=== PATIENT | male | born 1960 | race Caucasian/White ===

== ENCOUNTER → 2020-11-20 09:12 | Outpatient (BNVA) | payer OTHER, SELFPAY | PROVIDERS: PCP Internal Medicine; Visit Provider Internal Medicine Cardiovascular Disease | DX: I35.0 Nonrheumatic aortic (valve) stenosis (principal); I10 Essential (primary) hypertension; E78.5 Hyperlipidemia, unspecified; G45.9 Transient cerebral ischemic attack, unspecified | CPT/HCPCS: 93005 ==

== ENCOUNTER 2020-12-09 08:18 | Outpatient (REF) | payer OTHER, SELFPAY ==
--- NOTE | ~2020-12-09 | US_ITS ---
EXAMINATION: US EXTRACRANIAL CAROTID DUPLEX, BILATERAL CLINICAL INFORMATION: This is a 60-year-old male with history of TIA, hypertension, hyperlipidemia carotid artery disease. COMPARISON: None TECHNIQUE: Real-time ultrasound and Doppler techniques (integrating B-mode 2-D vascular images, Doppler spectral analysis and color-flow Doppler imaging) were utilized to interrogate the extracranial carotid arteries, the vertebral arteries and proximal subclavian arteries bilaterally. The degree of stenosis is determined by criteria similar to NASCET. FINDINGS: Right Side: 1. There is minimal atherosclerotic plaque seen in the bifurcation/proximal ICA region. 2. The common carotid artery PSV proximally is 115 cm/s and distally 115 cm/s. 3. The proximal internal carotid artery velocities are 145 cm/s systolic and 32 cm/s diastolic. 4. The proximal external carotid artery PSV is 173 cm/s. 5. The vertebral artery shows antegrade flow. 6. The subclavian artery waveforms are normal. Left Side: 1. There is minimal atherosclerotic plaque seen in the bifurcation/proximal ICA region. 2. The common carotid artery PSV proximally is 145 cm/s and distally 128 cm/s. 3. The proximal internal carotid artery velocities are 86 cm/s systolic and 37 cm/s diastolic. 4. The proximal external carotid artery PSV is 155 cm/s. 5. The vertebral artery shows antegrade flow. 6. The subclavian artery waveforms are normal. US/US carotid duplex BI IMPRESSION: 1. RIGHT: Moderate, hemodynamically significant stenosis of the proximal right internal carotid artery corresponding to a 50-79% stenosis by velocity criteria. 2. LEFT: Minimal, non-hemodynamically significant stenosis of the proximal left internal carotid artery corresponding to a 0-49% stenosis by velocity criteria. 3. An arrhythmia was noted during the duplex portion of the examination.
== END 2020-12-09 08:19 | disposition home or self-care (01) ==
LOC: HO.HMGCX 08:18
PROVIDERS: PCP Internal Medicine; Visit Provider Internal Medicine Cardiovascular Disease
DX: G45.9 Transient cerebral ischemic attack, unspecified (principal)
CPT/HCPCS: 93880

== ENCOUNTER → 2020-12-22 15:27 | Outpatient (BNVA) | payer OTHER, SELFPAY | PROVIDERS: PCP Internal Medicine; Visit Provider Surgery Vascular Surgery ==

== ENCOUNTER → 2021-02-26 10:44 | Outpatient (BNVA) | payer OTHER, SELFPAY | PROVIDERS: PCP Internal Medicine; Visit Provider Urology ==

== ENCOUNTER 2021-03-05 09:55 | Outpatient (REF) | payer OTHER, SELFPAY ==
[2021-03-05 10:35] LABS: MANUAL DIFF FLAG NO
[2021-03-05 10:38] LABS: Basophils Percent Auto 0.8 % (0-2); Eosinophils Absolute Auto 0.2 X10*3/uL (0.0-0.4); Eosinophils Percent Auto 4.3 % (0-4); Hematocrit 50.6 % (42-52); Hemoglobin 16.6 g/dl (14.0-18.0); Lymphocytes Absolute Auto 1.7 X10*3/uL (1.2-4.9); Lymphocytes Percent Auto 32.9 % (20-40); Mean Corpuscular HGB Conc 32.8 g/dl (31.0-36.0); Mean Corpuscular Volume 85.3 fL (80-98); Mean Platelet Volume 9.8 fL (9.4-12.4); Monocytes Absolute Auto 0.6 X10*3/uL (0.1-1.2); Monocytes Percent Auto 11.3 % (2-11); Neutrophils Absolute Auto 2.6 X10*3/uL (2.0-8.3); Neutrophils Percent Auto 50.7 % (45-73); Platelet Count 212 X10*3/uL (160-400); Red Blood Count 5.93 X10*6/uL (4.60-5.80); Red Cell Distribution Width 13.5 % (11.0-16.0); White Blood Count 5.1 X10*3/uL (4.8-10.8)
[2021-03-05 11:17] LABS: Alanine Aminotransferase 26 U/L (0-40); Albumin Level 4.3 g/dL (3.5-5.0); Alkaline Phosphatase 101 U/L (39-117); Anion Gap 13 (12-20); Aspartate Amino Transferase 19 U/L (5-37); Bilirubin Total 1.3 mg/dL (0.0-1.0); Blood Urea Nitrogen 18 mg/dL (9-16); Calcium 9.8 mg/dL (8.4-10.2); Carbon Dioxide 24 mmol/L (22-29); Chloride 108 mmol/L (96-108); Cholesterol 162 mg/dL; Estimated Glomerular Filt Rate > 60; Glucose Fasting 105 mg/dL (60-99); HDL Cholesterol 45 mg/dL; LDL Cholesterol Calculated 83 mg/dl; Potassium 4.7 mmol/L (3.3-5.1); Sodium 140 mmol/L (135-145); Total Protein 6.9 g/dL (6.5-8.0); Triglycerides 171 mg/dL
== END 2021-03-05 09:56 | disposition home or self-care (01) ==
LOC: HO.LAB 09:55
PROVIDERS: PCP Internal Medicine; Visit Provider Internal Medicine
DX: Z00.00 Encounter for general adult medical examination without abnormal findings (principal); E11.9 Type 2 diabetes mellitus without complications
CPT/HCPCS: 36415; 80053; 80061; 85025

== ENCOUNTER 2021-07-26 15:20 | Outpatient (REF) | payer OTHER, SELFPAY ==
--- NOTE | ~2021-07-26 | US_ITS ---
EXAMINATION: US EXTRACRANIAL CAROTID DUPLEX, BILATERAL CLINICAL INFORMATION: Occlusion and stenosis of bilateral carotid arteries. COMPARISON: Ultrasound carotid duplex bilateral 12/09/2020. TECHNIQUE: Real-time ultrasound and Doppler techniques (integrating B-mode 2-D vascular images, Doppler spectral analysis and color-flow Doppler imaging) were utilized to interrogate the extracranial carotid arteries, the vertebral arteries and proximal subclavian arteries bilaterally. The degree of stenosis is determined by criteria similar to NASCET. FINDINGS: Right Side: 1. There is minimal atherosclerotic plaque seen in the bifurcation/proximal ICA region. 2. The common carotid artery PSV proximally is 136 cm/s and distally 100 cm/s. Previously proximal and distal systolic velocity measured 115 cm/second. 3. The proximal internal carotid artery velocities are 76.2 cm/s systolic and 74.5 cm/s diastolic. Previously the systolic/diastolic velocity measured 145/32 cm/second 4. The proximal external carotid artery PSV is 125 cm/s. 5. The vertebral artery shows antegrade flow. 6. The subclavian artery waveforms are normal. Left Side: 1. There is minimal atherosclerotic plaque seen in the bifurcation/proximal ICA region. 2. The common carotid artery PSV proximally is 147 cm/s and distally 86.8 cm/s. 3. The proximal internal carotid artery velocities are 67.4 cm/s systolic and 34.6 cm/s diastolic. 4. The proximal external carotid artery PSV is 119 cm/s. 5. The vertebral artery shows antegrade flow. 6. The subclavian artery waveforms are normal. US/US carotid duplex BI IMPRESSION: 1. RIGHT: No hemodynamically significant stenosis. There is 0-49% range ICA stenosis. 2. LEFT: No hemodynamically significant stenosis. There is 0-49% range ICA stenosis. 3. There is improvement in right ICA moderate stenosis from 50-79% to 0-49% on the present exam. There is no change in the left ICA stenosis which is 0-49% range. 4. Normal antegrade flow seen in both vertebral arteries.
== END 2021-07-26 15:21 | disposition home or self-care (01) ==
LOC: HO.US 15:20
PROVIDERS: Visit Provider Surgery Vascular Surgery
DX: I65.23 Occlusion and stenosis of bilateral carotid arteries (principal)
CPT/HCPCS: 93880

== ENCOUNTER → 2021-08-05 15:38 | Outpatient (BNVA) | payer OTHER, SELFPAY | PROVIDERS: PCP Internal Medicine; Visit Provider Surgery Vascular Surgery ==

== ENCOUNTER → 2021-12-03 08:24 | Outpatient (BNVA) | payer OTHER, SELFPAY | PROVIDERS: PCP Internal Medicine; Referring Provider Internal Medicine; Visit Provider Internal Medicine Cardiovascular Disease | DX: R94.31 Abnormal electrocardiogram [ECG] [EKG] (principal) | CPT/HCPCS: 93005 ==

== ENCOUNTER → 2021-12-15 14:17 | Outpatient (REF) | payer OTHER, SELFPAY ==
--- NOTE | 2021-12-15 14:19 | CA_ITS ---
Transthoracic Echocardiogram Patient (Last, First, Middle): Mamadou Bran R Gender: Male Date of : 1960 Age: 61 Procedure Date: 12/15/2021 Procedure Type: Transthoracic Echocardiogram Location: OP Height: 175.26 cm Weight: 96.16 kg BSA: 2.12 m2 Heart Rate: bpm BP: 129 / 77 mmHg Rags Laborer: KERRIE Referring MD: Yan Aldana MD Symptoms: I35.0 - Nonrheumatic aortic (valve) stenosis Study Quality: Fair ECG Rhythm: Sinus Conclusions: - The left ventricular systolic function is normal. The calculated ejection fraction is 62% by biplane method. - There is moderate aortic valve stenosis. Findings Left Ventricle Normal left ventricular cavity size. There is mildly increased left ventricular wall thickness. The left ventricular systolic function is normal. The calculated ejection fraction is 62% by biplane method. There is no evidence of regional wall motion abnormalities. Diastolic function is normal for age. Right Ventricle Normal right ventricular cavity size and systolic function. Atria Both atria are normal in size. Aortic Valve There is moderate calcification of the aortic valve. There is moderate aortic valve stenosis. The peak aortic velocity is 3.09 m/s with a calculated peak gradient of 38 mmHg. The mean gradient is 23 mmHg. The aortic valve area is 1.17 cm2. There is no aortic valve regurgitation. Dimensionless index 0.36. Mitral Valve The mitral valve appears normal. There is no mitral valve regurgitation. There is no mitral valve stenosis. Pulmonic Valve The pulmonic valve was not well visualized. Tricuspid Valve There is trace tricuspid valve regurgitation. The pulmonary artery systolic pressure is normal. Great Vessels The aortic annulus, sinuses of valsalva, asc aorta, and aortic arch are normal in size. Venous The inferior vena cava was not well visualized. The inferior vena cava is normal in size and collapses less than 50% with inspiration. Pericardium/Pleural There is no evidence of pericardial effusion. Prior Study Comparison No prior study available for comparison. Measurements 2D Linear Measurements IVSd: 1.38 0.6-0.9/0.6-1.0 cm LVIDd: 3.66 3.9-5.3/4.2-5.9 cm LVIDd Index: 1.73 2.4-3.2/2.2-3.1 cm/m2 LVIDs: 2.53 2.0-3.6 cm LVPWd: 1.14 0.7-1.1 cm LA Diam: 3.00 2.7-3.8/3.0-4.0 cm LAIDs Index: 1.42 1.5-2.3 cm/m2 LV Mass: 194.48 67-162/88-224 g LV Mass Index: 91.74 43-95/49-115 g/m2 LVOT Diam: 2.00 3.0+(-)1.3 cm 2D Systolic Function EF 4C: 58.40 >55% EF 2C: 65.40 >55% EF BiP: 62.00 >55% Mitral Valve MV Pk E: 0.88 MV PK A: 0.95 MV Decel Time: 208.00 E/A: 0.90 E'Lateral: 9.68 E'Medial: 6.42 E/E' Med: 13.60 E/E' Lat: 9.00 PHT: 61.00 MVA PHT: 3.61 Decel Andrews: 4.21 Aortic Valve AoV Pk Surjit: 3.09 AoV Mn Surjit: 2.27 AoV VTI: 0.69 AoV Pk Grad: 38.00 Aov Mn Grad: 23.00 CLEOPATRA Cont.VTI: 1.17 LVOT LVOT Pk Surjit: 1.12 LVOT Mn Surjit: 0.79 LVOT VTI: 0.26 LVOT Pk Grad: 5.00 LVOT Mn Grad: 3.00 LVOT Diam: 2.00 LVOT Area: 3.14 Diastolic Function MV Pk E: 0.88 MV Pk A: 0.95 E/A: 0.90 E'Medial: 6.42 E/E' Med: 13.60 E' Laterial: 9.68 E/E' Lat: 9.00 Right Ventricle TAPSE (mm): 21.40 TVS' Surjit: 9.46 Tricuspid Valve TR Pk Surjit: 2.51 TR Pk Grad: 25.00 RA Press: 3.00 RVSP: 28.00 Great Vessels Aorta Sinus of Valsalva: 3.65 2.0-3.[address] Ridge: 2.32 1.7-3.4 cm Ao Asc: 3.40 2.1-3.4 cm Ao Arch: 3.10 Updated in Other Vendor System with Status of Final Aba Case MD electronically signed on 12/16/2021 12:07:41 PM with status of Final
== END ==
LOC: HO.CARD 14:17
PROVIDERS: PCP Internal Medicine; Visit Provider Internal Medicine Cardiovascular Disease
DX: I35.0 Nonrheumatic aortic (valve) stenosis (principal)
CPT/HCPCS: 93306

== ENCOUNTER → 2022-01-06 07:52 | Outpatient (REF) | payer OTHER, SELFPAY ==
--- NOTE | ~2022-01-06 | NM_ITS ---
Exercise Myocardial perfusion study Indication: Chest pain to evaluate for myocardial ischemia Technique: The patient was brought in for an exercise perfusion study on 01/06/2022. Patient performed exercise as per Braden protocol and was injected 35 mCi of sestamibi was given intravenously one target HR was achieved. Images were obtained using the SPECT gamma camera interlaced with the gating device. Images were obtained in supine position. Resting perfusion study was performed on 01/11/2022. Patient was administered 35 mCi of sestamibi intravenously at rest. Images were then obtained in supine position. Images obtained with and without CT attenuation. Total DLP 104 mGy-cm. Images were processed with the software and compared side to side in short axis, horizontal long axis and vertical long axis views. Findings: The stress perfusion study showed non attenuated images show absent uptake in the inferoapical and minimally reduced uptake in the inferior and moderately reduced uptake in the basal inferior wall of the LV myocardium. Is also mildly reduced uptake in the inferolateral and inferoseptal wall of the LV myocardium. Anterior septum, anterior anterolateral wall are normally perfused. Attenuation corrected images show absent uptake in the inferoapical wall of the LV myocardium as well as severely reduced uptake in the apex of the LV myocardium. The gated study shows normal LV systolic function with calculated LVEF of 60%. LV cavity is mildly dilated in size. The gated study shows normal systolic wall thickening and contraction of all segments. There is no transient ischemic dilation. Resting study shows non attenuated images show severely reduced uptake in the inferoapical and mid as well as moderately reduced uptake in the basal inferior and mildly reduced septal and inferolateral wall of the LV myocardium with possibly improved uptake in the inferoapical wall of the LV myocardium.. Gating at rest reveals normal systolic wall motion with ejection fraction at 55%. The findings are consistent with [partially reversible defect in the inferoapical and apical wall, either suggestive of mixed ischemia with infarction or severe ischemia in RCA. NM/NM cardiolite stress test Impression: 1. Severe ischemia and inferoapical wall 2. Gated LVEF is 65% 3. Transient ischemic dilatation not present Stress EKG is equivocal for ischemia
--- NOTE | 2022-01-06 07:59 | CA_ITS ---
Acquisition Time: 2022-01-06 08:12:15 Total Exercise Time: 00:07:15 Test Indications: Abnormal ECG Medications: AMLODIPINE ASA ATORVASTATIN CARVEDILOL Protocol: UVALDO Max HR: 150 BPM 93% of Pred: 160 BPM Max BP: 168/086 mmHG Max Work Load: 8.9 METS Exercise stress test with exercise 7 min 15 sec of Uvaldo protocol, without anginal symptoms, with isolated PACs and PVCs, with increased frequency of PVCs in stage 3 and early recovery, with normotensive response to exercise, with EKG abnormalities at baseline ( inferior, anterior Q waves, mild T inversion leads III, V6, slight ST elevation lead III) with no significant changes noted during exercise, recovery. Nuclear images pending. Test reviewed with Dr Case Referred By: Yan Aldana Overread By: SILVIA TANG
== END ==
LOC: HO.CARD 07:52
PROVIDERS: Visit Provider Internal Medicine Cardiovascular Disease
DX: R07.9 Chest pain, unspecified (principal); I25.10 Atherosclerotic heart disease of native coronary artery without angina pectoris; R94.31 Abnormal electrocardiogram [ECG] [EKG]
CPT/HCPCS: 78452; 93017; A9500

== ENCOUNTER 2022-02-17 07:51 | Outpatient (REF) | payer OTHER, SELFPAY ==
[2022-02-17 08:07] LABS: MANUAL DIFF FLAG NO
[2022-02-17 08:54] LABS: Basophils Absolute Auto 0.1 X10*3/uL (0.0-0.2); Basophils Percent Auto 1.3 % (0-2); Eosinophils Absolute Auto 0.2 X10*3/uL (0.0-0.4); Eosinophils Percent Auto 4.8 % (0-4); Hemoglobin 16.7 g/dl (14.0-18.0); Imm Gran Abs Auto 0.01 X10*3/uL (0.00-0.03); Imm Gran Pct Auto 0.2 % (0.0-0.4); Lymphocytes Absolute Auto 1.4 X10*3/uL (1.2-4.9); Lymphocytes Percent Auto 28.1 % (20-40); Mean Corpuscular HGB Conc 33.4 g/dl (31.0-36.0); Mean Corpuscular Hemoglobin 28.1 pg (27.0-33.0); Mean Corpuscular Volume 84.2 fL (80.0-98.0); Mean Platelet Volume 10.2 fL (9.4-12.4); Monocytes Absolute Auto 0.6 X10*3/uL (0.1-1.2); Monocytes Percent Auto 11.5 % (2-11); Neutrophils Absolute Auto 2.6 x10*3/uL (2.0-8.3); Neutrophils Percent Auto 54.1 % (45-73); Platelet Count 203 X10*3/uL (160-400); Red Blood Count 5.94 X10*6/uL (4.60-5.80); Red Cell Distribution Width 13.6 % (11.0-16.0); White Blood Count 4.8 X10*3/uL (4.8-10.8)
[2022-02-17 08:56] LABS: INTERNATIONAL NORM RATIO 0.9 (0.9-1.1); Prothrombin Time 10.5 SEC (10.0-13.1)
[2022-02-17 11:36] LABS: Alanine Aminotransferase 26 U/L (0-40); Albumin Level 4.3 g/dL (3.5-5.0); Alkaline Phosphatase 100 U/L (39-117); Anion Gap 14 (12-20); Aspartate Amino Transferase 19 U/L (5-37); Bilirubin Total 1.1 mg/dL (0.0-1.0); Blood Urea Nitrogen 18 mg/dL (9-16); Calcium 9.4 mg/dL (8.4-10.2); Carbon Dioxide 21 mmol/L (22-29); Chloride 106 mmol/L (96-108); Cholesterol 179 mg/dL; Estimated Glomerular Filt Rate > 60; Glucose Fasting 110 mg/dL (60-99); HDL Cholesterol 46 mg/dL; LDL Cholesterol Calculated 101 mg/dl; Potassium 4.2 mmol/L (3.3-5.1); Sodium 137 mmol/L (135-145); Total Protein 6.8 g/dL (6.5-8.0); Triglycerides 160 mg/dL
== END 2022-02-17 07:52 | disposition home or self-care (01) ==
LOC: HO.LAB 07:51
PROVIDERS: Absent Provider Internal Medicine; PCP Internal Medicine; Visit Provider Internal Medicine Cardiovascular Disease
DX: Z13.0 Encounter for screening for diseases of the blood and blood-forming organs and certain disorders involving the immune mechanism (principal); I10 Essential (primary) hypertension; I25.10 Atherosclerotic heart disease of native coronary artery without angina pectoris; E78.5 Hyperlipidemia, unspecified
CPT/HCPCS: 36415; 80048; 80053; 80061; 85025; 85610

== ENCOUNTER 2022-06-23 13:01 | Outpatient (RCR) | payer OTHER, SELFPAY ==
[2022-06-23 13:00] VITALS: BP 118/62; BP 138/76
--- NOTE | 2022-06-23 15:11 | MHC.CR.ITI ---
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 1 -Other Diagnosis cad, htn, hlp, aortic stenosis -Comments pt alert, oriented x 3. gait even and steady. denies having experienced chest pain, dyspnea since surgery. [Functional Assessment] -6 Min Walk (distance in ft) 1,300 -Stress Test (Mode) walk -METS Achieved 2.89 -Resting HR 74 -Resting BP 118/62 -Resting SpO2 96 -Exercise HR 98 -Exercise BP 138/76 -Exercise SpO2 98 -RPE 9 -Dyspnea No -ECG Summary SR [Pre Rehab] -Pre Rehab Home Exercise Yes -Mode walk -Exercise Minutes/Day 30-45 mins -Exercise Days/Week 7 -Intensity moderate -Comments has been walking every day since 1 week postop. states has improved duration of walk and increased his own stamina greatly -Risk Stratification: Intermediate Functional Risk Participants capacity < 5-6 METs -Fall Risk No -Assistive Devices None [Exercise Plan] [Intervention] -Exercise Prescription NuStep, Recumbent Bike, Recumbent Elliptical, Rower,Treadmill ,UBE,Upright Bike,Weights -Duration Intensity 36 Sessions -Frequency 2-3x/week -Angina with Exercise No [Exercise Education] -Exercise Education Exercise orientation, Exercise safety ,Home exercise, RPE,Self pulse checking,Signs and symptoms, Warmup/cooldown -Date Completed 06/23/22 -Initials JA -Education Summary at intake and ongoing is a nurse who monitor vs and weight daily [Exercise Goals] -Exercise Most Days of the Week Yes -Exercise 30-45 mins/day Yes -Target HR Range +20 - +30 beats above resting -Target RPE range 11-13 -Increase METS next 30 days 0.5-1.0 METS Every two weeks -METs goal by Discharge 4 METS [Nutrition] [Hyperlipidemia] -Hyperlipidemia Yes -Are lab results available Yes -Lipid Draw Date 02/17/22 -Total Cholesterol 179 -LDL 101 -HDL 46 -Tryglycerides 160 [Diabetes] -Diabetes No -Are lab results available Yes -Fasting Glucose 110 -Date 02/17/22 -Monitors Glucose No [Weight Management] -Height 5 ft 9 in -Weight 98.6 kg -Recommended Diet tries to eat low fat foods and watches sodium intake -Comments given reading food lables pamphlet, reducing salt intake and Dash Diet handouts is nurse and monitors diet [Drug/Alchohol Use] -Drug/Alcohol Use No -Type beer -Amount 2 beers q 2 mos -Comment light social drinker [Nutritional Screen (Rate Your Plate)] -Score 62 -Interpretation of Score makes some excellent choices -Comments very nutritionally aware and makes good choices [Nutrition Plan] [Intervention] -Referral(s) Not Applicable [Nutrition Education] -Nutrition Education Hydration, Nutrition, Reading food labels,Signs and symptoms of Hypo/Hyper- glycemia -Date Completed 06/23/22 -Initials ja -Education Summary discussed hydration and nutrition. denies having experienced s/s hypo/ hyperglycemia. 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 states not currently depressed but will monitor and discuss if it occurs -Patient Self-Reports Depression No -Family Support Lives with spouse/others -Comments college aged daughter still lives with family [Psycho/Social Plan] [Intervention] -Referral(s) No consult needed [Psycho/Social Education] -Psycho/Social Education Advanced directives, Coping techniques, Depression and CAD,Positive support system, Relaxation Techniques, Reviewed PHQ9 Score w/pt, Sexuality and CAD,Signs and symptoms of CAD ,Stress management -Date Completed 06/23/22 -Initials ja -Education Summary discussed PHQ9 and depression as well as relaxation and stress management. [Psycho/Social Goals] -Goals Not Applicable [Other Core Comp] [Risk Factors] -Risk Factors Dyslipidemia, Family History of CAD, Hypertension, Obesity -Comments: both parents had CAD w/ GABG / still living 18+ years post CABG [Hypertension] -Hypertention Yes -Resting BP: 118/62 [Tobacco Use] -Patient Tobacco Use Status Never used Tobacco -Patient Interested in Nicotine No Replacement -Exposure to secondhand smoke No [Heart Failure] -Heart Failure No [Other Core Comp Plan] [Intervention] -Referral(s) Self Monitoring BP,Not Applicable [Other Core Comp Education] -Other Core Comp Education HF Disease progression, Medication compliance,Risk factor modifications, RPD Scale/SOB management, Understanding hypertension -Date Completed 06/23/22 -Initials ja -Education Summary has good understanding of medication, RPD/RPE scale and modifying risk factors. [Other Core Comp Goals] -Goals Manage risk factors, Medication compliance, Resting BP < 130/80 [Medication Plan] [Intervention] -Medications metoprolol 25 mg bid furosemide 40 mg daily ASA 81 mg daily Atorvaststin 80 mg daily clopidogrel 75 mg daily -Compliance Patient reports compliance w/ prescribed meds [Medication Education] -Education Importance of medication compliance, Medication purpose, Medication schedule, Medication side effects -Date Completed 06/23/22 -Initials ja -Education Summary has good understanding of medication, purposes, side effects and monitoring [Medication Goals] -Goals Adherence to medication compliance -Comments states maintains medication regimen [Treatment Times] -Rehab Services with ECG Monitor -Time 1300 -End Time 1510 -Visit Duration 130
[2022-07-12 09:23] VITALS: BP 118/78; BMI 32.5
--- NOTE | 2022-07-12 09:36 | MHC.CR.ITR ---
[address] [phone] F: [phone] Please see additional notes from [facility] Cardiac Rehab Reassessment/ITP Cardiac Rehab Reassessment/ITP Start: 06/09/22 09:07 Freq: Status: Active Protocol: Activity Type Activity Date Activity User E-sign Co-sign Detail Recorded Client Recorded Date Recorded By Document 07/12/22 09:23 CANDICE [id number] 07/12/22 09:36 МАРИЯ 07/12/22 09:23 Cardiac Rehab Reassessment/ITP [Exercise] -Formula Maker Required No -Preferred Language Khmer -Progress Note Type 30-Day Note -Total Sessions Attended 7 -Comments pt alert, oriented x 3. gait even and steady. denies having experienced chest pain, dyspnea since surgery. has increased intensity and duration of workout with supervision and guidance. [Functional Assessment] -ECG Summary SR -Home-Based Rehab Pt approved for home-based exercise -Comments very active with ADLS, yard work etc. -Fall Risk No [Exercise Plan] [Intervention] -Exercise Prescription NuStep, Recumbent Bike, Recumbent Elliptical, Rower,Treadmill ,UBE,Upright Bike,Weights -Duration Intensity 36 Sessions -Exercise Minutes/Day 45 -Exercise Days/Week 7 -Angina with Exercise No -Peak METs 5 [Home Exercise] -Mode walk -Frequency daily -Intensity moderate -Comments states has been walking 30-45 minutes daily since 1 week post op [Exercise Education] -Exercise Education Exercise orientation, Exercise safety ,Home exercise, RPE,Self pulse checking,Signs and symptoms, Warmup/cooldown -Date Completed 06/23/22 -Initials JA -Education Summary at intake and ongoing is a nurse who monitor vs and weight daily [Exercise Goals] -Exercise Most Days of the Week Yes -Exercise 30-45 mins/day Yes -Target HR Range +20 - +30 beats above resting -Target RPE range 11-13 -Increase METS next 30 days 0.5-1.0 METS Every two weeks -METs goal by Discharge 4 METS [Nutrition] [Hyperlipidemia] -Are lab results available Yes -Hyperlipidemia Yes [Diabetes] -Diabetes No -Fasting Glucose 110 -Date 02/17/22 [Weight Management] -Weight 100 kg -BMI 32.5 -Comments given reading food lables pamphlet, reducing salt intake and Dash Diet handouts is nurse and monitors diet [Drug/Alchohol Use] -Drug/Alcohol Use No -Comment light social drinker [Nutrition Plan] [Intervention] -Attended Not Applicable [Nutrition Education] -Nutrition Education Hydration, Nutrition, Reading food labels,Signs and symptoms of Hypo/Hyper- glycemia -Date Completed 06/23/22 -Initials ja -Education Summary discussed hydration and nutrition. denies having experienced s/s hypo/ hyperglycemia. [Nutrition Goals] -Goals BMI < 25, Fasting BG 80- 120 mg/dL,HDL > 40,LDL < 70, Total CHOL < 200 [Psycho/Social] -PHQ9 Score 0 -Interpretation of Score low risk for depression -Plan of Action/Follow-up no action needed -Patient Self-Reports Depression No -Comments discussed depression and CAD. states not currently depressed but will monitor and discuss if it occurs [Psycho/Social Plan] [Intervention] -Attended No consult needed [Psycho/Social Education] -Psycho/Social Education Advanced directives, Coping techniques, Depression and CAD,Positive support system, Relaxation Techniques, Reviewed PHQ9 Score w/pt, Sexuality and CAD,Signs and symptoms of CAD ,Stress management -Date Completed 06/23/22 -Initials ja -Education Summary discussed PHQ9 and depression as well as relaxation and stress management. [Psycho/Social Goals] -Goals Not Applicable [Other Core Comp] [Hypertension] -Hypertention Yes -Resting BP: 118/78 -Medication Changes No [Tobacco Use] -Change in Use No [Heart Failure] -Heart Failure No [Other Core Comp Plan] [Intervention] -Attended Self Monitoring BP,Not Applicable [Other Core Comp Education] -Other Core Comp Education HF Disease progression, Medication compliance,Risk factor modifications, RPD Scale/SOB management, Understanding hypertension -Date Completed 06/23/22 -Initials ja -Education Summary has good understanding of medication, RPD/RPE scale and modifying risk factors. [Other Core Comp Goals] -Goals Manage risk factors, Medication compliance, Resting BP < 130/80 [Medication Plan] [Intervention] -Medications metoprolol 25 mg bid furosemide 40 mg daily ASA 81 mg daily Atorvaststin 80 mg daily clopidogrel 75 mg daily -Compliance Patient reports compliance w/ prescribed meds [Medication Education] -Education Importance of medication compliance, Medication purpose, Medication schedule, Medication side effects -Date Completed 06/23/22 -Initials ja -Education Summary has good understanding of medication, purposes, side effects and monitoring [Medication Goals] -Goals Adherence to medication compliance -Comments states maintains medication regimen
[2022-08-08 12:18] VITALS: BP 118/80; BMI 33.2
--- NOTE | 2022-08-08 12:19 | MHC.CR.ITR ---
[address] [phone] F: [phone] Please see additional notes from [facility] Cardiac Rehab Reassessment/ITP Cardiac Rehab Reassessment/ITP Start: 06/09/22 09:07 Freq: Status: Active Protocol: Activity Type Activity Date Activity User E-sign Co-sign Detail Recorded Client Recorded Date Recorded By Document 08/08/22 12:18 МАРИЯ Desktop 08/08/22 12:19 МАРИЯ 08/08/22 12:18 Cardiac Rehab Reassessment/ITP [Exercise] -Tooth Clerk Required No -Preferred Language Greek -Progress Note Type 60-Day Note -Total Sessions Attended 14 -Comments pt alert, oriented x 3. gait even and steady. denies having experienced chest pain, dyspnea since surgery. has increased intensity and duration of workout with supervision and guidance. [Functional Assessment] -ECG Summary SR -Home-Based Rehab Pt approved for home-based exercise -Comments very active with ADLS, yard work etc. -Fall Risk No [Exercise Plan] [Intervention] -Exercise Prescription NuStep, Recumbent Bike, Recumbent Elliptical, Rower,Treadmill ,UBE,Upright Bike,Weights -Duration Intensity 36 Sessions -Exercise Minutes/Day 45 -Exercise Days/Week 7 -Angina with Exercise No -Peak METs 5 [Home Exercise] -Mode walk -Frequency daily -Intensity moderate -Comments states has been walking 30-45 minutes daily since 1 week post op [Exercise Education] -Exercise Education Exercise orientation, Exercise safety ,Home exercise, RPE,Self pulse checking,Signs and symptoms, Warmup/cooldown -Date Completed 06/23/22 -Initials JA -Education Summary at intake and ongoing is a nurse who monitor vs and weight daily [Exercise Goals] -Exercise Most Days of the Week Yes -Exercise 30-45 mins/day Yes -Target HR Range +20 - +30 beats above resting -Target RPE range 11-13 -Increase METS next 30 days 0.5-1.0 METS Every two weeks -METs goal by Discharge 4 METS [Nutrition] [Hyperlipidemia] -Are lab results available Yes -Hyperlipidemia Yes [Diabetes] -Diabetes No -Fasting Glucose 110 -Date 02/17/22 [Weight Management] -Weight 101.9 kg -BMI 33.17 -Comments given reading food lables pamphlet, reducing salt intake and Dash Diet handouts is nurse and monitors diet [Drug/Alchohol Use] -Drug/Alcohol Use No -Comment light social drinker [Nutrition Plan] [Intervention] -Attended Not Applicable [Nutrition Education] -Nutrition Education Hydration, Nutrition, Reading food labels,Signs and symptoms of Hypo/Hyper- glycemia -Date Completed 06/23/22 -Initials ja -Education Summary discussed hydration and nutrition. denies having experienced s/s hypo/ hyperglycemia. [Nutrition Goals] -Goals BMI < 25, Fasting BG 80- 120 mg/dL,HDL > 40,LDL < 70, Total CHOL < 200 [Psycho/Social] -PHQ9 Score 0 -Interpretation of Score low risk for depression -Plan of Action/Follow-up no action needed -Patient Self-Reports Depression No -Comments discussed depression and CAD. states not currently depressed but will monitor and discuss if it occurs [Psycho/Social Plan] [Intervention] -Attended No consult needed [Psycho/Social Education] -Psycho/Social Education Advanced directives, Coping techniques, Depression and CAD,Positive support system, Relaxation Techniques, Reviewed PHQ9 Score w/pt, Sexuality and CAD,Signs and symptoms of CAD ,Stress management -Date Completed 06/23/22 -Initials ja -Education Summary discussed PHQ9 and depression as well as relaxation and stress management. [Psycho/Social Goals] -Goals Not Applicable [Other Core Comp] [Hypertension] -Hypertention Yes -Resting BP: 118/80 -Medication Changes No [Tobacco Use] -Change in Use No [Heart Failure] -Heart Failure No [Other Core Comp Plan] [Intervention] -Attended Self Monitoring BP,Not Applicable [Other Core Comp Education] -Other Core Comp Education HF Disease progression, Medication compliance,Risk factor modifications, RPD Scale/SOB management, Understanding hypertension -Date Completed 06/23/22 -Initials ja -Education Summary has good understanding of medication, RPD/RPE scale and modifying risk factors. [Other Core Comp Goals] -Goals Manage risk factors, Medication compliance, Resting BP < 130/80 [Medication Plan] [Intervention] -Medications metoprolol 25 mg bid furosemide 40 mg daily ASA 81 mg daily Atorvaststin 80 mg daily clopidogrel 75 mg daily -Compliance Patient reports compliance w/ prescribed meds [Medication Education] -Education Importance of medication compliance, Medication purpose, Medication schedule, Medication side effects -Date Completed 06/23/22 -Initials ja -Education Summary has good understanding of medication, purposes, side effects and monitoring [Medication Goals] -Goals Adherence to medication compliance -Comments states maintains medication regimen
[2022-09-20 07:49] VITALS: BP 122/64; BMI 32.9
--- NOTE | 2022-09-20 07:54 | MHC.CR.ITR ---
[address] [phone] F: [phone] Please see additional notes from [facility] Cardiac Rehab Reassessment/ITP Cardiac Rehab Reassessment/ITP Start: 06/09/22 09:07 Freq: Status: Active Protocol: Activity Type Activity Date Activity User E-sign Co-sign Detail Recorded Client Recorded Date Recorded By Document 09/20/22 07:49 KARLENESusanaCANDICE [id number] 09/20/22 07:54 МРАИЯ 09/20/22 07:49 Cardiac Rehab Reassessment/ITP [Exercise] -Accounts Adjustable Clerk Required No -Preferred Language Mongolian -Progress Note Type 90-Day Note -Total Sessions Attended 23 -Comments pt alert, oriented x 3. gait even and steady. denies having experienced chest pain, dyspnea since surgery. has increased intensity and duration of workout with supervision and guidance. [Functional Assessment] -ECG Summary SR -Home-Based Rehab Pt approved for home-based exercise -Comments very active with ADLS, yard work etc. -Fall Risk No [Exercise Plan] [Intervention] -Exercise Prescription NuStep, Recumbent Bike, Recumbent Elliptical, Rower,Treadmill ,UBE,Upright Bike,Weights -Duration Intensity 36 Sessions -Exercise Minutes/Day 60 -Exercise Days/Week 7 -Angina with Exercise No -Peak METs 5 [Home Exercise] -Mode walk -Frequency daily -Intensity moderate -Comments states has been walking 30-45 minutes daily since 1 week post op [Exercise Education] -Exercise Education Exercise orientation, Exercise safety ,Home exercise, RPE,Self pulse checking,Signs and symptoms, Warmup/cooldown -Date Completed 06/23/22 -Initials JA -Education Summary at intake and ongoing is a nurse who monitors vs and weight daily [Exercise Goals] -Exercise Most Days of the Week Yes -Exercise 30-45 mins/day Yes -Target HR Range +20 - +30 beats above resting -Target RPE range 11-13 -Increase METS next 30 days 0.5-1.0 METS Every two weeks -METs goal by Discharge 4 METS [Nutrition] [Hyperlipidemia] -Are lab results available Yes -Hyperlipidemia Yes -Comments 02/17/22 Chol- 179 Tri-160 HDL-46 LDL- 101 [Diabetes] -Diabetes No -Fasting Glucose 110 -Date 02/17/22 [Weight Management] -Weight 101 kg -BMI 32.88 -Comments given reading food lables pamphlet, reducing salt intake and Dash Diet handouts is nurse and monitors diet [Drug/Alchohol Use] -Drug/Alcohol Use No -Comment light social drinker [Nutrition Plan] [Intervention] -Attended Not Applicable [Nutrition Education] -Nutrition Education Hydration, Nutrition, Reading food labels,Signs and symptoms of Hypo/Hyper- glycemia -Date Completed 06/23/22 -Initials ja -Education Summary discussed hydration and nutrition. denies having experienced s/s hypo/ hyperglycemia. [Nutrition Goals] -Goals BMI < 25, Fasting BG 80- 120 mg/dL,HDL > 40,LDL < 70, Total CHOL < 200 [Psycho/Social] -PHQ9 Score 0 -Interpretation of Score low risk for depression -Plan of Action/Follow-up no action needed -Patient Self-Reports Depression No -Comments discussed depression and CAD. states not currently depressed but will monitor and discuss if it occurs [Psycho/Social Plan] [Intervention] -Attended No consult needed [Psycho/Social Education] -Psycho/Social Education Advanced directives, Coping techniques, Depression and CAD,Positive support system, Relaxation Techniques, Reviewed PHQ9 Score w/pt, Sexuality and CAD,Signs and symptoms of CAD ,Stress management -Date Completed 06/23/22 -Initials ja -Education Summary discussed PHQ9 and depression as well as relaxation and stress management. [Psycho/Social Goals] -Goals Not Applicable [Other Core Comp] [Hypertension] -Hypertention Yes -Resting BP: 122/64 -Medication Changes No [Tobacco Use] -Change in Use No [Heart Failure] -Heart Failure No [Other Core Comp Plan] [Intervention] -Attended Self Monitoring BP,Not Applicable [Other Core Comp Education] -Other Core Comp Education HF Disease progression, Medication compliance,Risk factor modifications, RPD Scale/SOB management, Understanding hypertension -Date Completed 06/23/22 -Initials ja -Education Summary has good understanding of medication, RPD/RPE scale and modifying risk factors. [Other Core Comp Goals] -Goals Manage risk factors, Medication compliance, Resting BP < 130/80 [Medication Plan] [Intervention] -Medications metoprolol 25 mg bid furosemide 40 mg daily ASA 81 mg daily Atorvaststin 80 mg daily clopidogrel 75 mg daily -Compliance Patient reports compliance w/ prescribed meds [Medication Education] -Education Importance of medication compliance, Medication purpose, Medication schedule, Medication side effects -Date Completed 06/23/22 -Initials ja -Education Summary has good understanding of medication, purposes, side effects and monitoring [Medication Goals] -Goals Adherence to medication compliance -Comments states maintains medication regimen
[2022-10-27 09:05] VITALS: BP 122/62; BP 122/68; BMI 32.9
--- NOTE | 2022-10-27 09:13 | MHC.CR.ITD ---
[address] [phone] F: [phone] Please see additional notes from [facility] Cardiac Rehab Discharge/ITP Cardiac Rehab Discharge/ITP Start: 06/09/22 09:07 Freq: Status: Active Protocol: Activity Type Activity Date Activity User E-sign Co-sign Detail Recorded Client Recorded Date Recorded By Document 10/27/22 09:05 JATIN Desktop 10/27/22 09:13 JATIN 10/27/22 09:05 Cardiac Rehab Discharge/ITP [Exercise] -Night Clerk Required No -Preferred Language Kiswahili -Total Sessions Attended 36 -Comments pt alert, oriented x 3. gait even and steady. denies having experienced chest pain, dyspnea since surgery. has increased intensity and duration of workout with supervision and guidance. [Functional Assessment] -6 Min Walk (distance in ft) 1,275 -Stress Test (Mode) walk -METS Achieved 2.85 -Resting HR 85 -Resting BP 122/68 -Resting SpO2 97 -Exercise HR 99 -Exercise BP 122/62 -Exercise SpO2 97 -RPE 6 -Dyspnea NO -ECG Summary SR -Fall Risk No [Exercise Plan] [Intervention] -Exercise Prescription NuStep, Recumbent Bike, Recumbent Elliptical, Rower,Treadmill ,UBE,Upright Bike,Weights -Duration Intensity 36 Sessions -Exercise Minutes/Day 60 -Exercise Days/Week 7 -Angina with Exercise No -Peak METs 5.1 [Home Exercise] -Mode walk -Frequency daily -Intensity moderate -Comments CURRENTLY WALKING 60 MIN /DAY. states has been walking 30-45 minutes daily since 1 week post op [Exercise Education] -Exercise Education Exercise orientation, Exercise safety ,Home exercise, RPE,Self pulse checking,Signs and symptoms, Warmup/cooldown -Date Completed 06/23/22 -Initials JA -Education Summary at intake and ongoing is a nurse who monitors vs and weight daily [Exercise Goals] -Exercise Most Days of the Week Yes -Exercise 30-45 mins/day Yes -Target HR Range +20 - +30 beats above resting -Target RPE range 11-13 -Increase METS next 30 days 0.5-1.0 METS Every two weeks -METs goal by Discharge 5 METS [Nutrition] [Hyperlipidemia] -Are lab results available Yes -Hyperlipidemia Yes -Lipid Draw Date 10/07/22 -Total Cholesterol 151 -LDL 87 -HDL 43 -Tryglycerides 109 -Comments 02/17/22 Chol- 179 Tri-160 HDL-46 LDL- 101 [Diabetes] -Diabetes No -Fasting Glucose 107 -Date 10/07/22 [Weight Management] -Weight 101 kg -BMI 32.88 -Comments given reading food lables pamphlet, reducing salt intake and Dash Diet handouts is nurse and monitors diet [Drug/Alchohol Use] -Drug/Alcohol Use No -Comment light social drinker [Nutrition Plan] [Intervention] -Attended Nutrition Brochures,Not Applicable [Nutrition Education] -Nutrition Education Hydration, Nutrition, Reading food labels,Signs and symptoms of Hypo/Hyper- glycemia -Date Completed 06/23/22 -Initials ja -Education Summary discussed hydration and nutrition. denies having experienced s/s hypo/ hyperglycemia. [Nutrition Goals] -Goals BMI < 25, Fasting BG 80- 120 mg/dL,HDL > 40,LDL < 70, Total CHOL < 200 [Psycho/Social] -PHQ9 Score 0 -Interpretation of Score low risk for depression -Plan of Action/Follow-up no action needed -Patient Self-Reports Depression No -Comments discussed depression and CAD. states not currently depressed but will monitor and discuss if it occurs [Psycho/Social Plan] [Intervention] -Attended No consult needed [Psycho/Social Education] -Psycho/Social Education Advanced directives, Coping techniques, Depression and CAD,Positive support system, Relaxation Techniques, Reviewed PHQ9 Score w/pt, Sexuality and CAD,Signs and symptoms of CAD ,Stress management -Date Completed 06/23/22 -Initials ja -Education Summary discussed PHQ9 and depression as well as relaxation and stress management. [Psycho/Social Goals] -Goals Not Applicable [Other Core Comp] [Hypertension] -Hypertention Yes -Resting BP: 122/68 -Medication Changes No [Tobacco Use] -Change in Use No [Other Core Comp Plan] [Intervention] -Attended Self Monitoring BP,Not Applicable [Other Core Comp Education] -Other Core Comp Education HF Disease progression, Medication compliance,Risk factor modifications, RPD Scale/SOB management, Understanding hypertension -Date Completed 06/23/22 -Initials ja -Education Summary has good understanding of medication, RPD/RPE scale and modifying risk factors. [Other Core Comp Goals] -Goals Manage risk factors, Medication compliance, Resting BP < 130/80 [Medication Plan] [Intervention] -Medications metoprolol 25 mg bid furosemide 40 mg daily ASA 81 mg daily Atorvaststin 80 mg daily clopidogrel 75 mg daily -Compliance Patient reports compliance w/ prescribed meds [Medication Education] -Education Importance of medication compliance, Medication purpose, Medication schedule, Medication side effects -Date Completed 06/23/22 -Initials ja -Education Summary has good understanding of medication, purposes, side effects and monitoring [Medication Goals] -Goals Adherence to medication compliance -Comments states maintains medication regimen
== END 2022-10-28 10:31 | disposition home or self-care (01) ==
LOC: HO.CR 13:01
PROVIDERS: PCP Internal Medicine; Visit Provider Thoracic Surgery (Cardiothoracic Vascular Surgery)
DX: Z95.1 Presence of aortocoronary bypass graft (principal)
CPT/HCPCS: 93798

== ENCOUNTER → 2022-07-13 09:22 | Outpatient (REF) | payer OTHER, SELFPAY ==
[2022-06-23 13:00] VITALS: BP 118/62; BP 138/76
--- NOTE | 2022-07-13 09:25 | CA_ITS ---
Transthoracic Echocardiogram Patient (Last, First, Middle): Mamadou Bran R Gender: Male Date of : 1960 Age: 62 Procedure Date: 07/13/2022 Procedure Type: Transthoracic Echocardiogram Location: OP Height: 175.26 cm Weight: 99.79 kg BSA: 2.15 m2 Heart Rate: 72 bpm BP: 118 / 70 mmHg Drilling Machine Operator: SB Referring MD: Yan Aldana MD Symptoms: Z95.2 - Presence of prosthetic heart valve Study Quality: Adequate ECG Rhythm: Sinus Conclusions: - The left ventricular systolic function is normal. The visually estimated ejection fraction is between 60-65%. - A bioprosthetic aortic valve is present. The prosthetic aortic valve appears to be functioning normally. Findings Left Ventricle Normal left ventricular cavity size. There is mildly increased left ventricular wall thickness. The left ventricular systolic function is normal. The visually estimated ejection fraction is between 60-65%. There is no evidence of regional wall motion abnormalities. There is paradoxical septal motion consistent with post-operative status. Diastolic function is normal for age. There is moderate septal asymmetric hypertrophy. LV peak GLS -16%. Right Ventricle Mildly increased right ventricular cavity size. There is moderate to severely decreased right ventricular systolic function. Atria Both atria are normal in size. Aortic Valve A bioprosthetic aortic valve is present. The prosthetic aortic valve appears to be functioning normally. The mean gradient is 13 mmHg. There is no aortic valve regurgitation. Mitral Valve There is mild mitral annular calcification. There is no mitral valve regurgitation. There is no mitral valve stenosis. Pulmonic Valve The pulmonic valve is likely normal. Tricuspid Valve There is trace tricuspid valve regurgitation. There is no evidence of pulmonary hypertension. Great Vessels The asc aorta is normal in size. Venous The inferior vena cava is normal in size and collapses greater than 50% with inspiration. Pericardium/Pleural There is no evidence of pericardial effusion. Prior Study Comparison Changes noted compared to prior study dated: 12/15/2021. s/p AVR. Measurements 2D Linear Measurements IVSd: 1.30 0.6-0.9/0.6-1.0 cm LVIDd: 4.58 3.9-5.3/4.2-5.9 cm LVIDd Index: 2.13 2.4-3.2/2.2-3.1 cm/m2 LVIDs: 2.73 2.0-3.6 cm LVPWd: 1.06 0.7-1.1 cm LA Diam: 4.10 2.7-3.8/3.0-4.0 cm LAIDs Index: 1.91 1.5-2.3 cm/m2 LV Mass: 247.71 67-162/88-224 g LV Mass Index: 115.21 43-95/49-115 g/m2 LVOT Diam: 2.20 3.0+(-)1.3 cm 2D Systolic Function EF 4C: 58.40 >55% EF 2C: 65.30 >55% EF BiP: 62.30 >55% Mitral Valve MV Pk E: 1.13 MV PK A: 0.83 MV Decel Time: 200.00 E/A: 1.40 E'Lateral: 6.85 E'Medial: 5.33 E/E' Med: 21.20 E/E' Lat: 16.50 PHT: 59.00 MVA PHT: 3.73 Decel Elbert: 5.63 Aortic Valve AoV Pk Surjit: 2.41 AoV Mn Surjit: 1.68 AoV VTI: 0.46 AoV Pk Grad: 23.00 Aov Mn Grad: 13.00 CLEOPATRA Cont.VTI: 2.03 LVOT LVOT Pk Srujit: 1.22 LVOT Mn Surjit: 0.86 LVOT VTI: 0.24 LVOT Pk Grad: 6.00 LVOT Mn Grad: 3.00 LVOT Diam: 2.20 LVOT Area: 3.80 Diastolic Function MV Pk E: 1.13 MV Pk A: 0.83 E/A: 1.40 E'Medial: 5.33 E/E' Med: 21.20 E' Laterial: 6.85 E/E' Lat: 16.50 Right Ventricle TAPSE (mm): 7.30 TVS' Surjit: 8.20 Tricuspid Valve TR Pk Surjit: 2.35 TR Pk Grad: 22.00 RA Press: 3.00 RVSP: 25.00 Great Vessels Aorta Ao Asc: 3.20 2.1-3.4 cm Pulmonary Veins Pulm Vein S/D 1.20 Pulmonary Valve PV Pk Surjit: 1.43 Peak PV Grad: 8.00 Updated in Other Vendor System with Status of Final Aba Case MD electronically signed on 07/16/2022 1:59:50 PM with status of Final
== END ==
LOC: HO.CARD 09:22
PROVIDERS: PCP Internal Medicine; Visit Provider Internal Medicine Cardiovascular Disease
DX: Z95.2 Presence of prosthetic heart valve (principal)
CPT/HCPCS: 93306; 93356

== ENCOUNTER 2022-09-08 09:51 | Outpatient (REF) | payer OTHER, SELFPAY ==
[2022-06-23 13:00] VITALS: BP 118/62; BP 138/76
--- NOTE | ~2022-09-08 | US_ITS ---
EXAMINATION: US EXTRACRANIAL CAROTID DUPLEX, BILATERAL CLINICAL INFORMATION: Carotid stenosis. COMPARISON: 07/26/2021. TECHNIQUE: Real-time ultrasound and Doppler techniques (integrating B-mode 2-D vascular images, Doppler spectral analysis and color-flow Doppler imaging) were utilized to interrogate the extracranial carotid arteries, the vertebral arteries and proximal subclavian arteries bilaterally. The degree of stenosis is determined by criteria similar to NASCET. FINDINGS: Right Side: 1. There is minimal atherosclerotic plaque seen in the bifurcation/proximal ICA region. 2. The common carotid artery PSV proximally is 130 cm/s and distally 8. cm/s. 3. The proximal internal carotid artery velocities are 71 cm/s systolic and 22 cm/s diastolic. 4. The proximal external carotid artery PSV is 157 cm/s. 5. The vertebral artery shows antegrade flow. 6. The subclavian artery waveforms are normal. Left Side: 1. There is minimal atherosclerotic plaque seen in the bifurcation/proximal ICA region. 2. The common carotid artery PSV proximally is 88 cm/s and distally 55 cm/s. 3. The proximal internal carotid artery velocities are 73 cm/s systolic and 26 cm/s diastolic. 4. The proximal external carotid artery PSV is 149 cm/s. 5. The vertebral artery shows antegrade flow. 6. The subclavian artery waveforms are normal. US/US carotid duplex BI IMPRESSION: 1. RIGHT: Minimal, non-hemodynamically significant stenosis of the proximal right internal carotid artery corresponding to a 0-49% stenosis by velocity criteria. 2. LEFT: Minimal, non-hemodynamically significant stenosis of the proximal left internal carotid artery corresponding to a 0-49% stenosis by velocity criteria. 3. There is no change in the category severity of disease when compared to the previous study dated 07/26/2021.
== END 2022-09-08 09:52 | disposition home or self-care (01) ==
LOC: HO.US 09:51
PROVIDERS: PCP Internal Medicine; Visit Provider Surgery Vascular Surgery
DX: I65.23 Occlusion and stenosis of bilateral carotid arteries (principal)
CPT/HCPCS: 93880

== ENCOUNTER → 2022-09-20 15:09 | Outpatient (BNVA) | payer OTHER, SELFPAY ==
[2022-06-23 13:00] VITALS: BP 118/62; BP 138/76
[2022-09-20 07:49] VITALS: BP 122/64; BMI 32.9
== END ==
PROVIDERS: PCP Internal Medicine; Visit Provider Surgery Vascular Surgery
DX: Z13.89 Encounter for screening for other disorder (principal)

== ENCOUNTER → 2022-09-30 08:35 | Outpatient (BNVA) | payer OTHER, SELFPAY ==
[2022-06-23 13:00] VITALS: BP 118/62; BP 138/76
[2022-09-20 07:49] VITALS: BP 122/64; BMI 32.9
== END ==
PROVIDERS: PCP Internal Medicine; Visit Provider Internal Medicine Cardiovascular Disease
DX: Z13.89 Encounter for screening for other disorder (principal)
CPT/HCPCS: 93005

== ENCOUNTER 2022-10-07 08:32 | Outpatient (REF) | payer OTHER, SELFPAY ==
[2022-06-23 13:00] VITALS: BP 118/62; BP 138/76
[2022-10-07 08:59] LABS: MANUAL DIFF FLAG NO
[2022-10-07 09:03] LABS: Basophils Absolute Auto 0.1 X10*3/uL (0.0-0.2); Basophils Percent Auto 1.3 % (0-2); Eosinophils Absolute Auto 0.2 X10*3/uL (0.0-0.4); Eosinophils Percent Auto 3.6 % (0-4); Hemoglobin 17.9 g/dl (14.0-18.0); Imm Gran Abs Auto 0.01 X10*3/uL (0.00-0.03); Imm Gran Pct Auto 0.2 % (0.0-0.4); Lymphocytes Absolute Auto 1.5 X10*3/uL (1.2-4.9); Lymphocytes Percent Auto 31.8 % (20-40); Mean Corpuscular HGB Conc 32.5 g/dl (31.0-36.0); Mean Corpuscular Hemoglobin 26.1 pg (27.0-33.0); Mean Corpuscular Volume 80.2 fL (80.0-98.0); Mean Platelet Volume 9.5 fL (9.4-12.4); Monocytes Absolute Auto 0.6 X10*3/uL (0.1-1.2); Monocytes Percent Auto 12.6 % (2-11); Neutrophils Absolute Auto 2.4 x10*3/uL (2.0-8.3); Neutrophils Percent Auto 50.5 % (45-73); Platelet Count 222 X10*3/uL (160-400); Red Blood Count 6.86 X10*6/uL (4.60-5.80); Red Cell Distribution Width 18.2 % (11.0-16.0); White Blood Count 4.8 X10*3/uL (4.8-10.8)
[2022-10-07 09:54] LABS: Alanine Aminotransferase 31 U/L (0-40); Albumin Level 4.3 g/dL (3.5-5.0); Alkaline Phosphatase 106 U/L (39-117); Anion Gap 14 (12-20); Aspartate Amino Transferase 25 U/L (5-37); Bilirubin Total 1.4 mg/dL (0.0-1.0); Blood Urea Nitrogen 17 mg/dL (9-16); Calcium 9.8 mg/dL (8.4-10.2); Carbon Dioxide 26 mmol/L (22-29); Chloride 105 mmol/L (96-108); Cholesterol 151 mg/dL; Estimated Glomerular Filt Rate > 60; Glucose Fasting 107 mg/dL (60-99); HDL Cholesterol 43 mg/dL; LDL Cholesterol Calculated 87 mg/dl; Potassium 5.2 mmol/L (3.3-5.1); Sodium 140 mmol/L (135-145); Total Protein 6.7 g/dL (6.5-8.0); Triglycerides 109 mg/dL
[2022-10-07 10:12] LABS: Thyroid Stimulating Hormone 0.59 uIU/mL (0.32-4.0)
== END 2022-10-07 08:33 | disposition home or self-care (01) ==
LOC: HO.LAB 08:32
PROVIDERS: PCP Internal Medicine; Visit Provider Internal Medicine
DX: N28.9 Disorder of kidney and ureter, unspecified (principal); E03.9 Hypothyroidism, unspecified; I25.10 Atherosclerotic heart disease of native coronary artery without angina pectoris; D64.9 Anemia, unspecified
CPT/HCPCS: 36415; 80053; 80061; 84443; 85025

== ENCOUNTER → 2022-10-11 07:12 | Outpatient (REF) | payer OTHER, SELFPAY ==
[2022-06-23 13:00] VITALS: BP 118/62; BP 138/76
[2022-09-20 07:49] VITALS: BP 122/64; BMI 32.9
--- NOTE | 2022-10-11 07:17 | HM_ITS ---
* Total monitoring time approximately 3 days. * Underlying rhythm is sinus. Average ventricular rate 74/Min. Range 60 to 106/Min. * Very rare PACs with minimal burden. * Very rare PVCs with minimal burden. One short run of 4 beats. * No significant pauses or AV blocks. * Patient markers correlated with normal sinus rhythm. Dizziness and pounding in patient diary also correlate with sinus rhythm. MTDD
== END ==
LOC: HO.CARD 07:12
PROVIDERS: Visit Provider Internal Medicine Cardiovascular Disease
DX: R42 Dizziness and giddiness (principal); Z95.1 Presence of aortocoronary bypass graft
CPT/HCPCS: 93242

== ENCOUNTER 2023-02-14 06:11 | Outpatient (REF) | payer OTHER, SELFPAY ==
[2023-02-14 07:13] LABS: Hematocrit 52.1 % (42.0-52.0); Hemoglobin 17.4 g/dl (14.0-18.0); Mean Corpuscular HGB Conc 33.4 g/dl (31.0-36.0); Mean Corpuscular Hemoglobin 28.5 pg (27.0-33.0); Mean Corpuscular Volume 85.3 fL (80.0-98.0); Mean Platelet Volume 10.4 fL (9.4-12.4); Platelet Count 190 X10*3/uL (160-400); Red Blood Count 6.11 X10*6/uL (4.60-5.80); Red Cell Distribution Width 13.9 % (11.0-16.0); White Blood Count 4.9 X10*3/uL (4.8-10.8)
[2023-02-14 07:45] LABS: Cholesterol 165 mg/dL; HDL Cholesterol 42 mg/dL; LDL Cholesterol Calculated 79 mg/dl; Triglycerides 224 mg/dL
== END 2023-02-14 06:12 | disposition home or self-care (01) ==
LOC: HO.LAB 06:11
PROVIDERS: PCP Internal Medicine; Visit Provider Internal Medicine Cardiovascular Disease
DX: I25.10 Atherosclerotic heart disease of native coronary artery without angina pectoris (principal)
CPT/HCPCS: 36415; 80061; 85027

== ENCOUNTER 2023-04-10 08:47 | Outpatient (AMB) | payer OTHER, SELFPAY ==
[2022-06-23 13:00] VITALS: BP 118/62; BP 138/76
[2023-04-10 08:49] VITALS: BP 122/72; PULSE 78; BMI 34.0
--- NOTE | 2023-04-10 08:49 | A.OFFVIS_ITS ---
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 He has been overall doing very well. Denies any cardiac symptoms. Denies any exertional chest pain or shortness of breath. Most recent lipid panel shows LDL of 79 mg/dL with triglycerides of 224. He has been trying to maintain diet. He denies any prolonged palpitations. No lightheadedness, syncope. [facility] Medical History Aortic stenosis CAD (coronary artery disease) History of kidney stones HTN (hypertension) Hyperlipidemia Surgical History History of appendectomy History of hernia surgery S/P AVR S/P CABG x 3 Family History Father CVD (cardiovascular disease) Mother CVD (cardiovascular disease) Social History Housing: House Alcohol intake: current Alcohol intake frequency: holidays/special occasions only Patient Tobacco Use Status: Never used Tobacco e-Cigarette/Vaping Use: Never Used Second Hand Smoke Exposure: No service: No Current occupational status: employed Cognitive needs: No Hearing needs: No Vision needs: Yes (reading glasses) Review of Systems Const Denies weakness ENT Denies dizziness Card Denies chest pain, Denies chest pain with activity, Denies syncope, Denies rapid heart rate, Denies pedal edema, Denies edema, Denies leg edema, Denies lightheadedness, Denies palpitations, Denies dyspnea, Denies dyspnea on exertion and Denies orthopnea Resp Denies cough, Denies dyspnea and Denies dyspnea on exertion GI Denies hematochezia and Denies change in stool character Musc Denies abnormal gait, Denies muscle cramps, Denies muscle weakness, Denies numbness, Denies radiating pain into limb and Denies tingling Neuro Denies abnormal gait, Denies dizziness, Denies syncope, Denies numbness, Denies tingling and Denies weakness Endo Denies palpitations Physical Exam Vital Signs: Last Vital Signs Pulse 78 04/10/23 08:49 BP 122/72 04/10/23 08:49 BMI result Body Mass Index 34.0 Const General: cooperative, comfortable, no acute distress, alert, awake and anxious Nutritional Appearance: overweight Orientation/consciousness: patient oriented x3 Limitations: no limitations HEENT Head: Yes normocephalic and Yes atraumatic Neck Neck: Yes trachea midline, Yes supple and Yes no JVD Chest Chest palpation & inspection: normal inspection of the chest and other (Well- healed sternotomy scar) Resp Effort & Inspection: normal respiratory effort Auscultation: clear to auscultation bilaterally Cardio Jugular venous distension: no JVD Palpation: normal PMI Rate: regular rate Rhythm: regular rhythm Heart sounds: S1 normal heart sound present, S2 normal heart sound present and Murmur heart sound present systolic early and soft GI Inspection: Yes normal to inspection Skin General skin exam: no rashes or lesions noted Neuro General: patient oriented x3 and no focal motor deficits Extrem General: Yes no clubbing, cyanosis or edema Psych Appearance: grossly normal Assessment & Plan Assessment & Plan (1) CAD (coronary artery disease): Code(s): I25.10 - Atherosclerotic heart disease of [place] coronary artery without angina pectoris Plan: CAD status post 3 vessel coronary bypass grafting with mild carotid disease. Diffuse atherosclerotic process. Needs more aggressive medical therapy. Needs further modification of lipids. Will switch him to bempedoic acid in place of ezetimibe. Target goal LDL closer to 60 mg/dL. Advised to also participate in diet modification. Regular physical activity is recommended. Weight loss recommended. Blood pressure is currently well optimized advised to monitor blood pressure at home maintain a log. Goal blood pressure less than 130/84. Advised to exercise on a regular basis. (2) S/P AVR: Comment: 23 mm bioprosthetic aortic valve concomitant with coronary artery bypass grafting for moderate aortic stenosis Code(s): Z95.2 - Presence of prosthetic heart valve Plan: Status bioprosthetic aortic valve with mild murmur. Does not suggestive any progressive disease of the bioprosthetic valve. Continue aspirin therapy. SBE prophylaxis as per ACC/aha guidelines. Continue aggressive risk factor modifications above. Will follow up in the clinic in 6 months time after an echocardiogram. Thank you for allowing me to partake in his care Medications: New bempedoic acid 180 mg PO DAILY 30 tabs 5RF Discontinued ezetimibe Discontinued Reason: Doctor's Order 10 mg PO DAILY 30 tabs 5RF Coding Level of Care Code Est Pt Level 4 (12832) Diagnoses CAD (coronary artery disease) I25.10 S/P AVR Z95.2
== END 2023-04-10 09:06 | disposition home or self-care (01) ==
PROVIDERS: PCP Internal Medicine; Referring Provider Internal Medicine; Visit Provider Internal Medicine Cardiovascular Disease
DX: I25.10 Atherosclerotic heart disease of native coronary artery without angina pectoris (principal); Z95.2 Presence of prosthetic heart valve
CPT/HCPCS: 99214

== ENCOUNTER → 2023-04-10 08:47 | Outpatient (BNVA) | payer OTHER, SELFPAY | PROVIDERS: PCP Internal Medicine; Referring Provider Internal Medicine; Visit Provider Internal Medicine Cardiovascular Disease ==

== ENCOUNTER 2023-10-13 06:13 | Outpatient (REF) | payer OTHER, SELFPAY ==
[2023-04-10 09:05] VITALS: BP 122/62; BP 122/68; BMI 32.9
[2023-10-13 07:43] LABS: Cholesterol 118 mg/dL (<200); HDL Cholesterol 38 mg/dL (>40); LDL Cholesterol Calculated 6 mg/dL (<100); Triglycerides 371 mg/dL (<150)
[2023-10-16 13:49] LABS: CRP High Sensitivity 0.9 mg/L
== END 2023-10-13 06:14 | disposition home or self-care (01) ==
LOC: HO.LAB 06:13
PROVIDERS: PCP Internal Medicine; Visit Provider Internal Medicine Cardiovascular Disease
DX: I25.10 Atherosclerotic heart disease of native coronary artery without angina pectoris (principal); I10 Essential (primary) hypertension; E78.5 Hyperlipidemia, unspecified
CPT/HCPCS: 36415; 80061; 86141

== ENCOUNTER 2023-10-19 08:37 | Outpatient (AMB) | payer OTHER, SELFPAY ==
[2023-04-10 09:05] VITALS: BP 122/62; BP 122/68; BMI 32.9
--- NOTE | 2023-10-19 08:48 | MHC.OFFVIS ---
Intake Vital Signs 10/19/23 08:49 Height 5 ft 9 in Weight 224 lb 13.944 oz BMI 33.2 BP 112/72 Blood Pressure Location Lt brachial Position Sitting Pulse 66 Intake Visit Reasons: 6 mth f/up echo Intake Note: pt is here for 6 month follow up ECHO Allergies No Known Allergies Allergy (Verified 04/10/23 08:51) Medication List - Last Reconciled 10/19/23 by Yan Aldana MD aspirin 81 mg PO DAILY atorvastatin 40 mg PO BEDTIME bempedoic acid 180 mg PO DAILY metoprolol tartrate 25 mg PO BID 90 days HPI HPI Comments History of Present Illness Details Mamadou comes for follow-up. Continues to have symptoms of dizziness, says that he feels like he swaying. He also gets dizziness in the shower. He said he does not drink enough water in the day. He has not had any syncopal episodes. No incoordination imbalance or any focal neurologic deficits. He denies any prolonged palpitation irregular heartbeat. Remains active. He had carotid duplex last year which showed mild disease. His last LDL was 6 mg/dL after adding bempedoic acid. We had therefore reduced his atorvastatin to 40 mg daily. No heart failure symptoms. [facility] Medical History CAD (coronary artery disease) History of kidney stones Hyperlipidemia Aortic stenosis HTN (hypertension) Surgical History S/P CABG x 3 S/P AVR History of appendectomy History of hernia surgery Family History Father CVD (cardiovascular disease) Mother CVD (cardiovascular disease) Social History Housing: House Alcohol intake: current Alcohol intake frequency: holidays/special occasions only Patient Tobacco Use Status: Never used Tobacco e-Cigarette/Vaping Use: Never Used Second Hand Smoke Exposure: No service: No Current occupational status: employed Cognitive needs: No Hearing needs: No Vision needs: Yes (reading glasses) Review of Systems Const Denies weakness ENT Denies dizziness Card Details: dizziness Denies chest pain, Denies chest pain with activity, Denies syncope, Denies rapid heart rate, Denies pedal edema, Denies edema, Denies leg edema, Denies lightheadedness, Denies palpitations, Denies dyspnea, Denies dyspnea on exertion and Denies orthopnea Resp Denies cough, Denies dyspnea and Denies dyspnea on exertion GI Denies hematochezia and Denies change in stool character Musc Denies abnormal gait, Denies muscle cramps, Denies muscle weakness, Denies numbness, Denies radiating pain into limb and Denies tingling Neuro Denies abnormal gait, Denies dizziness, Denies syncope, Denies numbness, Denies tingling and Denies weakness Endo Denies palpitations Physical Exam Vital Signs: Last Vital Signs Pulse 66 10/19/23 08:49 BP 112/72 10/19/23 08:49 BMI result Body Mass Index 33.2 Const General: cooperative, comfortable, no acute distress, alert, awake and anxious Nutritional Appearance: overweight Orientation/consciousness: patient oriented x3 Limitations: no limitations HEENT Head: Yes normocephalic and Yes atraumatic Neck Neck: Yes trachea midline, Yes supple and Yes no JVD Chest Chest palpation & inspection: normal inspection of the chest and other (Well-healed sternotomy scar) Resp Effort & Inspection: normal respiratory effort Auscultation: clear to auscultation bilaterally Cardio Jugular venous distension: no JVD Palpation: normal PMI Rate: regular rate Rhythm: regular rhythm Heart sounds: S1 normal heart sound present, S2 normal heart sound present and Murmur heart sound present systolic early and soft GI Inspection: Yes normal to inspection Skin General skin exam: no rashes or lesions noted Neuro General: patient oriented x3 and no focal motor deficits Extrem General: Yes no clubbing, cyanosis or edema Psych Appearance: grossly normal Office Procedures EKG Details: EKGs showing normal sinus rhythm with rightward axis with QS pattern in lead V1 V2 with diffuse ST T wave changes suggestive of repolarization abnormality suggestion of LVH [id number], Complete Assessment & Plan Assessment & Plan (1) CAD (coronary artery disease): Code(s): I25.10 - Atherosclerotic heart disease of [place] coronary artery without angina pectoris Plan: CAD status post coronary artery bypass grafting with no symptoms. His symptoms of dizziness unexplained. His Holter monitor and carotid duplex last year within normal limits. Could be orthostatic lightheadedness. At this point time there is no major clinical role for metoprolol therapy. Have advised him to taper and discontinue metoprolol therapy. Advised to monitor blood pressure at home. Also advised to increase his water intake. Orthostatic precautions were discussed. If he continues to have symptoms, consultation with Neurology should be considered. Continue lifelong aspirin therapy. Continue current statin therapy. Follow-up lipid panel in 3 months time. Advised to modify diet especially food with high glycemic index to see if triglycerides would improve. If triglycerides does not improve and will probably add fenofibrate therapy to his regimen. (2) S/P AVR: Comment: 23 mm bioprosthetic aortic valve concomitant with coronary artery bypass grafting for moderate aortic stenosis Code(s): Z95.2 - Presence of prosthetic heart valve Plan: Prior aortic valve replacement at time of coronary bypass grafting. Doing well clinically. Continue aggressive vascular risk factor modifications above. Continue aspirin therapy. SBE prophylaxis as per ACC/aha guidelines. Follow-up echocardiogram near future. He is encouraged to continue to participate in heart healthy lifestyle. Will follow up in the clinic in 1 year's time, sooner p.r.n.. Thank you for allowing me to partake in his care Orders: Orders Lipid Panel 3 Months I25.10 - Atherosclerotic heart disease of [place] coronary artery without angina pectoris CA echo transthoracic complete Today Z95.2 - Presence of prosthetic heart valve Medications: Discontinued metoprolol tartrate Discontinued Reason: Doctor's Order 25 mg PO BID 90 days 180 tabs 3RF Coding Level of Care Code Est Pt Level 4 (98891) Diagnoses CAD (coronary artery disease) I25.10 S/P AVR Z95.2 CPT Codes EKG - CPT: 11666-[id number], Complete ([id number])
[2023-10-19 08:49] VITALS: BP 112/72; PULSE 66; BMI 33.2
== END 2023-10-19 09:16 | disposition home or self-care (01) ==
PROVIDERS: PCP Internal Medicine; Visit Provider Internal Medicine Cardiovascular Disease
DX: I25.10 Atherosclerotic heart disease of native coronary artery without angina pectoris (principal); Z95.2 Presence of prosthetic heart valve
CPT/HCPCS: 93010; 99214

== ENCOUNTER → 2023-10-19 08:37 | Outpatient (BNVA) | payer OTHER, SELFPAY ==
[2023-04-10 09:05] VITALS: BP 122/62; BP 122/68; BMI 32.9
== END ==
PROVIDERS: PCP Internal Medicine; Visit Provider Internal Medicine Cardiovascular Disease
DX: I25.10 Atherosclerotic heart disease of native coronary artery without angina pectoris (principal); Z95.2 Presence of prosthetic heart valve; Z79.82 Long term (current) use of aspirin; Z79.899 Other long term (current) drug therapy
CPT/HCPCS: 93005

== ENCOUNTER 2024-12-26 15:32 | Outpatient (AMB) | payer OTHER, SELFPAY ==
[2023-04-10 09:05] VITALS: BP 122/62; BP 122/68; BMI 32.9
--- NOTE | 2024-12-26 15:35 | A.OFFVIS_ITS ---
Vital Signs 12/26/24 15:36 Height 5 ft 9 in Weight 218 lb 4.122 oz BMI 32.2 BP 152/84 H Blood Pressure Location Lt brachial Position Sitting Pulse 93 Intake Visit Reasons: r/s 10/28/24/12/19 1 yr followup w/ekg Intake Note: 1 year follow-up with ekg feeling good Professor Of Voice Required: No Allergies No Known Allergies Allergy (Verified 04/10/23 08:51) Medication List - Last Reconciled 12/26/24 by Yan Aldana MD aspirin 81 mg PO DAILY atorvastatin 40 mg PO BEDTIME bempedoic acid (Nexletol) 180 mg PO DAILY HPI Comments Details: Mamadou comes for follow-up. Overall he has been doing well. Denies any exertional symptoms. Denies any exertional chest pain or shortness of breath. He says blood pressures been running 140-145 at home. Denies any prolonged palpitation irregular heartbeat. Denies any orthopnea, PND, leg edema. Takes all his medications. Has not been to a dentist for some time. [facility] Medical History CAD (coronary artery disease) History of kidney stones Hyperlipidemia Aortic stenosis HTN (hypertension) Surgical History S/P CABG x 3 S/P AVR History of appendectomy History of hernia surgery Family History Father CVD (cardiovascular disease) Mother CVD (cardiovascular disease) Social History Housing: House Alcohol intake: current Alcohol intake frequency: holidays/special occasions only Patient Tobacco Use Status: Never used Tobacco e-Cigarette/Vaping Use: Never Used Second Hand Smoke Exposure: No service: No Current occupational status: employed Cognitive needs: No Hearing needs: No Vision needs: Yes (reading glasses) Review of Systems Const Denies chills, Denies fatigue, Denies fever(s), Denies frequent falls, Denies weakness, Denies weight gain and Denies weight loss ENT Denies dizziness Card Denies chest pain, Denies leg edema, Denies lightheadedness, Denies palpitations, Denies dyspnea, Denies dyspnea on exertion, Denies orthopnea and Denies other (loss of consciousness) Resp Denies cough, Denies dyspnea and Denies dyspnea on exertion GI Denies hematochezia and Denies change in stool character Musc Denies abnormal gait, Denies muscle weakness, Denies numbness, Denies radiating pain into limb and Denies tingling Neuro Denies abnormal gait, Denies dizziness, Denies frequent falls, Denies numbness, Denies tingling and Denies weakness Endo Denies fatigue and Denies palpitations Physical Exam Vital Signs: BMI result Body Mass Index 32.2 Const General: cooperative, comfortable, no acute distress, alert, awake and anxious Nutritional Appearance: overweight Orientation/consciousness: patient oriented x3 Limitations: no limitations HEENT Head: Yes normocephalic and Yes atraumatic Neck Neck: Yes trachea midline, Yes supple and Yes no JVD Chest Chest palpation & inspection: normal inspection of the chest and other (Well- healed sternotomy scar) Resp Effort & Inspection: normal respiratory effort Auscultation: clear to auscultation bilaterally Cardio Jugular venous distension: no JVD Palpation: normal PMI Rate: regular rate Rhythm: regular rhythm Heart sounds: S1 normal heart sound present, S2 normal heart sound present and Murmur heart sound present systolic early and soft GI Inspection: Yes normal to inspection Skin General skin exam: no rashes or lesions noted Neuro General: patient oriented x3 and no focal motor deficits Extrem General: Yes no clubbing, cyanosis or edema Psych Appearance: grossly normal Office Procedures EKG Details: EKG shows normal sinus rhythm with rightward axis with suggestion of LVH with repolarization abnormality with small Q-waves in lead 3 [id number], Complete Assessment & Plan Assessment & Plan (1) CAD (coronary artery disease): Code(s): I25.10 - Atherosclerotic heart disease of [place] coronary artery without angina pectoris Category: Medical Plan: CAD status post coronary artery bypass grafting with no recurrent symptoms of angina at current point time. Continue aggressive risk factor modification. Low-dose aspirin therapy for life. Continue dual therapy with atorvastatin and bempedoic acid. Advised lipid panel in near future. Target goal LDL less than 60 mg/dL. Needs better blood pressure control. Recommend low-dose amlodipine therapy 2.5 mg daily. Stress mitigation strategies was discussed. Low-salt diet was discussed. Advised to monitor blood pressure at home and maintain a log and give me a call in about a month's time to see if he requires further uptitration medications. Management was discussed he understands agrees. (2) S/P AVR: Comment: 23 mm bioprosthetic aortic valve concomitant with coronary artery bypass grafting for moderate aortic stenosis Code(s): Z95.2 - Presence of prosthetic heart valve Category: Surgical Plan: Status post aortic valve replacement with no recent echocardiogram. Recommend echocardiogram near future to assess for valve function. Continue low-dose aspirin therapy. Continue aggressive risk factor modifications above. SBE prophylaxis as per ACC/aha guidelines. Follow up in the clinic in 1 year's time, sooner p.r.n.. Thank you for allowing me to partake in his care Orders: Orders CA echo transthoracic complete Today Z95.2 - Presence of prosthetic heart valve Lipid Panel Today I25.10 - Atherosclerotic heart disease of [place] coronary artery without angina pectoris Medications: New amlodipine 2.5 mg PO DAILY 30 tabs 3RF Z95.2 - Presence of prosthetic heart valve Coding Level of Care Code Est Pt Level 4 (01250) Complex EM visit Add On G2211 Diagnoses CAD (coronary artery disease) I25.10 S/P AVR Z95.2 CPT Codes EKG - CPT: 37102-[id number], Complete ([id number])
[2024-12-26 15:36] VITALS: BP 152/84; PULSE 93; BMI 32.2
--- OUTSIDE RECORDS SUMMARY | 2024-12-26 16:04 | XMS_ITS | Referral Summary ---
Author Organization [facility] Address [address] [place] [address] Care Team Providers Care Refrigeration Person Name Role Phone Patient, Has No Pcp Or Ref Primary Care Provider Unavailable Allergies No known active allergies Medications carvediloL (COREG) 3.125 mg tablet Take 1 tablet (3.125 mg total) by mouth 2 (two) times a day. 60 tablet 1 11/07/2020 Active atorvastatin (LIPITOR) 20 mg tablet Take 1 tablet (20 mg total) by mouth nightly. 30 tablet 1 11/07/2020 Active aspirin 81 mg EC tablet Take 1 tablet (81 mg total) by mouth daily. Patient can take OTC alternatives . 30 tablet 1 11/08/2020 Active amLODIPine (NORVASC) 2.5 mg tablet Take 1 tablet (2.5 mg total) by mouth daily. 30 tablet 1 11/08/2020 Active Active Problems Problem Noted Date Diagnosed Date Mild aortic stenosis 11/06/2020 Assessment & Plan (11/06/2020 2:39 PM EDT): Patient has a systolic murmur on exam. He reports no known previous history of murmur. -Follow up ECHO. Assessment & Plan (11/06/2020 6:14 AM EDT): Patient has a systolic murmur on exam. He reports no known previous history of murmur. -TTE ordered Mixed hyperlipidemia 11/06/2020 Assessment & Plan (11/06/2020 2:40 PM EDT): -Lipid panel showed mixed hyperlipidemia. I discussed with the patient about potential benefit/risks of statin treatment. He is agreeable to proceed. LFTs normal. Will start patient on atorvastatin 20mg at bedtime. Lipids Latest Ref Rng & Units 11/06/2020 CHOLESTEROL <200 mg/dL 310(H) TRIGLYCERIDES <150 mg/dL 129 HDL 40 - 59 mg/dL 60(H) LDL <100 mg/dL 224(H) Disorder of maxillary sinus 11/06/2020 Assessment & Plan (11/06/2020 2:43 PM EDT): -MRI of brain showed inflammatory changes of the right maxillary sinus. Patient does have chronic hearing loss on the left ear. He denies any acute symptoms. No fever or nasal discharge. Denies tender by palpation. Will hold off antibiotics treatment. -Outpatient referral to ENT doctor by his primary care physician. He declined a referral to [facility] ENT clinic. Hypertensive urgency 11/05/2020 Assessment & Plan (11/06/2020 2:46 PM EDT): Patient with a history of untreated hypertension presented with disequilibrium/flushing episodes and episodes of vision changes. Blood pressure was elevated at 220/112. EKG revealed evidence of LVH; no ST elevations or depressions. Troponin negative. Denies chest pain. Patient received small doses of IV labetalol and oral labetalol. Received lisinopril 10mg. His blood pressure much improved. -I discussed with the patient and extensively about anti-HTN medications and potential benefit/side effects. Will start patient on amlodipine 2.5mg daily and coreg 3.125mg twice daily. -The patient is setting up to see a primary care physician. He should discuss with his primary care physician about workup for potential secondary HTN. -Urine vanillylmandelic acid ordered by the ED physician as there was initial concern for pheochromocytoma; results pending. -Monitor BP. -Follow up ECHO. Assessment & Plan (11/06/2020 6:17 AM EDT): Patient with a history of untreated hypertension presented with disequilibrium/flushing episodes and one episode of vision changes. Blood pressure was elevated at 220/112. Concern for possible PRESS syndrome vs TIA/stroke. EKG revealed evidence of LVH; no ST elevations or depressions. Troponin negative. Patient received 2.5 mg of IV labetalol x2 and oral labetalol 50 mg once while in the emergency department to good effect. -Start lisinopril 10 mg p.o. daily -Urine vanillylmandelic acid ordered by the ED physician as there was initial concern for pheochromocytoma; results pending -Monitor BP Transient ischemic attack 11/05/2020 Assessment & Plan (11/06/2020 2:39 PM EDT): Patient with an episode of vision changes and disequilibrium 2 days prior to presentation, followed by 3 episodes of disequilibrium with nausea and flushing on the day of presentation. Patient symptoms were concerning for TIA. -CT of head without contrast showed No acute intracranial abnormality . -MRI showed No focal brain parenchymal abnormality. Inflammatory changes of the right maxillary sinus . MRA of head showed No large vessel occlusion, hemodynamically significant stenosis, aneurysm or AV malformation of the major intracranial arteries . -The patient denies history of bleeding disorder or GI bleed. He is started on aspirin 81mg daily and atorvastatin 20mg at bedtime. -Follow up hemoglobin A1c. -Follow up with neurology as outpatient. Patient is establishing care with a primary care physician locally and prefers to keep his care at his local area. He should discuss with his PCP to ask for a referral to neurology as outpatient. Assessment & Plan (11/06/2020 6:10 AM EDT): Patient with an episode of vision changes and disequilibrium 2 days prior to presentation, followed by 3 episodes of disequilibrium with nausea and flushing on the day of presentation. Patient symptoms concerning for TIA. Differential also includes PRESS syndrome, as patient's blood pressure was very elevated. Patient is currently asymptomatic. -CT head ordered stat -MRI of the brain and MRA -Telemetry monitoring -TTE -Lipid panel, A1c Hypertension 11/05/2020 Social History Tobacco Use Types Packs/Day Years Used Date Smoking Tobacco: Never Smokeless Tobacco: Never Alcohol Use Standard Drinks/Week Comments Not Currently 0 (1 standard drink = 0.6 oz pur e alcohol) Sex and Gender Information Value Date Recorded Sex Assigned at Not on file Legal Sex Male 12:35 PM EDT Gender Identity Not on file Sexual Orientation Not on file Last Filed Vital Signs Vital Sign Reading Time Taken Comments Blood Pressure 128/94 11/07/2020 10:21 AM EDT Pulse 88 11/07/2020 10:21 AM EDT Temperature 37 ??C (98.6 ??F) 11/07/2020 10: 21 AM EDT Respiratory Rate 18 11/07/2020 10:2 1 AM EDT Oxygen Saturation 97% 11/07/2020 10: 21 AM EDT Inhaled Oxygen Concentration - - Weight 96.5 kg (212 lb 12.8 oz) 021 10:09 AM EDT Height 180.3 cm (5' 11 ) 11/06/2020 11: 53 AM EDT Body Mass Index 29.68 11/06/2020 11:53 AM EDT Plan of Treatment Not on file Procedures * Due to [place] Double the Donation law, this organization might not be sharing negative HIV tests. Procedure Name Priority Date/Time Associated Diagnosis Comments BASIC METABOLIC PANEL Timed 11/07/2020 6:47 AM EDT HEPATITIS C ANTIBODY W/REFLEX TO HCV RNA, QUANTITATIVE PCR STAT 11/05/2020 1:59 PM EDT from Last 3 Months or Most Recently Relevant to Health Maintenance Results * Due to [place] Double the Donation law, this organization might not be sharing negative HIV tests. * (ABNORMAL) Basic metabolic panel (11/07/2020 6:47 AM EDT) NA 136 135 - 145 mmol/L 11/07/2020 7:35 AM EDT [facility] K 3.9 3.5 - 5.3 mmol/L 11/07/2020 7:35 AM EDT [facility] Cl 103 97 - 110 mmol/L 11/07/2020 7:35 AM EDT [facility] CO2 25 24 - 32 mmol/L 11/07/2020 7:35 AM EDT [facility] BUN 21 7 - 23 mg/dL 11/07/2020 7:35 AM EDT [facility] Creatinine 0.99 0.60 - 1.30 mg/dL 11/07/2020 7:35 AM EDT [facility] Glucose 119(H) 70 - 99 mg/dL 11/07/2020 7:35 AM EDT [facility] Calcium 9.4 8.7 - 10.7 mg/dL 11/07/2020 7:35 AM EDT [facility] Anion Gap 8 5 - 15 11/07/2020 7:35 AM EDT [facility] eGFR Non- 83(L) >=90 mL/min/BS A 11/07/2020 7:35 AM EDT [facility] eGFR >90 >=90 mL/min/BS A 11/07/2020 7:35 AM EDT [facility] Comment: Units = mL/min/1.73 m2 Glomerular Filtration Rate (GFR) is estimated based on the CKD-EPI Creatinine Equation (2009). Stage ?Description ? GFR 1 ? Normal ? >=90 mL/min/BSA 2 ? Mildly decreased GFR ? 60-89 mL/min/BSA 3 ? Moderately decreased GFR ? 30-59 mL/min/BSA 4 ? Severely decreased GFR ? 15-29 mL/min/BSA 5 ? Kidney Failure ? <15 mL/min/BSA Blood Structure of peripheral vein / Unknown Venipuncture / Unknown 11/07/2020 6:47 AM EDT 11/07/2020 7:04 AM EDT us Laura Patel MD PhD LAB BLOOD ORDERABLES Final Resu lt [facility] [address] [place] [address], [place] * Hepatitis C Antibody w/Reflex to HCV RNA, Quantitative PCR (11/05/2020 1:59 PM EDT) Hepatitis C Antibody NON-REACT JAYME NON-REACT JAYME 11/06/2020 2:21 AM EDT [facility] [employer] Signal To Cut-Off 0.01 <1.00 11/06/2020 2:21 AM EDT [facility] Comment: HCV antibody was non-reactive. There is no laboratory evidence of HCV infection. In most cases, no further action is required. However, if recent HCV exposure is suspected, a test for HCV RNA (test code 42543) is suggested. For additional information please refer to http://education.Alminder/faq/EDO15j4 (This link is being provided for informational/ educational purposes only.) Blood Structure of peripheral vein / Unknown Venipuncture / Unknown 11/05/2020 1:59 PM EDT 11/05/2020 2:12 PM EDT Narrative [facility] - 11/06/2020 2:21 AM EDT [facility] Received Date: Gerry Recio MD LAB BLOOD ORDERABLES Final R esult Performing Organization Address City/[facility]/ZIP Co de Phone Number NAMITA SANZ [address] [facility] [address], [place] [address], [place] [phone] [facility] [employer] [address] [facility] [address], [place] [address], [place] [phone] from Last 3 Months or Most Recently Relevant to Health Maintenance Insurance [employer] Advance Directives Documents on File Type Date Recorded Patient Food And Nutrition Teacher Expl anation Health Care Proxy 11/06/2020 3:00 PM 11-05 * Full Code (Latest Code Status on File) Date Activated Date Inactivated Comments 11/05/2020 11:38 PM 11/07/2020 5:01 PM Healthcare Agents on File Name Relationship Healthcare Agent Relationshi p Communication Vivi Bran Spouse Health Care Agent Mony Balbuena Daughter [facility] Care Teams Refrigeration Person Relationship Specialty Start Date End Date Patient, Has No Pcp Or Ref DO NOT EDIT THIS RECORD VIA PROVIDER ON THE FLY PCP - General Dental Service Chief 11/05/20
--- OUTSIDE RECORDS SUMMARY | 2024-12-26 16:04 | XMS_ITS | Clinical Summary ---
Author Organization [facility] Address [address] [place] [address] Care Team Providers Care Pet Caretaker Name Role Phone Patient, Has No Pcp [...] care physician. He declined a referral to [facility] ENT clinic. Hypertensive urgency 11/05/2020 Assessment & [...] monitoring -TTE -Lipid panel, A1c Hypertension 11/05/2020 Family History Medical History Relation Name Comments Stroke Paternal Grandmother Relation Name Status Comments Paternal Grandmother Social History Tobacco Use Types Packs/Day Years [...] 11/06/2020 11:53 AM EDT Plan of Treatment Health Maintenance Due Date Last Done Comments Cologuard 1961 Colon Cancer Screening 1961 Colonoscopy 1961 FOBT / Fit Test 1961 HIV Screening 1961 Sigmoidoscopy 1961 DTaP,Tdap,and Td Vaccines (1 - Tdap) 1983 Pneumococcal Vaccine: 50+ Years (1 of 1 - PCV) 2011 Zoster Vaccines (1 of 2) 2011 RSV Vaccine (60+ years old a nd patients) (1 - Risk 60-74 years 1-dose series) 2021 Basic Metabolic Panel 11/07/2021 11/07/2020 , 11/06/2020, 11/05/2020 COVID-19 Vaccine (1 - 2023-2 5 season) 2024 Alcohol/Substance Use Screening 08/21/2024 Depression Screening and Follow-Up 08/21/2024 Social Drivers of Health Annual Screening 08/21/2024 Influenza Vaccine (Season Ended) 2025 Hepatitis C Screening Completed 11/05/2020 Hepatitis B Vaccines Aged Out No long er eligible based on patient's age to complete this topic Procedures * Due to [place] state law, this organization might not be sharing negative HIV tests. Procedure Name Priority Date/Time Associated Diagnosis Comments BASIC METABOLIC PANEL Timed 11/07/2020 6:47 AM EDT HEPATITIS C ANTIBODY W/REFLEX TO HCV RNA, QUANTITATIVE PCR STAT 11/05/2020 1:59 PM EDT from Last 3 Months or Most Recently Relevant to Health Maintenance Results * Due to [place] state law, this organization might not be sharing negative HIV tests. * (ABNORMAL) Basic metabolic panel (11/07/2020 6:47 AM EDT) NA 136 135 - 145 mmol/L 11/07/2020 7:35 AM EDT [facility] K 3.9 3.5 - 5.3 mmol/L 11/07/2020 7:35 AM EDT [facility] Cl 103 97 - 110 mmol/L 11/07/2020 7:35 AM EDT [facility] CO2 25 24 - 32 mmol/L 11/07/2020 7:35 AM EDT [facility] BUN 21 7 - 23 mg/dL 11/07/2020 7:35 AM EDT [facility] Creatinine 0.99 0.60 - 1.30 mg/dL 11/07/2020 7:35 AM EDT [facility] Glucose 119(H) 70 - 99 mg/dL 11/07/2020 7:35 AM EDT [facility] Calcium 9.4 8.7 - 10.7 mg/dL 11/07/2020 7:35 AM EDT [facility] Anion Gap 8 5 - 15 11/07/2020 7:35 AM EDT [facility] eGFR Non- 83(L) >=90 mL/min/BS A 11/07/2020 7:35 AM EDT [facility] eGFR >90 >=90 mL/min/BS A 11/07/2020 7:35 AM EDT [facility] Comment: Units = mL/min/1.73 [...] PhD LAB BLOOD ORDERABLES Final Resu lt [facility] [address] [place] [address], * Hepatitis C Antibody w/Reflex to HCV RNA, Quantitative PCR (11/05/2020 1:59 PM EDT) Hepatitis C Antibody NON-REACT JAYME NON-REACT JAYME 11/06/2020 2:21 AM EDT [facility] Signal To Cut-Off 0.01 <1.00 11/06/2020 2:21 AM EDT [facility] Comment: HCV antibody was non-reactive. There is no laboratory evidence of HCV infection. In most cases, no further action is required. However, if recent HCV exposure is suspected, a test for HCV RNA (test code 79173) is suggested. For additional information please refer to http://education.Promethean/faq/UAR40w4 (This link is being provided for informational/ educational purposes only.) Blood Structure of peripheral vein / Unknown Venipuncture / Unknown 11/05/2020 1:59 PM EDT 11/05/2020 2:12 PM EDT Narrative NAMITA SANZ - 11/06/2020 2:21 AM EDT [facility] Received Date: Gerry Recio MD LAB BLOOD ORDERABLES Final R esult [facility] [address] [facility] [address], [place] [address], [place] [phone] [facility] [address] [facility] [address], [place] [address], from Last 3 Months or Most Recently Relevant to Health Maintenance Insurance [facility] [employer] Advance Directives Documents on File Type Date Recorded Patient Paint Spray Tender Expl anation Health Care Proxy 11/06/2020 3:00 PM 11-05 * Full Code (Latest Code Status on File) Date Activated Date Inactivated Comments 11/05/2020 11:38 PM 11/07/2020 5:01 PM Healthcare Agents on File Name Relationship Healthcare Agent Relationshi p Communication Vivi Bran Spouse Health Care Agent Mony Balbuena Daughter [facility] Care Teams Pet Caretaker Relationship Specialty Start Date End Date Patient, Has No Pcp Or Ref DO NOT EDIT THIS RECORD VIA PROVIDER ON THE FLY PCP - General Area Forester 11/05/20
== END 2024-12-26 15:56 | disposition home or self-care (01) ==
LOC: HO.HCS 15:35
PROVIDERS: PCP Internal Medicine; Visit Provider Internal Medicine Cardiovascular Disease
DX: I25.10 Atherosclerotic heart disease of native coronary artery without angina pectoris (principal); Z95.2 Presence of prosthetic heart valve
CPT/HCPCS: 93010; 99214

== ENCOUNTER → 2024-12-26 15:32 | Outpatient (BNVA) | payer OTHER, SELFPAY ==
[2023-04-10 09:05] VITALS: BP 122/62; BP 122/68; BMI 32.9
== END ==
PROVIDERS: PCP Internal Medicine; Visit Provider Internal Medicine Cardiovascular Disease
DX: I25.10 Atherosclerotic heart disease of native coronary artery without angina pectoris (principal); Z95.2 Presence of prosthetic heart valve; Z79.82 Long term (current) use of aspirin; Z79.899 Other long term (current) drug therapy
CPT/HCPCS: 93005

== ENCOUNTER 2025-02-20 08:06 | Outpatient (REF) | payer OTHER, SELFPAY ==
[2023-04-10 09:05] VITALS: BP 122/62; BP 122/68; BMI 32.9
--- OUTSIDE RECORDS SUMMARY | 2025-02-20 08:09 | XMS_ITS | Encounter Summary ---
Author Organization [facility] Address [address] [place] [address] Care Team Providers Care Abe Teacher Name Role Phone Patient, Has No Pcp Or Ref Primary Care Provider Unavailable Encounter Details Date Type Department Care Team (Late st Contact Info) Description 02/15/2025 Telephone [facility] Nuclear Medicine [address] [place] [phone] Gunjan Doe RN Social History Tobacco Use Types Packs/Day Years Used Date Smoking Tobacco: Never Smokeless Tobacco: Never Alcohol Use Standard Drinks/Week Comments Not Currently 0 (1 standard drink = 0.6 oz pur e alcohol) Sex and Gender Information Value Date Recorded Sex Assigned at Male 02/14/2025 3:29 PM EDT Legal Sex Male 12:35 PM EDT Gender Identity Not on file Sexual Orientation Not on file documented as of this encounter Plan of Treatment Not on file documented as of this encounter Visit Diagnoses Not on filedocumented in this encounter Care Teams Abe Teacher Relationship Specialty Start Date End Date Patient, Has No Pcp Or Ref DO NOT EDIT THIS RECORD VIA PROVIDER ON THE FLY PCP - General Director Of Teaching And Learning 11/05/20 documented as of this encounter
[2025-02-20 09:26] LABS: Cholesterol 141 mg/dL (<200); HDL Cholesterol 48 mg/dL (>40); Triglycerides 82 mg/dL (<150)
== END 2025-02-20 08:07 | disposition home or self-care (01) ==
LOC: HO.LAB 08:06
PROVIDERS: Visit Provider Internal Medicine Cardiovascular Disease
DX: I25.10 Atherosclerotic heart disease of native coronary artery without angina pectoris (principal)
CPT/HCPCS: 36415; 80061

== ENCOUNTER 2025-02-20 08:28 | Outpatient (AMB) | payer OTHER, SELFPAY ==
[2023-04-10 09:05] VITALS: BP 122/62; BP 122/68; BMI 32.9
[2025-02-20 08:31] VITALS: BP 152/90; PULSE 85; BMI 32.0
--- NOTE | 2025-02-20 08:31 | MHC.OFFVIS ---
Vital Signs 02/20/25 08:31 Height 5 ft 9 in Weight 216 lb 14.958 oz BMI 32.0 BP 152/90 H Blood Pressure Location Lt brachial Position Sitting Pulse 85 Pulse Source Pulse Oximeter Intake Visit Reasons: [facility] Industrial Machine Assembler Required: No Court Reporter: Court Reporter Present Allergies No Known Allergies Allergy (Verified 02/20/25 08:35) Medication List - Last Reconciled 02/20/25 by Viki Potter NP-Kemar amlodipine 5 mg PO DAILY aspirin 81 mg PO DAILY atorvastatin 40 mg PO BEDTIME HPI HPI [facility]: Details: Mamadou is a 64-year-old male with past medical history of hypertension, hyperlipidemia, obesity, aortic stenosis, coronary artery disease status post coronary artery bypass grafting 04/2022 with TOMPKINS to LAD, SVG to PDA and D2, bioprosthetic AVR who was recently admitted to [facility] for episode of lightheadedness at work. He was treated for hypertension and did undergo a nuclear stress test and echocardiogram which did showed abnormalities and he now presents for follow-up. Today he reports he has not had recurrent lightheadedness since the episode at work. He says he has had this periodically and believes he may have some vertigo. His most recent episode was more symptomatic and his co-worker called EMS for evaluation. He tells me when EMS arrived his blood pressure was 224/180. He was brought to [facility] for evaluation and upon discharge they increased his amlodipine from 2.5 up to 5 mg daily. No presyncope, syncope, falls. No chest discomfort at rest or with activity. No shortness of breath, PND, orthopnea or edema. Taking all meds as directed. is present. [facility] Medical History (Updated 02/20/25 @ 11:41 by Viki Potter, BENITA-C) CAD (coronary artery disease) History of kidney stones Hyperlipidemia Aortic stenosis HTN (hypertension) Surgical History (Updated 02/20/25 @ 11:40 by RICARDO MejiaC) S/P CABG x 3 S/P AVR History of appendectomy History of hernia surgery Family History Father CVD (cardiovascular disease) Mother CVD (cardiovascular disease) Social History Housing: House Alcohol intake: current Alcohol intake frequency: holidays/special occasions only Patient Tobacco Use Status: Never used Tobacco e-Cigarette/Vaping Use: Never Used Second Hand Smoke Exposure: No service: No Current occupational status: employed Cognitive needs: No Hearing needs: No Vision needs: Yes (reading glasses) Review of Systems Const All systems reviewed & are unremarkable except as noted in HPI and below ENT Reports dizziness Card Denies chest pain, Denies chest pain at rest, Denies chest pain with activity, Denies rapid heart rate, Denies pedal edema, Denies edema, Denies leg edema, Denies lightheadedness, Denies palpitations, Denies dyspnea, Denies dyspnea on exertion and Denies orthopnea Resp Denies cough, Denies dyspnea and Denies dyspnea on exertion GI Denies hematochezia and Denies change in stool character Musc Denies abnormal gait, Denies limited range of motion, Denies muscle cramps, Denies muscle weakness, Denies numbness, Denies radiating pain into limb, Denies stiffness and Denies tingling Neuro Denies abnormal gait, Reports dizziness, Denies numbness and Denies tingling Endo Denies palpitations Physical Exam Vital Signs: Last Vital Signs Pulse 85 02/20/25 08:31 BP 152/90 H 02/20/25 08:31 BMI result Body Mass Index 32.0 Const General: cooperative, healthy appearing, comfortable and no acute distress Orientation/consciousness: patient oriented x3 Neck Neck: Yes normal visual inspection and Yes no JVD Carotids: normal carotid upstroke Resp Effort & Inspection: normal respiratory effort Auscultation: clear to auscultation bilaterally, no crackles, no rales, no rhonchi and no wheezes Cardio Jugular venous distension: no JVD Rate: regular rate Rhythm: regular rhythm Heart sounds: S1 normal heart sound present, S2 normal heart sound present, no gallops, no murmurs and no rubs Neuro General: patient oriented x3 Extrem General: Yes normal to inspection, No no pedal edema and No calf tenderness Psych Appearance: grossly normal Mental Status: mental status grossly normal Speech and movement: Normal speech and movement present Assessment & Plan Assessment & Plan (1) Dizziness: Code(s): R42 - Dizziness and giddiness Category: Medical Plan: Episode of dizziness with [facility] evaluation and finding of elevated blood pressure. His amlodipine was increased from 2.5 up to 5 mg daily. He did have cardiac testing and according to the discharge summary it states nuclear stress test showed moderate area at risk for ischemia in the left circumflex area with some degree of scar or infarct. It also states echocardiogram with normal EF and possible apical ischemia. Will reach out to [facility] to get actual reports of these tests. He currently has no anginal symptoms. Will continue to work on optimizing his blood pressure. Home readings are mildly elevated. Will increase amlodipine up to 10 mg daily. Cardiology follow-up 1 month, sooner if needed. (2) HTN (hypertension): Code(s): I10 - Essential (primary) hypertension Category: Medical Plan: Blood pressure goal less than 130/80. Blood pressure readings have been elevated. Blood pressure today 142/90. Increasing amlodipine. Reviewed low-salt diet. (3) S/P AVR: Comment: 23 mm bioprosthetic aortic valve concomitant with coronary artery bypass grafting for moderate aortic stenosis Code(s): Z95.2 - Presence of prosthetic heart valve Category: Surgical Plan: of moderate aortic stenosis status post bioprosthetic AVR 04/2022. No murmur noted on exam. Obtaining most recent echocardiogram from [facility] for review. (4) CAD (coronary artery disease): Code(s): I25.10 - Atherosclerotic heart disease of [place] coronary artery without angina pectoris Category: Medical Plan: History of CAD with coronary artery bypass grafting: Tompkins to LAD, SVG to PDA and D2, 04/2022. Nuclear stress test done at [facility] with report of possible left circumflex territory ischemia. Reaching out to obtain the actual full report for review. He has no anginal symptoms. At this time continue atorvastatin with LDL goal less than 70. Continue aspirin indefinitely. Increasing amlodipine. (5) Hyperlipidemia: Code(s): E78.5 - Hyperlipidemia, unspecified Category: Medical Plan: LDL goal less than 70. Labs done today, LDL 77. Will have him increase atorvastatin up to 80 mg daily. (6) S/P CABG x 3: Comment: TOMPKINS to LAD, SVG to PDA and D2, April 2022 Code(s): Z95.1 - Presence of aortocoronary bypass graft Category: Surgical (7) Hospital discharge follow-up: Code(s): Z09 - Encounter for follow-up examination after completed treatment for conditions other than malignant neoplasm Category: Medical Plan: [facility] Medical notes reviewed Plan I discussed with the patient the importance of controlling his blood pressure and the potential side effects of increasing amlodipine to 10 mg daily, including possible ankle edema. We reviewed the need for further evaluation of the nuclear stress test and echocardiogram findings to determine any ischemic changes. I advised him to maintain a low-salt diet and to monitor his blood pressure regularly. Medications: New amlodipine dose increased 10 mg PO DAILY 30 tabs 5RF Patient Instructions: - Increase amlodipine to 10 mg daily. - Monitor blood pressure regularly. - Maintain a low-salt diet. - Report any concerning symptoms immediately. - Follow up in one month. Patient was informed and verbally consented to the use of an ambient scribe for clinic note documentation during this visit. Visit time spent on chart review, interview, assessment, orders, documentation. Coding Level of Care Code Est Pt Level 4 (17502) Complex EM visit Add On G2211 Diagnoses Dizziness R42 HTN (hypertension) I10 S/P AVR Z95.2 CAD (coronary artery disease) I25.10 Hyperlipidemia E78.5 S/P CABG x 3 Z95.1 Hospital discharge follow-up Z09 Time Spent (min) 36
== END 2025-02-20 09:21 | disposition home or self-care (01) ==
LOC: HO.HCS 08:29
PROVIDERS: PCP Internal Medicine; Visit Provider Nurse Practitioner Family
DX: R42 Dizziness and giddiness (principal); I10 Essential (primary) hypertension; Z95.2 Presence of prosthetic heart valve; I25.10 Atherosclerotic heart disease of native coronary artery without angina pectoris; E78.5 Hyperlipidemia, unspecified; Z95.1 Presence of aortocoronary bypass graft; Z09 Encounter for follow-up examination after completed treatment for conditions other than malignant neoplasm
CPT/HCPCS: 99214

== ENCOUNTER 2025-04-03 08:05 | Outpatient (AMB) | payer OTHER, SELFPAY ==
[2023-04-10 09:05] VITALS: BP 122/62; BP 122/68; BMI 32.9
--- OUTSIDE RECORDS SUMMARY | 2025-04-03 08:11 | XMS_ITS | Encounter Summary ---
Author Organization [facility] Address [address] [place] [address] Care Team Providers Care Last Cleaner Name Role Phone Patient, Has No Pcp Or Ref Primary Care Provider Unavailable Encounter Details Date Type Department Care Team (Late st Contact Info) Description 02/15/2025 Telephone [facility] Nuclear Medicine [address] [place] [phone] Gunjan Doe RN Social History Tobacco Use [...] on filedocumented in this encounter Care Teams Last Cleaner Relationship Specialty Start Date End Date Patient, Has No Pcp Or Ref DO NOT EDIT THIS RECORD VIA PROVIDER ON THE FLY PCP - General Machine Presser 11/05/20 documented as of this encounter
[2025-04-03 08:15] VITALS: BP 130/72; PULSE 84; BMI 32.1
--- NOTE | 2025-04-03 08:15 | MHC.OFFVIS ---
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 Allergies No Known Allergies Allergy (Verified 04/03/25 08:17) Medication List - Last Reconciled 04/03/25 by Viki Potter, BENITA-C amlodipine 10 mg PO DAILY aspirin 81 mg PO DAILY atorvastatin 40 mg PO BEDTIME carvedilol 3.125 mg PO BID ezetimibe 10 mg PO DAILY HPI HPI 1 mth: Details: Mamadou is a 64-year-old male with past medical history of hypertension, hyperlipidemia, obesity, aortic stenosis, coronary artery disease status post coronary artery bypass grafting 04/2022 with TOMPKINS to LAD, SVG to PDA and D2, bioprosthetic AVR who was recently admitted to [facility] for episode of lightheadedness at work. He was treated for hypertension and did undergo a nuclear stress test and echocardiogram which did showed abnormalities. On Follow-up visit his blood pressure was mildly elevated amlodipine dose was increased. He now presents for follow-up. Today he reports that he has been feeling well since his last visit in early February. His primary complaint is of back and neck discomfort from sitting long periods of time at work. He has been monitoring his blood pressures and brings a log showing systolic ranging typically 117-130s. No recurrent lightheadedness, no presyncope, syncope, falls. No chest discomfort at rest or with activity. No shortness of breath, PND, orthopnea. Has Trace ankle edema. Taking all meds as directed. [facility] Medical History CAD (coronary artery disease) History of kidney stones Hyperlipidemia Aortic stenosis HTN (hypertension) Surgical History S/P CABG x 3 S/P AVR History of appendectomy History of hernia surgery Family History Father CVD (cardiovascular disease) Mother CVD (cardiovascular disease) Social History Housing: House Alcohol intake: current Alcohol intake frequency: holidays/special occasions only Patient Tobacco Use Status: Never used Tobacco e-Cigarette/Vaping Use: Never Used Second Hand Smoke Exposure: No service: No Current occupational status: employed Cognitive needs: No Hearing needs: No Vision needs: Yes (reading glasses) Review of Systems Const All systems reviewed & are unremarkable except as noted in HPI and below ENT Denies dizziness Card Denies chest pain, Denies chest pain at rest, Denies chest pain with activity, Denies rapid heart rate, Denies pedal edema, Denies edema, Denies leg edema, Denies lightheadedness, Denies palpitations, Denies dyspnea, Denies dyspnea on exertion and Denies orthopnea Resp Denies cough, Denies dyspnea and Denies dyspnea on exertion GI Denies hematochezia and Denies change in stool character Musc Denies abnormal gait, Denies limited range of motion, Denies muscle cramps, Denies muscle weakness, Denies numbness, Denies radiating pain into limb, Denies stiffness and Denies tingling Neuro Denies abnormal gait, Denies dizziness, Denies numbness and Denies tingling Endo Denies palpitations Physical Exam Vital Signs: BMI result Body Mass Index 32.1 Const General: cooperative, healthy appearing, comfortable and no acute distress Orientation/consciousness: patient oriented x3 Neck Neck: Yes normal visual inspection Resp Effort & Inspection: normal respiratory effort Auscultation: clear to auscultation bilaterally, no crackles, no rales, no rhonchi and no wheezes Cardio Jugular venous distension: no JVD Rate: regular rate Rhythm: regular rhythm Heart sounds: S1 normal heart sound present, S2 normal heart sound present, no gallops, Murmur heart sound present (faint systolic) and no rubs Neuro General: patient oriented x3 Extrem General: Yes normal to inspection, No no pedal edema and No calf tenderness Psych Appearance: grossly normal Mental Status: mental status grossly normal Speech and movement: Normal speech and movement present Assessment & Plan Assessment & Plan (1) Dizziness: Code(s): R42 - Dizziness and giddiness Category: Medical Plan: Episode of dizziness with [facility] evaluation and finding of elevated blood pressure. His amlodipine was increased and he is now on 10 mg daily as well as carvedilol 3.125 mg b.i.d.. Blood pressure is currently well controlled. Lightheadedness has resolved. He still has cardiac event monitor pending, that was ordered by Dr. Aldana. No med changes made at this time. Cardiology follow-up 4 months, sooner if needed for blood pressure re-evaluation, symptom check and reviewing cardiac event monitor results (2) HTN (hypertension): Code(s): I10 - Essential (primary) hypertension Category: Medical Plan: Blood pressure goal less than 130/80. Well controlled at present. Continue amlodipine and carvedilol. Reviewed low-salt diet. (3) S/P AVR: Comment: 23 mm bioprosthetic aortic valve concomitant with coronary artery bypass grafting for moderate aortic stenosis Code(s): Z95.2 - Presence of prosthetic heart valve Category: Surgical Plan: Echocardiogram from [facility] 02/14/2025 showed EF 55%, moderate aortic valve calcification, no stenosis. (4) CAD (coronary artery disease): Code(s): I25.10 - Atherosclerotic heart disease of [place] coronary artery without angina pectoris Category: Medical Plan: History of CAD with coronary artery bypass grafting: Tompkins to LAD, SVG to PDA and D2, 04/2022. Nuclear stress test done at [facility] 02/14/2025 showing moderate area at risk for ischemia in the left circumflex territory associated with some degree of infarct/scarring, EF 58% with apical lateral akinesis. Currently no anginal symptoms. Will continue with good blood pressure control and risk factor modification. Continue amlodipine and carvedilol. Continue atorvastatin with LDL goal less than 70. Continue aspirin indefinitely. Signs and symptoms of angina reviewed with him. (5) Hyperlipidemia: Code(s): E78.5 - Hyperlipidemia, unspecified Category: Medical Plan: LDL goal less than 70. Labs done today, LDL 77. Will have him increase atorvastatin up to 80 mg daily. Will have him repeat labs prior to next visit. (6) S/P CABG x 3: Comment: TOMPKINS to LAD, SVG to PDA and D2, April 2022 Code(s): Z95.1 - Presence of aortocoronary bypass graft Category: Surgical Plan I discussed with the patient the management of hypertension with carvedilol and amlodipine, emphasizing the importance of regular blood pressure monitoring. We reviewed the back pain management plan, including posture correction and stretching exercises, and the use of Tylenol with a maximum daily dose of 4 g. The patient was informed about the mild leg swelling due to amlodipine and advised that no change in medication is necessary unless symptoms worsen. We also discussed the upcoming 30-day outdoor illuminating engineer, which will provide real-time alerts for arrhythmias, and the importance of follow-up with Dr. Aldana. Patient Instructions: - Continue taking carvedilol and amlodipine as prescribed. - Monitor blood pressure regularly and record readings. - Maintain good posture and use lumbar support to alleviate back pain. - Perform stretching exercises regularly. - Use Tylenol for pain relief, not exceeding 4 g per day. - Report any new symptoms such as chest pain or increased swelling. - Follow up with Dr. Aldana as scheduled. Patient was informed and verbally consented to the use of an ambient scribe for clinic note documentation during this visit. Visit time spent on chart review, interview, assessment, orders, documentation. Coding Level of Care Code Est Pt Level 4 (65168) Complex EM visit Add On G2211 Diagnoses Dizziness R42 HTN (hypertension) I10 S/P AVR Z95.2 CAD (coronary artery disease) I25.10 Hyperlipidemia E78.5 S/P CABG x 3 Z95.1 Time Spent (min) 32
== END 2025-04-03 08:43 | disposition home or self-care (01) ==
LOC: HO.HCS 08:08
PROVIDERS: Visit Provider Nurse Practitioner Family
DX: R42 Dizziness and giddiness (principal); I10 Essential (primary) hypertension; Z95.2 Presence of prosthetic heart valve; I25.10 Atherosclerotic heart disease of native coronary artery without angina pectoris; E78.5 Hyperlipidemia, unspecified; Z95.1 Presence of aortocoronary bypass graft
CPT/HCPCS: 99214

== ENCOUNTER → 2025-04-11 07:59 | Outpatient (REF) | payer OTHER, SELFPAY ==
[2023-04-10 09:05] VITALS: BP 122/62; BP 122/68; BMI 32.9
--- NOTE | 2025-04-11 08:01 | CA_ITS ---
Transthoracic Echocardiogram Patient (Last, First, Middle): Mamadou Bran R Gender: M Date of : 1960 Age: 64 Procedure Date: 04/11/2025 Procedure Type: Transthoracic Echocardiogram Location: OP Height: 175. cm Weight: 97.98 kg BSA: 2.13 m2 Heart Rate: bpm BP: 164 / 90 mmHg Stage Electrician: KANIKA Referring MD: Yan Aldana MD Online User Experience Strategist: Yan Aldana MD Symptoms: Z95.2 - Presence of prosthetic heart valve Study Quality: Adequate ECG Rhythm: Sinus Conclusions: - 1. Normal LV ejection fraction 55-60% with mild LVH with impaired relaxation filling pattern 2. Mildly dilated left atrium 3. Increased gradient across bioprosthetic aortic valve to 21 mm Hg suggestive of early stenosis 4. Normal RV systolic pressure Findings Left Ventricle Normal left ventricular size and systolic function. There is mildly increased left ventricular wall thickness. The visually estimated ejection fraction is between 55-60%. Spectral Doppler is indicative of an impaired relaxation filling pattern. E/E prime ratio is between 8 and 15 consistent with indeterminate filling pressures. Right Ventricle Normal right ventricular cavity size and systolic function. Atria The left atrium is mildly dilated. Interatrial shunt cannot be excluded. The right atrium is normal in size. Aortic Valve A bioprosthetic aortic valve is present. The prosthetic aortic valve appears to be functioning abnormally. Echo findings are consistent with stenosis of the aortic valve prosthesis. The mean gradient is 21 mmHg. There is no aortic valve regurgitation. Mitral Valve There is mild anterior and posterior mitral leaflet thickening. There is trace mitral valve regurgitation. There is no mitral valve stenosis. Pulmonic Valve The pulmonic valve was not well visualized. Tricuspid Valve Likely normal tricuspid valve structure and function. There is mild tricuspid valve regurgitation. The right ventricular systolic pressure is normal. The right ventricular systolic pressure is 21 mmHg. Normal right atrial pressure. There is no evidence of pulmonary hypertension. Great Vessels All visible segments of the aorta are normal in size. The pulmonary artery was not well visualized. There is no dilatation of the ascending aorta measuring 3.40 cm. Venous The inferior vena cava is normal in size. Pericardium/Pleural The pericardium was not well visualized. Prior Study Comparison Changes noted compared to prior study dated: 07/13/2022. increased gradient across the bioprosthetic aortic valve suggestive of stenosis Measurements 2D Linear Measurements IVSd: 1.22 0.6-0.9/0.6-1.0 cm LVIDd: 4.13 3.9-5.3/4.2-5.9 cm LVIDd Index: 1.94 2.4-3.2/2.2-3.1 cm/m2 LVIDs: 2.54 2.0-3.6 cm LVPWd: 1.33 0.7-1.1 cm LA Diam: 4.60 2.7-3.8/3.0-4.0 cm LAIDs Index: 2.16 1.5-2.3 cm/m2 LV Mass: 236.74 67-162/88-224 g LV Mass Index: 111.14 43-95/49-115 g/m2 LVOT Diam: 1.90 3.0+(-)1.3 cm 2D Systolic Function EF 4C: 52.30 >55% EF 2C: 56.60 >55% EF BiP: 56.20 >55% Mitral Valve MV Pk E: 1.07 MV PK A: 1.16 MV Decel Time: 263.00 E/A: 0.90 E'Lateral: 10.70 E'Medial: 5.77 E/E' Med: 18.50 E/E' Lat: 10.00 PHT: 77.00 MVA PHT: 2.86 Decel Otoe: 4.08 Aortic Valve AoV Pk Surjit: 3.04 AoV Mn Surjit: 2.13 AoV VTI: 0.54 AoV Pk Grad: 37.00 Aov Mn Grad: 21.00 CLEOPATRA Cont.VTI: 1.44 LVOT LVOT Pk Surjit: 1.41 LVOT Mn Surjit: 0.98 LVOT VTI: 0.28 LVOT Pk Grad: 8.00 LVOT Mn Grad: 4.00 LVOT Diam: 1.90 LVOT Area: 2.84 Diastolic Function MV Pk E: 1.07 MV Pk A: 1.16 E/A: 0.90 E'Medial: 5.77 E/E' Med: 18.50 E' Laterial: 10.70 E/E' Lat: 10.00 Right Ventricle TAPSE (mm): 10.60 TVS' Surjit: 9.03 Tricuspid Valve TR Pk Surjit: 2.15 TR Pk Grad: 18.00 RA Press: 3.00 RVSP: 21.00 Great Vessels Aorta Sinus of Valsalva: 3.20 2.0-3.5 cm Ao Asc: 3.40 2.1-3.4 cm Pulmonary Veins Pulm Vein S/D 1.40 Pulmonary Valve PV Pk Surjit: 1.66 Peak PV Grad: 11.00 Updated in Other Vendor System with Status of Final Yan Aldana MD electronically signed on 04/12/2025 11:34:39 AM with status of Final
--- OUTSIDE RECORDS SUMMARY | 2025-04-11 08:02 | XMS_ITS | Encounter Summary ---
Author Organization [facility] Address [address] [place] [address] Care Team Providers Care Medical Underwriter Name Role Phone Patient, Has No Pcp Or Ref Primary Care Provider Unavailable Encounter Details Date Type Department Care Team (Late st Contact Info) Description 02/15/2025 Telephone [facility] Nuclear Medicine [address] [place] [phone] Gunjan Doe RN Social History Tobacco Use [...] on filedocumented in this encounter Care Teams Medical Underwriter Relationship Specialty Start Date End Date Patient, Has No Pcp Or Ref DO NOT EDIT THIS RECORD VIA PROVIDER ON THE FLY PCP - General Computer Engineering Technologist 11/05/20 documented as of this encounter
== END ==
LOC: HO.CARD 07:59
PROVIDERS: Visit Provider Internal Medicine Cardiovascular Disease
DX: R42 Dizziness and giddiness (principal); R00.0 Tachycardia, unspecified; Z95.2 Presence of prosthetic heart valve; I10 Essential (primary) hypertension
CPT/HCPCS: 93270; 93306

== ENCOUNTER → 2025-04-11 08:01 | Outpatient (BNV) | payer OTHER, SELFPAY ==
[2023-04-10 09:05] VITALS: BP 122/62; BP 122/68; BMI 32.9
== END ==
PROVIDERS: Visit Provider Internal Medicine Cardiovascular Disease
DX: Z95.2 Presence of prosthetic heart valve (principal)
CPT/HCPCS: 93306

== ENCOUNTER 2025-04-23 07:57 | Outpatient (AMB) | payer OTHER, SELFPAY ==
[2023-04-10 09:05] VITALS: BP 122/62; BP 122/68; BMI 32.9
--- OUTSIDE RECORDS SUMMARY | 2025-04-23 08:03 | XMS_ITS | Clinical Summary ---
Author Organization [facility] Address [address] [place] [address] Care Team Providers Care [employer] Adviser Name Role Phone Ref, Has No Pcp Or Primary Care Provider Unavail able Allergies No known active allergies Medications atorvastatin (LIPITOR) 20 mg tablet Take 1 tablet (20 mg total) by mouth nightly. 30 tablet 1 1 Active Additional Information Patient taking differently: 40 mgoral Nightly, Reported on 02/14/2025 aspirin 81 mg EC tablet Take 1 tablet (81 mg total) by mouth daily. Patient can take OTC alternatives. 30 tablet 1 1 Active Nexletol 180 mg tablet Take 180 mg by mouth daily. 5 Active amLODIPine (NORVASC) 5 mg tablet Take 1 tablet (5 mg total) by mouth once a day. 90 tablet 5 Active Active Problems Problem Noted Date Diagnosed [...] care physician. He declined a referral to [facility] ENT clinic. Hypertensive urgency 11/05/2020 Assessment & [...] monitoring -TTE -Lipid panel, A1c Hypertension 11/05/2020 Encounters Date Type Department Care Team Description 02/26/2025 11:14 PM EDT - 02/27/2025 2:30 AM EDT Emergency [facility] Emergency Department [address] [place] [id number] Lionel Christianson MD Palpitations (Primary Dx) Discharge Disposition: Home or Self Care () 02/15/2025 Telephone [facility] Nuclear Medicine [address] [place] [address] uGnjan Doe RN 02/14/2025 3:01 PM EDT - 02/16/2025 3:10 PM EDT Hospital Encounter [facility] Emergency Department [address] [place] [address] Lionel Soto MD Nalbandian, Ari D., MD Dizziness (Primary Dx); Primary hypertension; 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 Discharge Disposition: Home or Self Care (01) from Last 3 Months Family History Medical History Relation Name Comments [...] Sign Reading Time Taken Comments Blood Pressure 131/87 02/27/2025 2:00 AM EDT Pulse 83 02/27/2025 2:00 AM EDT Temperature 36.7 C (98 F) 02/27/2025 2:00 AM EDT Respiratory Rate 14 02/27/2025 2:00 AM EDT Oxygen Saturation 94% 02/27/2025 2:00 AM EDT Inhaled Oxygen Concentration - - Weight 98 kg (216 lb) 02/26/2025 9:46 AM EDT Height 175.3 cm (5' 9 ) 02/26/2025 9:46 AM EDT Body Mass Index 31.9 02/26/2025 9:46 AM EDT Plan of Treatment Health Maintenance Due Date Last Done Comments Cologuard 1961 Colon Cancer Screening 1961 Colonoscopy 1961 FOBT / Fit Test 1961 HIV Screening 1961 Sigmoidoscopy 1961 DTaP,Tdap,and Td Vaccines (1 - Tdap) 1983 Pneumococcal Vaccine: 50+ Years (1 of 1 - PCV) 2011 Zoster Vaccines (1 of 2) 2011 Alcohol/Substance Use Screening 08/21/2024 Depression Screening and Follow-Up 08/21/2024 Social Drivers of Health Annual Screening 08/21/2024 COVID-19 Vaccine ( season) 2025 12/01/2023, 04/06/2022, 07/27/2021, Additional history exists Influenza Vaccine (#1) 2025 Basic Metabolic Panel 02/26/2026 02/26/2025 , 02/14/2025, 11/07/2020, Additional history exists Diabetes Screening 02/27/2028 02/26/2025, 0 02/14/2025, 11/07/2020, Additional history exists Hepatitis C Screening Completed 11/05/2020 RSV Vaccine (60+ years old and patients) Completed 12/01/2023 Hepatitis B Vaccines Aged Out No long er eligible based on patient's age to complete this topic Procedures * Due to [place] state law, this organization might not be sharing negative HIV tests. Procedure Name Priority Date/Time Associated Diagnosis Comments TROPONIN T HIGH SENSITIVITY STAT 02/26/2025 1:44 PM EDT TROPONIN T HIGH SENSITIVITY STAT 02/26/2025 11:15 AM EDT TROPONIN T HIGH SENSITIVITY STAT 02/26/2025 10:05 AM EDT BASIC METABOLIC PANEL STAT 02/26/2025 10:05 AM EDT CBC AUTO DIFFERENTIAL STAT 02/26/2025 10:05 AM EDT ECG 12-LEAD STAT 02/26/2025 10:03 AM EDT TRANSTHORACIC ECHO (TTE) LIMITED W/ DOPPLER AND COLOR STAT 02/16/2025 11:37 AM EDT NM PHARMACOLOGIC MYOCARDIAL PERFUSION (STRESS AND REST) STAT 02/15/2025 9:44 AM EDT LIPID PANEL W/REFLEX TO DIRECT LDL STAT Add-on 02/14/2025 4:27 PM EDT TROPONIN T HIGH SENSITIVITY STAT 02/14/2025 4:27 PM EDT GARDUNO TOP Routine 02/14/2025 3:32 PM EDT LIGHT BLUE TOP Routine 02/14/2025 3:32 PM EDT EXTRA TUBES Routine 02/14/2025 3:32 PM EDT TROPONIN T HIGH SENSITIVITY STAT 02/14/2025 3:24 PM EDT MAGNESIUM STAT 02/14/2025 3:24 PM EDT BASIC METABOLIC PANEL STAT 02/14/2025 3:24 PM EDT CBC AUTO DIFFERENTIAL STAT 02/14/2025 3:24 PM EDT HEART & VASCULAR - SCANNED 02/14/2025 HEPATITIS C ANTIBODY W/REFLEX TO HCV RNA, QUANTITATIVE PCR STAT 11/05/2020 1:59 PM EDT from Last 3 Months or Most Recently Relevant to Health Maintenance Results * Due to [place] state law, this organization might not be sharing negative HIV tests. * Repeat Troponin #2 (02/26/2025 1:44 PM EDT) Only the most recent of5 resultswithin the time period is included. Troponin T High Sensitivity 8 <=21 ng/L 02/26/2025 2:45 PM EDT [facility] Comment: 2+ hemolysis; the result may be Falsely Decreased. Pe-Zkbwsqce-Z level of 52 ng/L or higher at 0-hour at presentation is recommended by the ESC 0/1-hour algorithm for identifying patients at high risk for ruling in acute myocardial infarction (AMI) in the appropriate clinical context. Repeat troponin testing 1-3 hours after the initial sample may be helpful in assessing for ongoing myocardial injury. Troponin elevations can be seen in several other non-infarct conditions, and the change (delta) should be evaluated in line with the 4th [place] Definition of AMI. Troponin baseline and serial elevation for a significant delta should be interpreted with clinical presentation, history, signs and symptoms, ECG, and biomarker concentrations. For inpatient setting: Value <12ng/L is considered negative for all genders. 0-1hr: A delta change of <3 will be considered negative/flat if chest pain onset >3 hours 0-3hr: A delta change of <7 will be considered negative/flat Blood Structure of peripheral vein / Unknown Venipuncture / Unknown 02/26/2025 1:44 PM EDT 02/26/2025 2:12 PM EDT us Lionel Christianson MD LAB BLOOD ORDERABLES Final Result Must See [facility] [address] [place] [id number], * (ABNORMAL) CBC Auto Differential (02/26/2025 10:05 AM EDT) Only the most recent of2 resultswithin the time period is included. WBC 4.4 3.8 - 10.8 10*3/uL 02/26/2025 10:27 AM EDT [facility] RBC 6.00(H) 4.20 - 5.80 10*6/uL 02/26/2025 10:27 AM EDT [facility] Hemoglobin 16.7 13.2 - 17.1 g/dL 02/26/2025 10:27 AM EDT [facility] Hematocrit 50.5(H) 38.5 - 50.0 % 02/26/2025 10:27 AM EDT [facility] MCV 84.2 80.0 - 100.0 fL 02/26/2025 10:27 AM EDT [facility] MCH 27.8 27.0 - 33.0 pg 02/26/2025 10:27 AM EDT [facility] MCHC 33.1 32.0 - 36.0 g/dL 02/26/2025 10:27 AM EDT [facility] RDW 13.5 11.0 - 15.0 % 02/26/2025 10:27 AM EDT [facility] Platelets 196 140 - 400 10*3/uL 02/26/2025 10:27 AM EDT [facility] MPV 10.0 7.5 - 12.5 fL 02/26/2025 10:27 AM EDT [facility] Neutrophil % 62.2 % 02/26/2025 10:27 AM EDT [facility] Immature Grans % 0.0 0.0 - 0.9 % 02/26/2025 10:27 AM EDT [facility] Lymphocyte % 22.2 % 02/26/2025 10:27 AM EDT [facility] Monocyte % 12.2 % 02/26/2025 10:27 AM EDT [facility] Eosinophil % 2.3 % 02/26/2025 10:27 AM EDT [facility] Basophil % 1.1 % 02/26/2025 10:27 AM EDT [facility] Neutrophil # 2.71 1.50 - 7.80 10*3/uL 02/26/2025 10:27 AM EDT [facility] Immature Grans # <0.03 <=0.03 10*3/uL 02/26/2025 10:27 AM EDT [facility] Lymphocyte # 1.00 0.85 - 3.90 10*3/uL 02/26/2025 10:27 AM EDT [facility] Monocyte # 0.50 0.20 - 0.95 10*3/uL 02/26/2025 10:27 AM EDT [facility] Eosinophil # 0.10 0.02 - 0.50 10*3/uL 02/26/2025 10:27 AM EDT [facility] Basophil # 0.10 0.00 - 0.20 10*3/uL 02/26/2025 10:27 AM EDT [facility] [employer] [facility] nRBC % 0.0 /100 WBCs 02/26/2025 10:27 AM EDT [facility]ITAL[facility] [employer] [facility] nRBC # <0.01 <0.01 10*3/uL 02/26/2025 10:27 AM EDT [id number] [facility] Blood Structure of peripheral vein / Unknown Venipuncture / Unknown 02/26/2025 10:05 AM EDT 02/26/2025 10:18 AM EDT us Lionel Christianson MD LAB BLOOD ORDERABLES Final Result [facility] [employer] [facility] [address] [place] [phone], * (ABNORMAL) Basic Metabolic Panel (02/26/2025 10:05 AM EDT) Only the most recent of2 resultswithin the time period is included. NA 139 135 - 145 mmol/L 02/26/2025 10:51 AM EDT [facility] K 4.1 3.5 - 5.3 mmol/L 02/26/2025 10:51 AM EDT [facility] Cl 104 98 - 107 mmol/L 02/26/2025 10:51 AM EDT [facility] CO2 22 22 - 32 mmol/L 02/26/2025 10:51 AM EDT [facility] BUN 19 7 - 23 mg/dL 02/26/2025 10:51 AM EDT [id number] [facility] Creatinine 0.87 0.60 - 1.30 mg/dL 02/26/2025 10:51 AM EDT [facility] Glucose 126(H) 65 - 99 mg/dL 02/26/2025 10:51 AM EDT [facility] Calcium 9.6 8.6 - 10.5 mg/dL 02/26/2025 10:51 AM EDT [facility] Anion Gap 13 5 - 15 02/26/2025 10:51 AM EDT [facility] eGFR >90 >=60 mL/min/1. 73m2 02/26/2025 10:51 AM EDT [facility] Comment:The estimated glomer ular filtration rate (eGFR) is calculated using a new formula developed by the NKF-ASN task force to eliminate race-based correction factors. The new formula uses serum/plasma creatinine, age, and gender to determine eGFR. A value below 60mls/min might indicate kidney disease and will be flagged. For additional information, see Breonna et al, Am J Kidney Dis. 2021;79(2):268- 288, A Unifying Approach for GFR estimation: Recommendations of the NKF-ASN Task Force on Reassessing the Inclusion of Race in Diagnosing Kidney Disease . Blood Structure of peripheral vein / Unknown Venipuncture / Unknown 02/26/2025 10:05 AM EDT 02/26/2025 10:19 AM EDT us Lionel Christianson MD LAB BLOOD ORDERABLES Final Result [facility] [address] [place] [address], * ECG 12 lead (02/26/2025 10:03 AM EDT) Ventricular Rate EKG 100 BPM MUSE EKG Atrial Rate 100 BPM MUSE EKG ND Interval 160 ms MUSE EKG QRS Interval 108 ms MUSE EKG QT Interval 348 ms MUSE EKG QTC Interval 448 ms MUSE EKG P Gordon -17 degrees MUSE EKG R Gordon 79 degrees MUSE EKG T Wave Gordon -48 degrees MUSE EKG 02/26/2025 10:0 3 AM EDT 03/07/2025 12:34 PM EDT Impressions MUSE EKG - 03/07/2025 12:34 PM EDT NORMAL SINUS RHYTHM INFERIOR INFARCT (CITED ON OR BEFORE 05-Nov-2020) ANTEROLATERAL INFARCT (CITED ON OR BEFORE 05-Nov-2020) ABNORMAL ECG WHEN COMPARED WITH ECG OF 14-Feb-2025 15:16, (UNCONFIRMED) NO SIGNIFICANT CHANGE WAS FOUND Confirmed by Shankar Gunn ([id number]) on 03/07/2025 12:34:17 PM Narrative Procedure Note O'Shankar Hilliard MD - 03/07/2025 IMPRESSION: NORMAL SINUS RHYTHM INFERIOR INFARCT (CITED ON OR BEFORE 05-Nov-2020) ANTEROLATERAL INFARCT (CITED ON OR BEFORE 05-Nov-2020) ABNORMAL ECG WHEN COMPARED WITH ECG OF 14-Feb-2025 15:16, (UNCONFIRMED) NO SIGNIFICANT CHANGE WAS FOUND Confirmed by Shankar Gunn ([id number]) on 03/07/2025 12:34:17 PM us Lionel Christianson MD ECG ORDERABLES Final Resul t MUSE EKG * TRANSTHORACIC ECHO (TTE) LIMITED W/ DOPPLER AND COLOR (02/16/2025 11:37 AM EDT) BSA 2.2 m2 LVOT diameter 2.1 cm LVOT area 3.46 cm2 LVOT peak sallie 0.92 m/s LVOT stroke volume 56 cm3 LV stroke vol index 25.3 mL/m2 AV mean gradient 9 mmHg AV peak gradient 15 mmHg Ao peak sallie 2.0 m/s Ao VTI 36.33 cm LVOT peak VTI 15.80 cm AV VALVE AREA INDEX 0.70 cm2/m2 AV valve area 1.50 cm2 AV area pk sallie 1.7 cm2 AV Doppler sallie index pk sallie 0.47 AV Velocity Ratio 0.44 Aortic Valve Diam 2.1 cm LVIDD 4.4 cm IVS 1.3 cm Relative Wall Thickness 0.52 PW 1.1 cm LV mass 196 LV Mass Index 89 g/m2 LV ED Post Wall 1.10 LV ED Dimension 4.40 Anatomical Region Laterality Modality Heart Echocardiography Narrative 02/16/2025 12:16 PM EDT Focused echocardiogram. Despite focal apical lateral hypokinesis, left ventricular systolic function is preserved. Estimated ejection fraction 55-60%. Mild aortic valve stenosis. Comparison was made with the study of 11/06/2020. Ejection fraction is lower on the current study but remains in the normal range. A focal area of hypokinesis is present in the apical lateral wall. Aortic valve velocities/gradients are lower on the current study which may be related to technique. Aortic stenosis remains in the mild range by valve area and gradients. Left Ventricle The left ventricle size is normal. Increased left ventricular wall thickness. Left ventricular mass index is normal. There is increased relative wall thickness and normal left ventricular mass index, consistent with concentric remodeling. Normal left ventricular wall motion. Normal left ventricular systolic function with visually estimated LVEF 55-60%. Right Ventricle Right ventricle size is normal. Normal right ventricular systolic function. Mitral Valve Mildly thickened mitral leaflets. No mitral regurgitation. No mitral stenosis. Tricuspid Valve Tricuspid valve Not well visualized. No tricuspid regurgitation. No tricuspid stenosis. Aortic Valve Moderate aortic valve cusp thickening. Moderate aortic valve calcification. No aortic regurgitation. Mild aortic stenosis. Pericardium No pericardial effusion. Study Details A limited echo was performed using 2D imaging, color flow Doppler and limited spectral Doppler. During the study the apical and parasternal view was captured. Overall the study quality was adequate. STRESS ECHO OVERALL FINDINGS No hemodynamically significant valve disease Wall Scoring Baseline Score Index: 1.06 The following segments are hypokinetic: apical lateral. All other segments are normal. us Drew Kenny NP CV ECHO PROCEDURES Final R esult * NM Pharmacologic Myocardial Perfusion Spect (Stress and Rest) (02/15/2025 9:44 AM EDT) Anatomical Region Laterality Modality Body Nuclear Medicine 02/15/2025 12:5 2 PM EDT Impressions 02/15/2025 1:05 PM EDT 1. Abnormal pharmacologic myocardial perfusion imaging. 2. There is a moderate area of myocardium at risk for ischemia in the distribution of the circumflex associated with some degree of infarct/scarring. 3. Gated imaging shows preserved left ventricular systolic function, calculated LVEF 58% with apical lateral akinesis. COMMUNICATION: Per this written report. If this radiology report contains a blank impression section, it is an incomplete radiology report. Please contact the interpreting radiologist or applicable radiology division as soon as possible to obtain the completed interpretation. Workstation ID: [id number] Narrative 02/15/2025 1:05 PM EDT EXAMINATION: Regadenoson Myocardial Perfusion Imaging. INDICATION: Symptoms/History: Presyncope. TECHNIQUE: Regadenoson 0.4 mg was administered IV followed by 10 mCi Tc-99m sestamibi IV. 30 mCi Tc-99m sestamibi were injected at rest. A cardiac rest SPECT study was collected for tomographic reconstruction and computer processing. A cardiac stress SPECT study was collected for tomographic reconstruction and computer processing later in the day. Gated perfusion images were also collected. Resting ECG: Sinus rhythm, left bundle branch block. Resting Heart Rate: 90 Resting Blood Pressure: 164/102 Reason for Terminating the Test: Completion of protocol. Peak Heart Rate: 122 Lowest Blood Pressure: 194/116 Cardiac Symptoms: None Other Symptoms: Dizziness. ST Changes: None. Arrhythmias: None. Dr. Ashley was immediately available for assistance and direction during the stress test. STRESS TEST FINDINGS: This stress test is negative for chest pain, nondiagnostic for ischemic ECG changes and negative for significant arrhythmia. MYOCARDIAL PERFUSION IMAGING FINDINGS: The immediate post-stress myocardial images show severely reduced tracer uptake in the mid to distal inferior, and apical lateral schmidt. There is also mildly reduced tracer uptake in the basal to mid inferior inferolateral schmidt. Resting images severely reduced tracer uptake at the apical lateral wall. The other areas show improvement in tracer uptake. ECG-gated myocardial images acquired post-stress demonstrate akinesis in the apical lateral wall. The calculated LVEF = 58%. The LV chamber size is normal. The right ventricle shows normal size and systolic function. Resulting Agency Comment [id number] Procedure Note Roc Ashley II, MD - 02/15/2025 EXAMINATION: Regadenoson Myocardial Perfusion Imaging. INDICATION: Symptoms/History: Presyncope. TECHNIQUE: Regadenoson 0.4 mg was administered IV followed by 10 mCi Tc-99m sestamibiIV. 30 mCi Tc-99m sestamibi were injected at rest. A cardiac rest SPECTstudy was collected for tomographic reconstruction and computerprocessing. A cardiac stress SPECT study was collected for tomographicreconstruction and computer processing later in the day. Gated perfusionimages were also collected. Resting ECG: Sinus rhythm, left bundle branch block. Resting Heart Rate: 90 Resting Blood Pressure: 164/102 Reason for Terminating the Test: Completion of protocol. Peak Heart Rate: 122 Lowest Blood Pressure: 194/116 Cardiac Symptoms: None Other Symptoms: Dizziness. ST Changes: None. Arrhythmias: None. Dr. Ashley was immediately available for assistance and direction duringthe stress test. STRESS TEST FINDINGS: This stress test is negative for chest pain, nondiagnostic for ischemicECG changes and negative for significant arrhythmia. MYOCARDIAL PERFUSION IMAGING FINDINGS: The immediate post-stressmyocardial images show severely reduced tracer uptake in the mid to distalinferior, and apical lateral schmidt. There is also mildly reduced traceruptake in the basal to mid inferior inferolateral schmidt. Resting imagesseverely reduced tracer uptake at the apical lateral wall. The other areasshow improvement in tracer uptake. ECG-gated myocardial images acquiredpost-stress demonstrate akinesis in the apical lateral wall. Thecalculated LVEF = 58%. The LV chamber size is normal. The rightventricle shows normal size and systolic function. IMPRESSION: 1. Abnormal pharmacologic myocardial perfusion imaging. 2. There is a moderate area of myocardium at risk for ischemia in thedistribution of the circumflex associated with some degree ofinfarct/scarring. 3. Gated imaging shows preserved left ventricular systolic function,calculated LVEF 58% with apical lateral akinesis. COMMUNICATION: Per this written report. If this radiology report contains a blank impression section, it is anincomplete radiology report. Please contact the interpreting radiologistor applicable radiology division as soon as possible to obtain thecompleted interpretation. Workstation ID: [id number] us Katherine Lazcano ASSOCIATE DIRECTOR FINANCIAL AID IMG NM PROCEDURES Final Re sult * Lipid Panel w/Reflex to Direct LDL (02/14/2025 4:27 PM EDT) Cholesterol 155 <=199 mg/dL 02/14/2025 9:24 PM EDT [facility] Triglycerides 75 <=149 mg/dL 02/14/2025 9:24 PM EDT [facility] Cholesterol, HDL 53 40 - 59 mg/dL 02/14/2025 9:24 PM EDT [facility] Cholesterol, Non-HDL 102 mg/dL 02/14/2025 9:24 PM EDT [facility] LDL Cholesterol 87 <100 mg/dL 02/14/2025 9:24 PM EDT [facility] VLDL 15 mg/dL 02/14/2025 9:24 PM EDT [facility] Cholesterol/HDL Ratio 2.9 <5.0 02/14/2025 9:24 PM EDT [facility] Blood Structure of peripheral vein / Unknown Venipuncture / Unknown 02/14/2025 4:27 PM EDT 02/14/2025 4:32 PM EDT Narrative [facility] - 02/14/2025 9:24 PM EDT Adult Treatment Panel III Guidelines of NCEP 2001 Category: Total Cholesterol (mg/dL) Desirable <200 Borderline High 200-239 High >=240 Category: LDL Cholesterol (mg/dL) Optimal <100 Near Optimal/Above Optimal 100-129 Borderline High 130-159 High 160-189 Very High >=190 Category: HDL Cholesterol (mg/dL) Low <40 High >=60 NCEP's Expert Panel on Blood Cholesterol in Children and Adolescents Category: Total Cholesterol (mg/dL) Desirable <170 Borderline High 170-199 High >=200 Category: LDL Cholesterol (mg/dL) Desirable <110 Borderline High 110-129 High >=130 us Katherine Lazcano ASSOCIATE DIRECTOR FINANCIAL AID LAB BLOOD ORDERABLES Final Result [facility] [address] [place] [address], * Garduno Top (02/14/2025 3:32 PM EDT) Extra Tube Hold for add-ons. 02/14/2025 8:05 PM EDT [facility] Comment:Auto resulted. Blood Structure of peripheral vein / Unknown 02/14/2025 3:32 PM EDT 02/14/2025 3:32 PM EDT us Protocol Unv Adult Treatment LAB BLOOD ORDERA BLES Final Result Performing Organization Address [facility]/ZIP Co de Phone Number [facility] [address] [place] [phone], [place] * Light Blue Top (02/14/2025 3:32 PM EDT) Extra Tube Hold for add-ons. 02/14/2025 8:05 PM EDT [facility] Comment:Auto resulted. Blood Structure of peripheral vein / Unknown 02/14/2025 3:32 PM EDT 02/14/2025 3:32 PM EDT us Protocol Unv Adult Treatment LAB BLOOD ORDERA BLES Final Result Performing Organization Address [facility]/ZIP Co de Phone Number [facility] [address] [place] [phone], [place] * Magnesium (02/14/2025 3:24 PM EDT) MG 1.9 1.6 - 2.4 mg/dL 02/14/2025 4:11 PM EDT [facility] Blood Structure of peripheral vein / Unknown Venipuncture / Unknown 02/14/2025 3:24 PM EDT 02/14/2025 3:31 PM EDT us Isaac Sinha MD LAB BLOOD ORDERABLES Final Result Performing Organization Address [facility]/ZIP Co de Phone Number [facility] [address] [place] [phone], [place] * HEART & VASCULAR - SCANNED (02/14/2025) Anatomical Region Laterality Modality Other us Onbase Scan Wes SCANNED PROCEDURES Final Resu lt * Hepatitis C Antibody w/Reflex to HCV RNA, Quantitative PCR (11/05/2020 1:59 PM EDT) Hepatitis C Antibody NON-REACT JAYME NON-REACT JAYME 11/06/2020 2:21 AM EDT [facility] Signal To Cut-Off 0.01 <1.00 11/06/2020 2:[address] [facility] Comment: HCV antibody was non-reactive. There is no laboratory evidence of HCV infection. In most cases, no further action is required. However, if recent HCV exposure is suspected, a test for HCV RNA (test code 27584) is suggested. For additional information please refer to http://education.[facility]/faq/DTY56p4 (This link is being provided for informational/ educational purposes only.) Blood Structure of peripheral vein / Unknown Venipuncture / Unknown 11/05/2020 1:59 PM EDT 11/05/2020 2:12 PM EDT Narrative [facility] - 11/06/2020 2:21 AM EDT [facility] Received Date:[id number] Gerry Recio MD LAB BLOOD ORDERABLES Final R esult [facility] [address], [address] [place] [address], [place] [phone] [facility] [address], [place] [address], from Last 3 Months or Most Recently Relevant to Health Maintenance Insurance [employer] PPO/EPO/IND [employer] Advance Directives Documents on File Type Date Recorded Patient Housekeeper And Laundry Assistant Expl anation Health Care Proxy 11/06/2020 3:00 PM 11-05 * Full Code (Latest Code Status on File) Date Activated Date Inactivated Comments 02/14/2025 8:55 PM 02/16/2025 5:15 PM * Full Code Date Activated Date Inactivated Comments 02/14/2025 8:55 PM 02/14/2025 8:55 PM * Full Code Date Activated Date Inactivated Comments 11/05/2020 11:38 PM 11/07/2020 5:01 PM Healthcare Agents on File Name Relationship Healthcare Agent Relationshi p Communication Vivi Bran Spouse Health Care Agent Mony Balbuena Daughter Alternate Health Care A [facility] Care Teams Feed And Farm Management Adviser Relationship Specialty Start Date End Date Ref, Has No Pcp Or DO NOT EDIT THIS RECORD VIA PROVIDER ON THE FLY PCP - General Instrument Repairer Steam Plant 11/05/20
--- OUTSIDE RECORDS SUMMARY | 2025-04-23 08:03 | XMS_ITS | Encounter Summary ---
Author Organization [facility] Address [address] [place] [address] Care Team Providers Care Junior Network Engineer Name Role Phone Ref, Has No Pcp Or Primary Care Provider Unavail able Encounter Details Date Type Department Care Team (Late st Contact Info) Description 02/15/2025 Telephone [facility] Nuclear Medicine [address] [place] [id number] Gunjan Doe RN Social History Tobacco Use [...] on filedocumented in this encounter Care Teams Junior Network Engineer Relationship Specialty Start Date End Date Ref, Has No Pcp Or DO NOT EDIT THIS RECORD VIA PROVIDER ON THE FLY PCP - General Hoop Expander 11/05/20 documented as of this encounter
[2025-04-23 08:05] VITALS: BP 144/82; PULSE 83; O2SAT 97; BMI 31.9
--- NOTE | 2025-04-23 08:05 | MHC.PC.OV ---
Vital Signs 04/23/25 08:05 Height 5 ft 9 in Weight 216 lb BMI 31.9 BP 144/82 H Blood Pressure Location Lt brachial Position Sitting Pulse 83 Pulse Source Pulse Oximeter Pulse Oximetry (%) 97 Oxygen Delivery Method Room Air Intake Visit Reasons: back pain transfer from [facility] Allergies No Known Allergies Allergy (Verified 04/23/25 08:11) Medication List - Last Reconciled 04/23/25 by Gayathri Amin PA-C amlodipine 5 mg PO DAILY aspirin 81 mg PO DAILY atorvastatin 40 mg PO BEDTIME carvedilol 6.25 mg PO BID ezetimibe 10 mg PO DAILY Tobacco use date assessed: 04/23/25 Dental Screening Dental Screen Date: 04/23/25 Did you have a dental visit in the last 12 months?: No Did you have a dental problem in the last 6 months where you did not have access to dental care?: No Was dental information given to patient?: Patient has dentist HPI back pain transfer from [facility] HPI Details 64-year-old male with past medical history of hypertension, hyperlipidemia, bilateral carotid stenosis, BPH, coronary artery disease s/p CABG x3 and s/p AVR last seen 01/2023 coming in for transfer of care. In review of the notes, patient was seen by Cardiology 03/2025 cardiac event monitor pending advised to follow up in 4 months or sooner if needed. Presenting with hypertension, dizziness, and back pain. The patient has a history of elevated blood pressure, with a recent reading of 224/150 mmHg during an episode at work, leading to hospitalization for three days. Current medications include carvedilol and amlodipine, with adjustments made due to leg swelling. The patient reports episodes of dizziness, described as room spinning, lasting 5-10 seconds, and occurring daily. These episodes are sometimes triggered by movement or stretching. The patient has experienced sciatic pain on the left side for over a year, with recent involvement of the right side. The pain is exacerbated by prolonged sitting and relieved by lying flat with knees elevated. The patient reports persistent back pain since December, affecting the entire back, with stiffness in the neck. The pain fluctuates in intensity and is associated with a stiff neck, particularly on the left side. [facility] Medical History CAD (coronary artery disease) History of kidney stones Hyperlipidemia Aortic stenosis HTN (hypertension) Surgical History S/P CABG x 3 S/P AVR History of appendectomy History of hernia surgery Family History Father CVD (cardiovascular disease) Mother CVD (cardiovascular disease) Social History Housing: House Alcohol intake: current Alcohol intake frequency: holidays/special occasions only Patient Tobacco Use Status: Never used Tobacco Tobacco use type: Cigarette e-Cigarette/Vaping Use: Never Used Second Hand Smoke Exposure: No service: No Current occupational status: employed Cognitive needs: No Hearing needs: No Vision needs: Yes (reading glasses) Questionnaire PHQ-9 Over the last 2 weeks, how often have you been bothered by any of the following problems? 1. Little interest or pleasure in doing things: not at all 2. Feeling down, depressed, or hopeless: not at all 3. Trouble falling or staying asleep, or sleeping too much: not at all 4. Feeling tired or having little energy: not at all 5. Poor appetite or overeating: not at all 6. Feeling bad about yourself - or that you are a failure or have let yourself or your family down: not at all 7. Trouble concentrating on things, such as reading the newspaper or watching television: not at all 8. Moving or speaking so slowly that other people could have noticed. Or the opposite - being so fidgety or restless that you have been moving around a lot more than usual: not at all 9. Thoughts that you would be better off or of hurting yourself in some way: not at all Total score: 0 Depression Screening Interpretation: Negative Depression Screening Done: Yes 26207 - PHQ-9 Billing: Yes Source: Developed by Drs. Alejandro Diaz, Neeta Montoya, Vince Gaines and colleagues, with an educational ignacia from [employer]. Thrive Questionnaire Date Thrive assessed: 04/23/25 I am a: Patient What is your living situation today?: I have a steady place to live Within the past 12 months, did the food you bought not last and you didn't have the money to get more?: Never true Within the past 12 months, did you worry whether your food would run out before you got money to buy more?: Never true Do you have trouble paying for medicines?: No Do you have trouble getting transportation to medical appointments?: No Do you have trouble paying your heating and electricity bill?: No Do you have trouble taking care of your child, family member or friend?: No Do you have trouble with day-to-day activities such as bathing, preparing meals, shopping, managing finances, etc.?: No Are you currently unemployed and looking for a job?: No Are you interested in more education?: No Please select the resources that you would like help with: None Currently or been in a relationship where the following occur: No concerns reported THRIVE Score: 0 AUDIT C Alcohol Use Questionnaire (AUDIT-C) 1. How often do you have a drink containing alcohol?: Monthly or less 2. How many drinks containing alcohol do you have on a typical day when you are drinking?: 1 or 2 3. How often do you have six or more drinks on one occasion?: Less than monthly Total Score: 2 VALDO-7 AMB Questionnaire VALDO-7 Date VALDO - 7 assessed: 04/23/25 Feeling nervous, anxious, or on edge: 0 = Not at all Not being able to stop or control worryin = Not at all Worrying too much about different things: 0 = Not at all Trouble relaxin = Not at all Being so restless that it is hard to sit still: 0 = Not at all Becoming easily annoyed or irritable: 0 = Not at all Feeling afraid as if something awful might happen: 0 = Not at all Total VALDO-7 score (0-4 normal; 5-9 mild; 10-14 moderate; 15-21 severe): 0 Source: Developed by Drs. Alejandro Diaz, Neeta Montoya, Vince Gaines and colleagues, with an educational ignacia from [employer]. Review of Systems Const Denies body aches, Denies fatigue, Denies fever(s), Denies frequent falls, Denies headache(s) and Denies weakness Eyes Reports no additional complaints and Denies change in vision ENT Denies dizziness, Denies facial pain and Denies headache(s) Card Denies chest pain, Denies syncope, Denies leg edema, Denies lightheadedness and Denies dyspnea Resp Denies cough and Denies dyspnea GI Denies abdominal pain, Denies dyspepsia, Denies nausea and Denies vomiting Denies urinary frequency, Denies urinary hesitancy, Denies urinary incontinence and Denies urinary urgency Musc Reports abnormal gait, Reports back pain and Denies myalgias Skin/Breast Reports system reviewed and no additional complaints, except as documented Neuro Reports abnormal gait, Denies dizziness, Denies syncope, Denies frequent falls, Denies headache(s) and Denies weakness Psych Reports no additional complaints Endo Denies fatigue Physical exam (Primary Care) Vital Signs: Last Vital Signs Pulse 83 04/23/25 08:05 BP 144/82 H 04/23/25 08:05 Pulse Ox 97 04/23/25 08:05 Oxygen Delivery Method Room Air 04/23/25 08:05 BMI result Body Mass Index 31.9 Tobacco/Smoking Status: Tobacco use Status Tobacco use date assessed 04/23/25 04/23/25 08:10 Patient Tobacco Use Status Never used Tobacco 04/23/25 08:10 Tobacco use type Cigarette 04/23/25 08:10 e-Cigarette/Vaping Use Never Used 04/23/25 08:10 PHQ-9: PHQ-9 Score PHQ-9: Total score 0 04/23/25 12:50 Depression Screening Interpretation: Negative Thrive Assessment: Date of Thrive Assessment Date Thrive assessed 04/23/25 04/23/25 08:10 Currently or been in a relationship where the following occur: No concerns reported Const General: cooperative, healthy appearing, comfortable and no acute distress Orientation/consciousness: patient oriented x3 HENTX Head: Yes normocephalic Ears: hearing grossly normal bilaterally General nose exam: Normal external nose present Eyes General: appearance normal, both eyes and all related structures Conjunctivae: conjunctivae normal Neck Neck: Yes full ROM and Yes no lymphadenopathy Resp Effort & Inspection: normal respiratory effort Auscultation: clear to auscultation bilaterally, no crackles, no rales, no rhonchi and no wheezes Cardio Rate: regular rate Rhythm: regular rhythm Back/Spine/Pelvis Other: Tenderness to palpation over thoracic spine and lumbar paraspinal muscles Skin General skin exam: no rashes or lesions noted Neuro General: patient oriented x3 Gait exam (Neuro): Normal gait present Extrem General: Yes normal to inspection, Yes full ROM and No edema Psych Affect: normal affect Attitude: cooperative Insight: Good insight present (Psych) Judgement: Good judgement present (Psych) Coding Level of Care Code Est Pt Level 4 (14872) Diagnoses HTN (hypertension) I10 S/P AVR Z95.2 CAD (coronary artery disease) I25.10 S/P CABG x 3 Z95.1 Carotid stenosis, bilateral I65.23 Hyperlipidemia E78.5 Obesity E66.9 BPH (benign prostatic hyperplasia) N40.0 Low back pain M54.50 Neck pain M54.2 Joint pain M25.50 Dizziness R42 Additional Codes PHQ-9 - 63629 - PHQ-9 Billing: Yes ([id number]) Assessment & Plan Assessment & Plan (1) HTN (hypertension): Code(s): I10 - Essential (primary) hypertension Category: Medical Plan: The patient's hypertension is being managed with carvedilol and amlodipine, with recent adjustments due to leg swelling. Blood pressure monitoring is ongoing, and the patient is advised to avoid frequent self-monitoring to prevent anxiety. Home Blood pressure log reviewed and have been within acceptable range (2) S/P AVR: Comment: 23 mm bioprosthetic aortic valve concomitant with coronary artery bypass grafting for moderate aortic stenosis Code(s): Z95.2 - Presence of prosthetic heart valve Category: Medical Plan: Recent echocardiogram at [facility] was normal. (3) CAD (coronary artery disease): Code(s): I25.10 - Atherosclerotic heart disease of [place] coronary artery without angina pectoris Category: Medical Plan: Continue to work on cholesterol with atorvastatin 40 mg, blood pressure with carvedilol 6.25 mg b.i.d. and amlodipine 5 mg and blood sugar control. Ordered for repeat blood work and continue to follow with Cardiology (4) S/P CABG x 3: Comment: TOMPKINS to LAD, SVG to PDA and D2, April 2022 Code(s): Z95.1 - Presence of aortocoronary bypass graft Category: Medical Plan: See above (5) Carotid stenosis, bilateral: Code(s): I65.23 - Occlusion and stenosis of bilateral carotid arteries Category: Medical Plan: For carotid artery stenosis recommend controlling the blood pressure, continue on aspirin 81 mg and controlling the cholesterol. Recent LDL at acceptable levels. (6) Hyperlipidemia: Code(s): E78.5 - Hyperlipidemia, unspecified Category: Medical Plan: Avoid foods that are high in cholesterol such as red meat, fried foods, eggs and baked goods. Triglyceride goal of less than 150 and LDL goal of less than 70. Continue on atorvastatin 40 and Zetia 10 (7) Obesity: Code(s): E66.9 - Obesity, unspecified Category: Medical Plan: Healthy diet and regular exercise is encouraged. (8) BPH (benign prostatic hyperplasia): Code(s): N40.0 - Benign prostatic hyperplasia without lower urinary tract symptoms Category: Medical Plan: Ordered for repeat PSA. (9) Low back pain: Code(s): M54.50 - Low back pain, unspecified Category: Medical Plan: The patient reports chronic sciatic pain, with recent involvement of the right side. X-rays are ordered to assess for any underlying issues, and physical therapy may be considered based on results. Persistent back pain is being evaluated with x-rays to determine the cause. Depending on findings, referral to a specialist or physical therapy may be recommended. (10) Neck pain: Code(s): M54.2 - Cervicalgia Category: Medical Plan: Patient reporting neck pain and stiff neck that has been ongoing since December. Discussed he may need a new pillow as it is very old and hard. Plan for x-rays for further evaluation as well and consider PT (11) Joint pain: Code(s): M25.50 - Pain in unspecified joint Category: Medical Plan: Patient complaining of diffuse joint pain and does also work outside regularly. Plan to obtain Lyme panel as well as inflammatory markers for further evaluation. (12) Dizziness: Code(s): R42 - Dizziness and giddiness Category: Medical Plan: For episodes of dizziness that last 5-10 seconds and sometimes triggered by neck movements plan to obtain repeat carotid artery ultrasound for further evaluation as last 1 was completed in 2022 Plan During the visit, we discussed the management of hypertension with carvedilol and amlodipine, noting the need to adjust dosages due to leg swelling. We also addressed the patient's dizziness, planning further evaluation with blood work. For sciatica and back pain, x-rays were ordered to assess for any underlying issues, with potential referral to a specialist or physical therapy based on results. We emphasized the importance of monitoring symptoms and maintaining regular follow-ups with specialists for macular degeneration and BPH. This note was constructed using voice recognition software. While every effort has been made to ensure accuracy and provider contracting consultant, still areas may have been included sometimes these areas may affect the content or meeting of the given symptoms. Total time spent caring for the patient today was 30 minutes. This includes time spent before the visit reviewing the chart, time spent during the visit, and time spent after the visit and documentation. Patient was informed and verbally consented to the use of an ambient scribe for clinic note documentation during this visit. Orders: Orders C Reactive Protein Today M25.50 - Pain in unspecified joint Rheumatoid Factor Today M25.50 - Pain in unspecified joint Lyme IgG/IgM w/reflex to WB Today M25.50 - Pain in unspecified joint Comprehensive Met. Panel Today I25.10 - Atherosclerotic heart disease of [place] coronary artery without angina pectoris, Z00.00 - Encounter for general adult medical examination without abnormal findings PSA, Ultra Sensitive Today N40.0 - Benign prostatic hyperplasia without lower urinary tract symptoms, Z00.00 - Encounter for general adult medical examination without abnormal findings TSH reflex Free T4 Today Z13.29 - Encounter for screening for other suspected endocrine disorder Vitamin B12 and Folate Today Z13.21 - Encounter for screening for nutritional disorder Vitamin D 25-OH Total Today Z13.21 - Encounter for screening for nutritional disorder XR lumbar spine 2-3V Today M54.50 - Low back pain, unspecified XR cervical spine 2V Today M54.2 - Cervicalgia, M54.50 - Low back pain, unspecified XR thoracic spine 2V Today M54.2 - Cervicalgia, M54.50 - Low back pain, unspecified Erythrocyte Sedimentation Rate Today M25.50 - Pain in unspecified joint Complete Blood Count Auto Diff Today I25.10 - Atherosclerotic heart disease of [place] coronary artery without angina pectoris, Z00.00 - Encounter for general adult medical examination without abnormal findings US carotid duplex BI Today I65.23 - Occlusion and stenosis of bilateral carotid arteries
== END 2025-04-23 08:42 | disposition home or self-care (01) ==
LOC: HO.HMCH 07:58
DX: I10 Essential (primary) hypertension (principal); Z95.2 Presence of prosthetic heart valve; I25.10 Atherosclerotic heart disease of native coronary artery without angina pectoris; Z95.1 Presence of aortocoronary bypass graft; I65.23 Occlusion and stenosis of bilateral carotid arteries; E78.5 Hyperlipidemia, unspecified; E66.9 Obesity, unspecified; N40.0 Benign prostatic hyperplasia without lower urinary tract symptoms; M54.50 Low back pain, unspecified; M54.2 Cervicalgia; M25.50 Pain in unspecified joint; R42 Dizziness and giddiness

== ENCOUNTER 2025-04-23 07:57 | Outpatient (REF) | payer OTHER, SELFPAY ==
[2023-04-10 09:05] VITALS: BP 122/62; BP 122/68; BMI 32.9
--- NOTE | ~2025-04-23 | XR_ITS ---
EXAMINATION: XR LUMBOSACRAL SPINE CLINICAL INFORMATION: M54.50 - Low back pain, unspecified COMPARISON: None available. TECHNIQUE: AP and lateral views. FINDINGS: Multilevel endplate sclerosis and marginal osteophyte formation with decreased intervertebral disc height at L5-S1, L4-5, L3-4 and the lower thoracic spine. Probable grade 1 anterolisthesis L4-5 and L3-4. Subtle grade 1 retrolisthesis L2-3. Facet joint hypertrophy and L4-5 and L5-S1. Prominent transverse processes of L5. No lytic or blastic lesions. Vascular calcification, aorta. XR/XR lumbar spine 2-3V IMPRESSION: Multilevel thoracolumbar spondylosis, moderate. Probable grade 1 anterolisthesis L3-4 and L4-5 level. Atherosclerosis disease, aorta. Electronically signed by: Brenden Granados MD 04/23/2025 10:25 AM EDT
--- NOTE | ~2025-04-23 | XR_ITS ---
EXAMINATION: XR CERVICAL SPINE CLINICAL INFORMATION: M54.2 - Cervicalgia COMPARISON: None available. TECHNIQUE: AP lateral and atlantoodontoid views. FINDINGS: Craniocervical junction is intact. Endplate sclerosis and decreased intervertebral disc height C5-6 and C6-7 levels. No acute cortical disruption. Probable grade 1 anterolisthesis C4-5. No lytic or blastic lesions. Calcifications in the soft tissues of the left upper neck. Sternal wires. Metallic device in the left upper thorax no fully included in the [id number]. Upper airway is patent. XR/XR cervical spine 2V IMPRESSION: Cervical spondylosis C6-7 and to a lesser extent C5-6. Electronically signed by: Brenden Granados MD 04/23/2025 10:26 AM EDT
--- NOTE | ~2025-04-23 | XR_ITS ---
EXAMINATION: XR THORACIC SPINE CLINICAL INFORMATION: M54.2 - Cervicalgia COMPARISON: None available. TECHNIQUE: AP lateral and swimmer's projection FINDINGS: Mild multilevel endplate sclerosis and decreased intervertebral disc height. Small marginal osteophyte formation and lower thoracic spine/upper lumbar spine. S-shaped curvature of the thoracic spine which could be positional. No acute cortical disruption. No gross malalignment. No lytic or blastic lesions. Sternal wires and a heart valve prosthesis. Osteopenia versus osteoporosis. Metallic device overlaps the left upper hemithorax. XR/XR thoracic spine 2V IMPRESSION: Multilevel thoracolumbar spondylosis, mild. Mild S-shaped curvature/scoliosis. Electronically signed by: Brenden Granados MD 04/23/2025 10:23 AM EDT
[2025-04-23 10:05] LABS: MANUAL DIFF FLAG NO
[2025-04-23 10:31] LABS: Hematocrit 50.7 % (42.0-52.0); Hemoglobin 16.9 g/dl (14.0-18.0); Imm Gran Abs Auto 0.01 X10*3/uL (0.00-0.03); Imm Gran Pct Auto 0.2 % (0.0-0.4); Lymphocytes Absolute Auto 1.4 X10*3/uL (1.2-4.9); Mean Corpuscular HGB Conc 33.3 g/dl (31.0-36.0); Mean Corpuscular Hemoglobin 28.2 pg (27.0-33.0); Mean Corpuscular Volume 84.5 fL (80.0-98.0); NRBC Abs Auto 0.000 X10*3/uL (0.0-0.012); NRBC Pct Auto 0.0 /100WBC (0.0-0.2); Platelet Count 204 X10*3/uL (160-400); Red Blood Count 6.00 X10*6/uL (4.60-5.80); White Blood Count 5.2 X10*3/uL (4.8-10.8)
[2025-04-23 11:19] LABS: Alanine Aminotransferase 32 U/L (0-40); Albumin Level 4.6 g/dL (3.5-5.0); Alkaline Phosphatase 77 U/L (39-117); Anion Gap 11 (12-20); Aspartate Amino Transferase 28 U/L (5-37); Blood Urea Nitrogen 21 mg/dL (9-16); Calcium 9.4 mg/dL (8.4-10.2); Carbon Dioxide 25 mmol/L (22-29); Chloride 108 mmol/L (96-108); Estimated Glomerular Filt Rate > 60; Potassium 3.9 mmol/L (3.3-5.1); Sodium 140 mmol/L (135-145); Total Protein 6.9 g/dL (6.5-8.0)
[2025-04-23 11:23] LABS: Folate 11.2 ng/mL (> or = 4.0); Vitamin B12 654 pg/mL (200-900)
[2025-04-24 09:39] LABS: Lyme Abs Screen <0.90 index
[2025-04-26 17:33] LABS: PSA, Ultra Sensitive 0.89 ng/mL
== END 2025-04-23 07:58 | disposition home or self-care (01) ==
LOC: HO.LAB 07:57
DX: Z12.5 Encounter for screening for malignant neoplasm of prostate (principal); Z00.00 Encounter for general adult medical examination without abnormal findings; Z13.21 Encounter for screening for nutritional disorder; Z13.29 Encounter for screening for other suspected endocrine disorder; I10 Essential (primary) hypertension; I25.10 Atherosclerotic heart disease of native coronary artery without angina pectoris; I65.23 Occlusion and stenosis of bilateral carotid arteries; E78.5 Hyperlipidemia, unspecified; E66.9 Obesity, unspecified; N40.0 Benign prostatic hyperplasia without lower urinary tract symptoms; M54.50 Low back pain, unspecified; M54.2 Cervicalgia; M25.50 Pain in unspecified joint; R42 Dizziness and giddiness; Z68.31 Body mass index [BMI] 31.0-31.9, adult; Z95.2 Presence of prosthetic heart valve; Z95.1 Presence of aortocoronary bypass graft
CPT/HCPCS: 36415; 72040; 72070; 72100; 80053; 82306; 82607; 82746; 84153; 84443; 85025; 85652; 86140; 86431; 86617; 86618; 96127

== ENCOUNTER → 2025-04-23 08:53 | Outpatient (BNV) | payer OTHER, SELFPAY ==
[2023-04-10 09:05] VITALS: BP 122/62; BP 122/68; BMI 32.9
== END ==
PROVIDERS: Visit Provider Radiology Diagnostic Radiology
DX: M47.895 Other spondylosis, thoracolumbar region (principal); M47.22 Other spondylosis with radiculopathy, cervical region; M47.814 Spondylosis without myelopathy or radiculopathy, thoracic region
CPT/HCPCS: 72040; 72070; 72100

== ENCOUNTER 2025-05-12 14:54 | Outpatient (AMB) | payer OTHER, SELFPAY ==
[2023-04-10 09:05] VITALS: BP 122/62; BP 122/68; BMI 32.9
--- NOTE | 2025-05-12 14:58 | MHC.OFFVIS ---
Vital Signs 05/12/25 15:04 Height 5 ft 9 in Weight 216 lb 6 oz BMI 31.9 BP 164/93 H Blood Pressure Location Lt brachial Position Sitting Pulse 77 Pulse Source Pulse Oximeter Pulse Oximetry (%) 100 Oxygen Delivery Method Room Air Intake Visit Reasons: Cervicalgia Intake Note: Pain today 8/10 Sales Executive Required: No Accompanied by: Self / Same As Patient Allergies No Known Allergies Allergy (Verified 05/12/25 15:04) HPI Comments Details: The patient is a 64-year-old male presenting with neck and back pain. The neck pain began in December of this year without any specific injury, and it is described as pulsating and standing pain, sometimes radiating to the center of the back. The patient reports that the pain worsens with prolonged sitting and driving, and it is exacerbated by looking down or turning to the left. The patient also experiences lower back pain, which has been present for approximately a year and a half. The back pain is described as radiating to the buttocks and back of the legs, with a history of multilevel arthritis and slippage at L3-L4 and L4-L5 noted on recent imaging. The patient has not undergone any back surgery and reports that the pain is sometimes alleviated by lying down. The patient has a history of scoliosis, which contributes to muscle spasms and discomfort, particularly when sitting for extended periods. He also reports dizziness, which began after starting blood pressure medications post-CABG surgery three years ago. The dizziness is described as occasional waves that can cause nausea but are usually brief. Patient is scheduled for Carotid duplex US next month. He denies any history of diabetes and reports no use of tobacco, alcohol, or recreational drugs. - Onset: Neck pain began in December of this year; back pain has been present for approximately a year and a half. - Quality: Neck pain is pulsating, stabbing, throbbing, spasming and standing; back pain is radiating to the buttocks and legs. - Location: Neck and upper back; lower back with radiation to buttocks and legs. - Exacerbating factors: Prolonged sitting, driving, looking down, and turning to the left. - Relieving factors: Lying down provides some relief for back pain. - Interference: Pain affects driving, work, and recreational activities. - Affect: Pain impacts daily activities and causes difficulty concentrating. - Analgesia: Current pain level is 8/10; uses Tylenol for pain relief. - Adverse Effects: Dizziness reported as a side effect of cyclobenzaprine. - Activities of Daily Living: Pain limits ability to lift heavy objects, ROM and affects sleep and driving. - Aberrant Drug Related Behaviors: No aberrant behaviors reported. Oswestry Neck Pain Disability Score=18 [facility] Medical History CAD (coronary artery disease) History of kidney stones Hyperlipidemia Aortic stenosis HTN (hypertension) Surgical History S/P CABG x 3 S/P AVR History of appendectomy History of hernia surgery Family History Father CVD (cardiovascular disease) Mother CVD (cardiovascular disease) Social History Housing: House Alcohol intake: current Alcohol intake frequency: holidays/special occasions only Patient Tobacco Use Status: Never used Tobacco Tobacco use type: Cigarette e-Cigarette/Vaping Use: Never Used Second Hand Smoke Exposure: No service: No Current occupational status: employed Cognitive needs: No Hearing needs: No Vision needs: Yes (reading glasses) Review of Systems Const Details: - Musculoskeletal: Reports neck and back pain, limited range of motion in the neck, and muscle spasms. - Neurological: Reports dizziness and gait instability; denies headaches, numbness, or tingling. Denies weakness, bladder or bowel dysfunction or saddle anestheai. - Cardiovascular: Denies chest pain or palpitations, dyspnea, chest tightness or pressure. All systems reviewed & are unremarkable except as noted in HPI and below Physical Exam General: Appears afebrile. Alert and oriented. Mood and affect appropriate. Follows and participates in conversation appropriately. Respiratory effort is unlabored. No cough. Able to transition from sit to stand unassisted. Ambulates with bilaterally normal heel strike and toe off. Eyes General: appearance normal, both eyes and all related structures Neck Other: Patient with decreased cervical ROM in all planes/especially with left lateral rotation. Reports increased pain with cervical extension and flexion. Spurling compression test is negative bilaterally. Elvey's tension test negative bilaterally. Lhermitte's test was negative. DTR intact, +2 and symmetrical. Patient demonstrated 5/5 motor strength of bilateral upper extremities. 2 + radial pulses. Significant tightness throughout left upper trapezius as well as TTP throughout bilateral upper trapezius muscles. No paravertebral tenderness over facet joint on affected side. Multiple taut bands palpated throughout bilateral upper trapezius muscles. Neck: Yes normal visual inspection, Yes no lymphadenopathy, Yes supple, No anterior neck swelling, Yes no JVD, No prominent supraclavicular fat pad and Yes prominent dorsocervical fat pad General: Yes no CVA tenderness Back/Spine/Pelvis Other: Limited lumbar ROM due to pain. Normal but guarded gait, with no limping. Lumbar flexion and extension reproduce moderate pain, worse with bending and flexion forward. Demonstrates 5/5 strength of quadriceps bilaterally as well as flexion/dorsiflexion of bilateral feet against resistance. 2+ pedal pulses bilaterally. Straight leg rise with dorsiflexion negative bilaterally. +1 patellar and achilles reflexes bilaterally. Facet loading test positive bilaterally. Clara sign, Johnny?s, Pelvic compression and Stinchfield tests are negative bilaterally. No groin pain with I/E hip rotations. Valsalva maneuver negative. Back: no CVA tenderness Cervical Spine: loss of normal cervical lordosis, cervical muscular tenderness, pain with cervical ROM, No Cervical spine scars present, cervical spasm (left>right) and No Cervical spine tenderness Thoracic/Lumbar Spine: thoracic and lumbar spine normal to inspection, No Thoracic/lumbar spine scar(s), Lasegue's sign negative, straight leg raise negative bilaterally, pain with thoraco-lumbar ROM, paraspinal muscle tenderness, thoraco-lumbar ROM limited, Thoracic/lumbar scoliosis, No thoracic spinal tenderness and lumbar spinal tenderness (L4-S1) Sacroiliac joints: bilaterally nontender Extrem General: Yes capillary refill normal, Yes no clubbing, cyanosis or edema and Yes no calf tenderness Results Reviewed Results Reviewed: XR CERVICAL SPINE 04/23/25 CLINICAL INFORMATION: M54.2 - Cervicalgia COMPARISON: None available. TECHNIQUE: AP lateral and atlantoodontoid views. FINDINGS: Craniocervical junction is intact. Endplate sclerosis and decreased intervertebral disc height C5-6 and C6-7 levels. No acute cortical disruption. Probable grade 1 anterolisthesis C4-5. No lytic or blastic lesions. Calcifications in the soft tissues of the left upper neck. Sternal wires. Metallic device in the left upper thorax no fully included in the [id number]. Upper airway is patent. IMPRESSION: Cervical spondylosis C6-7 and to a lesser extent C5-6. XR THORACIC SPINE 04/23/25 CLINICAL INFORMATION: M54.2 - Cervicalgia COMPARISON: None available. TECHNIQUE: AP lateral and swimmer's projection FINDINGS: Mild multilevel endplate sclerosis and decreased intervertebral disc height. Small marginal osteophyte formation and lower thoracic spine/upper lumbar spine. S-shaped curvature of the thoracic spine which could be positional. No acute cortical disruption. No gross malalignment. No lytic or blastic lesions. Sternal wires and a heart valve prosthesis. Osteopenia versus osteoporosis. Metallic device overlaps the left upper hemithorax. IMPRESSION: Multilevel thoracolumbar spondylosis, mild. Mild S-shaped curvature/scoliosis. XR LUMBOSACRAL SPINE 04/23/25 CLINICAL INFORMATION: M54.50 - Low back pain, unspecified COMPARISON: None available. TECHNIQUE: AP and lateral views. FINDINGS: Multilevel endplate sclerosis and marginal osteophyte formation with decreased intervertebral disc height at L5-S1, L4-5, L3-4 and the lower thoracic spine. Probable grade 1 anterolisthesis L4-5 and L3-4. Subtle grade 1 retrolisthesis L2-3. Facet joint hypertrophy and L4-5 and L5-S1. Prominent transverse processes of L5. No lytic or blastic lesions. Vascular calcification, aorta. IMPRESSION: Multilevel thoracolumbar spondylosis, moderate. Probable grade 1 anterolisthesis L3-4 and L4-5 level. Atherosclerosis disease, aorta. Assessment & Plan Assessment & Plan (1) Low back pain: Code(s): M54.50 - Low back pain, unspecified Category: Medical (2) Lumbar radiculopathy: Code(s): M54.16 - Radiculopathy, lumbar region Category: Medical (3) Spondylolisthesis, lumbar region: Code(s): M43.16 - Spondylolisthesis, lumbar region Category: Medical (4) Lumbar spondylosis: Code(s): M47.816 - Spondylosis without myelopathy or radiculopathy, lumbar region Category: Medical (5) Low back pain: Code(s): M54.50 - Low back pain, unspecified Category: Medical (6) Lumbar radiculopathy: Code(s): M54.16 - Radiculopathy, lumbar region Category: Medical (7) Spondylolisthesis, lumbar region: Code(s): M43.16 - Spondylolisthesis, lumbar region Category: Medical (8) Neck pain: Code(s): M54.2 - Cervicalgia Category: Medical (9) Cervical spondylosis: Code(s): M47.812 - Spondylosis without myelopathy or radiculopathy, cervical region Category: Medical (10) Cervical vertigo: Code(s): R42 - Dizziness and giddiness Category: Medical Plan The plan for managing the patient's neck and back pain includes initiating physical therapy to address the tightness and improve range of motion. Diagnostic cervical or lumbar medial branch block injections are considered to evaluate the potential for radiofrequency ablation or Sprint PNS trial, which could provide long-term pain relief. An MRI of the back is planned to further assess the extent of degenerative changes and spondylolisthesis in the setting of balance and gait issues, associated with dizziness as well. Vestibular Therapy is considered to manage dizziness symptoms. The patient is advised to continue using Tylenol and Salonpas patches for pain management and to avoid medications that have previously caused dizziness. Recommendations include using cervical and lumbar support pillows and considering ergonomic adjustments at work to alleviate discomfort. All questions and concerns have been answered and patient agreed with the treatment plan. Follow up for MRI results/after PT and sooner as needed. Patient was informed and verbally consented to the use of an ambient scribe for clinic note documentation during this visit. Orders: Orders MR lumbar spine wo con Today M43.16 - Spondylolisthesis, lumbar region, M47.816 - Spondylosis without myelopathy or radiculopathy, lumbar region, M54.16 - Radiculopathy, lumbar region, M54.50 - Low back pain, unspecified PT Evaluation and Treatment Today M43.16 - Spondylolisthesis, lumbar region, M47.812 - Spondylosis without myelopathy or radiculopathy, cervical region, M47.816 - Spondylosis without myelopathy or radiculopathy, lumbar region, M54.16 - Radiculopathy, lumbar region, M54.2 - Cervicalgia, M54.50 - Low back pain, unspecified PT Evaluation and Treatment Today R42 - Dizziness and giddiness Medications: Discontinued cyclobenzaprine Discontinued Reason: Patient no longer taking 5 mg PO BEDTIME 30 tabs 0RF Coding Level of Care Code New Pt Level 4 (85989) Diagnoses Low back pain M54.50 Lumbar radiculopathy M54.16 Spondylolisthesis, lumbar region M43.16 Lumbar spondylosis M47.816 Neck pain M54.2 Cervical spondylosis M47.812 Cervical vertigo R42
[2025-05-12 15:04] VITALS: BP 164/93; PULSE 77; O2SAT 100; BMI 31.9
== END 2025-05-12 15:40 | disposition home or self-care (01) ==
LOC: HO.PMC 14:55
PROVIDERS: Visit Provider Nurse Practitioner Family
DX: M54.50 Low back pain, unspecified (principal); M54.16 Radiculopathy, lumbar region; M43.16 Spondylolisthesis, lumbar region; M47.816 Spondylosis without myelopathy or radiculopathy, lumbar region; M54.2 Cervicalgia; M47.812 Spondylosis without myelopathy or radiculopathy, cervical region; R42 Dizziness and giddiness
CPT/HCPCS: 99204

== ENCOUNTER 2025-06-11 14:36 | Outpatient (REF) | payer OTHER, SELFPAY ==
[2023-04-10 09:05] VITALS: BP 122/62; BP 122/68; BMI 32.9
--- NOTE | ~2025-06-11 | US_ITS ---
EXAMINATION: BILATERAL CAROTID ULTRASOUND WITH DOPPLER HISTORY: I65.23 - Occlusion and stenosis of bilateral carotid arteries COMPARISON: Comparison is made with the prior examination dated 09/08/2022. TECHNIQUE: Real time and Color and Spectral doppler ultrasonography of the carotid and vertebral arteries was performed in multiple planes. FINDINGS: A small amount of plaque is seen bilaterally. VERTEBRAL FLOW DIRECTION: Antegrade bilaterally. PEAK SYSTOLIC VELOCITIES (in cm/sec): RIGHT: CCA: Prox: 131 Dist: 101 ICA: Prox: 108 Mid: 74.6 Dist: 70.4 ICA/CCA Ratio: 0.82 ECA: 138 Peak ICA end diastolic velocity (EDV): 29.9 LEFT: CCA: Prox: 121 Dist: 103 ICA: Prox: 73.9 Mid: 100 Dist: 71.5 ICA/CCA Ratio: 0.61 ECA: 112 Peak ICA end diastolic velocity (EDV): 38.7 US/US carotid duplex BI IMPRESSION: Findings consistent with 0-49% stenosis of the bilateral internal carotid arteries. Electronically signed by: Alejandro Hernandes MD 06/11/2025 03:06 PM EDT
--- OUTSIDE RECORDS SUMMARY | 2025-06-11 20:47 | XMS_ITS | Clinical Summary ---
Author Organization [facility] Address [address] [place] [address] Care Team Providers Care Brake Operator Heavy Duty Name Role Phone Ref, Has No Pcp [...] care physician. He declined a referral to [facility] E[facility] clinic. Hypertensive urgency 11/05/2020 Assessment [...] complete this topic Procedures * Due to [place] state law, this organization might not be sharing negative HIV tests. Procedure Name Priority Date/Time Associated Diagnosis Comments BASIC METABOLIC PANEL STAT 02/26/2025 10:05 AM EDT HEPATITIS C ANTIBODY W/REFLEX TO HCV RNA, QUANTITATIVE PCR STAT 11/05/2020 1:59 PM EDT from Last 3 Months or Most Recently Relevant to Health Maintenance Results * Due to [place] [employer] law, this organization might not be sharing negative HIV tests. * (ABNORMAL) Basic Metabolic Panel (02/26/2025 10:05 AM EDT) NA 139 135 - 145 mmol/L 02/26/2025 10:51 AM EDT [facility] K 4.1 3.5 - 5.3 mmol/L 02/26/2025 10:51 AM EDT [facility] Cl 104 98 - 107 mmol/L 02/26/2025 10:51 AM EDT [facility] CO2 22 22 - 32 mmol/L 02/26/2025 10:51 AM EDT [facility] BUN 19 7 - 23 mg/dL 02/26/2025 10:51 AM EDT [facility] Creatinine 0.87 0.60 - 1.30 mg/dL 02/26/2025 10:51 AM EDT [facility] Glucose 126(H) 65 - 99 mg/dL 02/26/2025 10:51 AM EDT [facility] Calcium 9.6 8.6 - 10.5 mg/dL 02/26/2025 10:51 AM EDT [facility] Anion Gap 13 5 - 15 02/26/2025 10:51 AM EDT [facility] eGFR >90 >=60 mL/min/1. 73m2 02/26/2025 10:51 AM EDT [facility] Comment:The estimated glomer ular [...] Christianson MD LAB BLOOD ORDERABLES Final Result [facility] [address] [place] [id number], * Hepatitis C Antibody w/Reflex to HCV RNA, Quantitative PCR (11/05/2020 1:59 PM EDT) Hepatitis C Antibody NON-REACT JAYME NON-REACT JAYME 11/06/2020 2:21 AM EDT [facility] Signal To Cut-Off 0.01 <1.00 11/06/2020 2:21 AM EDT [facility] Comment: HCV antibody was non-reactive. There is no laboratory evidence of HCV infection. In most cases, no further action is required. However, if recent HCV exposure is suspected, a test for HCV RNA (test code 17161) is suggested. For additional information please refer to http://education.Njuice.Wooga/faq/KFX09i9 (This link is being provided for informational/ educational purposes only.) Blood Structure of peripheral vein / Unknown Venipuncture / Unknown 11/05/2020 1:59 PM EDT 11/05/2020 2:12 PM EDT Narrative [facility] - 11/06/2020 2:21 AM EDT [facility] Received Date:[id number] us Gerry Recio MD LAB BLOOD ORDERABLES Final R esult [facility]AM[facility] [address], [address] [facility] [place] [place] [address], [place] [phone] [facility] [address], [address] [facility] [place] [place] [address], [place] [phone] from Last 3 Months or Most Recently Relevant to Health Maintenance Insurance [employer] PPO/EPO/IND WC [employer] Advance Directives Documents on File Type Date Recorded Patient Health Evaluator Expl anation Health Care Proxy 11/06/2020 3:00 [...] Mony Balbuena Daughter Alternate Health Care A gent Care Teams Brake Operator Heavy Duty Relationship Specialty Start Date End Date Ref, Has No Pcp Or DO NOT EDIT THIS RECORD VIA PROVIDER ON THE FLY PCP - General Archival Records Clerk 11/05/20
--- OUTSIDE RECORDS SUMMARY | 2025-06-11 20:47 | XMS_ITS | Encounter Summary ---
Author Organization [facility] Address [address] [place] [address] Care Team Providers Care Precision Machining Instructor Name Role Phone Ref, Has No Pcp Or Primary Care Provider Unavail able Encounter Details Date Type Department Care Team (Late st Contact Info) Description 02/15/2025 Telephone [facility] Nuclear Medicine [address] [place] [phone] Gunjan Doe RN Social History Tobacco Use [...] on filedocumented in this encounter Care Teams Precision Machining Instructor Relationship Specialty Start Date End Date Ref, Has No Pcp Or DO NOT EDIT THIS RECORD VIA PROVIDER ON THE FLY PCP - General Cabinetmaker Helper 11/05/20 documented as of this encounter
== END 2025-06-11 14:37 | disposition home or self-care (01) ==
LOC: HO.HMGCX 14:36
DX: I65.23 Occlusion and stenosis of bilateral carotid arteries (principal)
CPT/HCPCS: 93880

== ENCOUNTER → 2025-06-11 14:38 | Outpatient (BNV) | payer OTHER, SELFPAY ==
[2023-04-10 09:05] VITALS: BP 122/62; BP 122/68; BMI 32.9
== END ==
PROVIDERS: Visit Provider Radiology Diagnostic Radiology
DX: I65.23 Occlusion and stenosis of bilateral carotid arteries (principal)
CPT/HCPCS: 93880

== ENCOUNTER 2025-07-21 08:26 | Outpatient (AMB) | payer OTHER, SELFPAY ==
[2023-04-10 09:05] VITALS: BP 122/62; BP 122/68; BMI 32.9
--- NOTE | 2025-07-21 08:33 | A.OFFPC_ITS ---
Vital Signs 07/21/25 08:35 07/21/25 08:55 Height 5 ft 9 in Weight 228 lb 8 oz BMI 33.7 BP 140/90 H 144/88 H Blood Pressure Location Lt brachial Lt brachial Position Sitting Sitting Pulse 86 Pulse Source Pulse Oximeter Temp 97.3 F Temp Source Temporal Artery Scan Pulse Oximetry (%) 93 Oxygen Delivery Method Room Air Intake Visit Reasons: 3 month follow up Intake Note: Patient is here to follow up on CAD, BPH, HLD, HTN. Fountain Server Required: No Ditch Cleaner: Not Required per policy Accompanied by: Self / Same As Patient Allergies No Known Allergies Allergy (Verified 07/21/25 08:47) Medication List - Last Reconciled 07/21/25 by Gayathri Amin PA-C amlodipine 5 mg PO DAILY aspirin 81 mg PO DAILY atorvastatin 40 mg PO BEDTIME carvedilol 6.25 mg PO BID ezetimibe 10 mg PO DAILY magnesium 200 mg PO BID Tobacco use date assessed: 07/21/25 Fall risk assessment: No Falls in past year Last assessed Fall Risk: 07/21/25 Dental Screening Dental Screen Date: 04/23/25 HPI 3 month follow up HPI Details 65-year-old male with past medical histo ry of hypertension, hyperlipidemia, bilateral carotid stenosis, BPH, coronary artery disease s/p CABG x3 last seen 05/15 coming in for follow up. In review of the notes, patient was seen by pain management 04/2025 conservative measurement with physical therapy and [id number] medications and plan for MRI of the lumbar spine. Presenting for a follow-up visit for management of chronic conditions. The patient has been attending physical therapy since early May, which has resulted in three to four-day stretches of feeling good. The patient tries to adhere to a prescribed exercise program. Over the weekend, the patient experienced significant mid-back and left-sided sciatic-type pain involving the back and hip after physical activities like hanging lights and climbing ladders. For pain, the patient has been taking magnesium 200 mg twice a day as recommended by pain management, and occasionally uses Tylenol and topical patches. Symptoms of dizziness have improved and are now occasional, rather than daily, sometimes occurring with increased back pain. The patient's blood pressure is reportedly well-controlled at home, with a recent reading of 127/72 mmHg. The office reading was elevated, but the patient had not yet taken the morning blood pressure medication. [facility] Medical History CAD (coronary artery disease) History of kidney stones Hyperlipidemia Aortic stenosis HTN (hypertension) Surgical History S/P CABG x 3 S/P AVR History of appendectomy History of hernia surgery Family History Father CVD (cardiovascular disease) Mother CVD (cardiovascular disease) Social History Housing: House Alcohol intake: current Alcohol intake frequency: holidays/special occasions only Patient Tobacco Use Status: Never used Tobacco Tobacco use type: Cigarette e-Cigarette/Vaping Use: Never Used Second Hand Smoke Exposure: No service: No Current occupational status: employed Cognitive needs: No Hearing needs: No Vision needs: Yes (reading glasses) Questionnaire Thrive Questionnaire Date Thrive assessed: 04/23/25 I am a: Patient What is your living situation today?: I have a steady place to live Within the past 12 months, did the food you bought not last and you didn't have the money to get more?: Never true Within the past 12 months, did you worry whether your food would run out before you got money to buy more?: Never true Do you have trouble paying for medicines?: No Do you have trouble getting transportation to medical appointments?: No Do you have trouble paying your heating and electricity bill?: No Do you have trouble taking care of your child, family member or friend?: No Do you have trouble with day-to-day activities such as bathing, preparing meals, shopping, managing finances, etc.?: No Are you currently unemployed and looking for a job?: No Are you interested in more education?: No Please select the resources that you would like help with: None Currently or been in a relationship where the following occur: No concerns reported THRIVE Score: 0 VALDO-7 AMB Questionnaire VALDO-7 Date VALDO - 7 assessed: 04/23/25 Source: Developed by Drs. Alejandro Diaz, Neeta MontoyaVince and colleagues, with an educational ignacia from [employer]. Review of Systems Const Denies body aches, Denies chills, Denies fever(s), Denies headache(s) and Denies poor appetite Eyes Reports no additional complaints ENT Reports dizziness (as per HPI ) and Denies headache(s) Card Denies chest pain, Denies edema, Denies irregular heart rhythm, Denies lightheadedness and Denies dyspnea Resp Denies cough and Denies dyspnea GI Denies abdominal pain, Denies nausea and Denies vomiting Reports no additional complaints Musc Reports no additional complaints and Denies abnormal gait Skin/Breast Reports system reviewed and no additional complaints, except as documented Neuro Denies abnormal gait, Reports dizziness (as per HPI ) and Denies headache(s) Psych Reports no additional complaints Physical exam (Primary Care) Vital Signs: Last Vital Signs Temp 97.3 F 07/21/25 08:35 Pulse 86 07/21/25 08:35 BP 144/88 H 07/21/25 08:55 Pulse Ox 93 07/21/25 08:35 Oxygen Delivery Method Room Air 07/21/25 08:35 BMI result Body Mass Index 33.7 Tobacco/Smoking Status: Tobacco use Status Tobacco use date assessed 07/21/25 07/21/25 08:39 Patient Tobacco Use Status Never used Tobacco 07/21/25 08:39 Tobacco use type Cigarette 07/21/25 08:39 e-Cigarette/Vaping Use Never Used 07/21/25 08:39 Thrive Assessment: Date of Thrive Assessment Date Thrive assessed 04/23/25 07/21/25 08:39 Currently or been in a relationship where the following occur: No concerns reported Const General: cooperative, healthy appearing, comfortable and no acute distress Orientation/consciousness: patient oriented x3 [facility] Head: Yes normocephalic Ears: hearing grossly normal bilaterally General nose exam: Normal external nose present Eyes General: appearance normal, both eyes and all related structures Conjunctivae: conjunctivae normal Neck Neck: Yes full ROM and Yes no lymphadenopathy Resp Effort & Inspection: normal respiratory effort Auscultation: clear to auscultation bilaterally, no crackles, no rales, no rhonchi and no wheezes Cardio Rate: regular rate Rhythm: regular rhythm Skin General skin exam: no rashes or lesions noted Neuro General: patient oriented x3 Gait exam (Neuro): Normal gait present Extrem General: Yes normal to inspection, Yes full ROM and No edema Psych Affect: normal affect Attitude: cooperative Insight: Good insight present (Psych) Judgement: Good judgement present (Psych) Coding Level of Care Code Est Pt Level 3 (56657) Diagnoses HTN (hypertension) I10 CAD (coronary artery disease) I25.10 Hyperlipidemia E78.5 Obesity E66.9 Low back pain M54.50 Dizziness R42 Elevated blood sugar R73.9 Assessment & Plan Assessment & Plan (1) HTN (hypertension): Code(s): I10 - Essential (primary) hypertension Category: Medical Plan: Continue on current blood pressure medication. Avoid salt intake and encourage healthy diet and regular exercise. Home Blood pressure log reviewed and have been within acceptable range (2) CAD (coronary artery disease): Code(s): I25.10 - Atherosclerotic heart disease of [place] coronary artery without angina pectoris Category: Medical Plan: Continue to work on cholesterol with atorvastatin 40 mg, blood pressure with carvedilol 6.25 mg b.i.d. and amlodipine 5 mg and blood sugar control. Continue to follow with Cardiology (3) Hyperlipidemia: Code(s): E78.5 - Hyperlipidemia, unspecified Category: Medical Plan: Avoid foods that are high in cholesterol such as red meat, fried foods, eggs and baked goods. Triglyceride goal of less than 150 and LDL goal of less than 70. Continue on atorvastatin 40 and Zetia 10. Ordered for repeat blood work prior to next visit (4) Obesity: Code(s): E66.9 - Obesity, unspecified Category: Medical Plan: Noted 12 lb weight gain since last visit which patient attributes to the holiday season. Healthy diet and regular exercise is encouraged. (5) Low back pain: Code(s): M54.50 - Low back pain, unspecified Category: Medical Plan: Continue to follow with physical therapy. Patient is advised to reach out to pain management if pain does not improve. (6) Dizziness: Code(s): R42 - Dizziness and giddiness Category: Medical Plan: Improved. Patient will continue to monitor at this time and recent carotid ultrasound is unchanged (7) Elevated blood sugar: Code(s): R73.9 - Hyperglycemia, unspecified Category: Medical Plan: Decrease the amount of carbohydrates such as pasta, bread, rice, and potatoes and limit the amount of sweets. Although fruits are generally healthy they should be eaten in moderation as they are still high in sugar. Plan This note was constructed using voice recognition software. While every effort has been made to ensure accuracy and audograph operator, still areas may have been included sometimes these areas may affect the content or meeting of the given symptoms. Total time spent caring for the patient today was 20 minutes. This includes time spent before the visit reviewing the chart, time spent during the visit, and time spent after the visit and documentation. Patient was informed and verbally consented to the use of an ambient scribe for clinic note documentation during this visit. Orders: Orders Lipid Panel Today E78.00 - Pure hypercholesterolemia, unspecified Hemoglobin A1c Today R73.9 - Hyperglycemia, unspecified
[2025-07-21 08:35] VITALS: BP 140/90; PULSE 86; TEMP 36.3; O2SAT 93; BMI 33.7
--- OUTSIDE RECORDS SUMMARY | 2025-07-21 08:42 | XMS_ITS | Encounter Summary ---
Author Organization [facility] Address [address] [place] [address] Care Team Providers Care Roller Machine Operator Name Role Phone Ref, Huber Primary Care Provider Unavailabl e Encounter Details Date Type Department Care Team (Late st Contact Info) Description 02/15/2025 Telephone [facility] Nuclear Medicine [address] [place] [id number] Gunjan Doe RN Social History Tobacco Use [...] on file documented as of this encounter Functional Status documented as of this encounter Plan of Treatment Not on file documented as of this encounter Visit Diagnoses Not on filedocumented in this encounter Care Teams Roller Machine Operator Relationship Specialty Start Date End Date Ref, Huber DO NOT EDIT THIS RECORD VIA PROVIDER ON THE FLY PCP - General Heating Element Builder 11/05/20 documented as of this encounter
--- OUTSIDE RECORDS SUMMARY | 2025-07-21 08:42 | XMS_ITS | Clinical Summary ---
Author Organization [facility] Address [address] [place] [address] Care Team Providers Care Dba Developer Name Role Phone Ref, Hasnopcp Primary Care Provider Unavailabl e Allergies No known active allergies Medications atorvastatin [...] care physician. He declined a referral to [facility] ENT clinic. Hypertensive urgency 11/05/2020 Assessment [...] of Health Annual Screening 08/21/2024 Influenza Vaccine (#1) 2025 COVID-19 Vaccine ( season) 2025 12/01/2023, 04/06/2022, 07/27/2021, Additional history exists Basic Metabolic Panel 02/26/2026 02/26/2025 , 02/14/2025, 11/07/2020, Additional history exists Diabetes Screening 02/27/2028 02/26/2025, 0 02/14/2025, 11/07/2020, Additional history exists Hepatitis C Screening Completed 11/05/2020 RSV Vaccine (60+ years old and patients) Completed 12/01/2023 Hepatitis B Vaccines Aged Out No long er eligible based on patient's age to complete this topic Procedures * Due to [place] state law, this organization might not be sharing negative HIV tests. Procedure Name Priority Date/Time Associated Diagnosis Comments BASIC METABOLIC PANEL STAT 02/26/2025 10:05 AM EDT HEPATITIS C ANTIBODY W/REFLEX TO HCV RNA, QUANTITATIVE PCR STAT 11/05/2020 1:59 PM EDT from Last 3 Months or Most Recently Relevant to Health Maintenance Results * Due to [place] [employer] [facility] [employer] law, this organization might not be sharing negative HIV tests. * (ABNORMAL) Basic Metabolic Panel (02/26/2025 10:05 AM EDT) NA 139 135 - 145 mmol/L 02/26/2025 10:51 AM EDT [email or web address] K 4.1 3.5 - 5.3 mmol/L 02/26/2025 10:51 AM EDT [email or web address] Cl 104 98 - 107 mmol/L 02/26/2025 10:51 AM EDT [email or web address] CO2 22 22 - 32 mmol/L 02/26/2025 10:51 AM EDT [email or web address] BUN 19 7 - 23 mg/dL 02/26/2025 10:51 AM EDT [email or web address] Creatinine 0.87 0.60 - 1.30 mg/dL 02/26/2025 10:51 AM EDT [facility] Glucose 126(H) 65 - 99 mg/dL 02/26/2025 10:51 AM EDT [email or web address] Calcium 9.6 8.6 - 10.5 mg/dL 02/26/2025 10:51 AM EDT [email or web address] Anion Gap 13 5 - 15 02/26/2025 10:51 AM EDT [email or web address] eGFR >90 >=60 mL/min/1. 73m2 02/26/2025 10:51 AM EDT [facility] Comment:The estimated glomer ular filtration rate (eGFR) is calculated using a new formula developed by the NKF-ASN task force to eliminate race-based correction factors. The new formula uses serum/plasma creatinine, age, and gender to determine eGFR. A value below 60mls/min might indicate kidney disease and will be flagged. For additional information, see Breonna robbins al, Am J Kidney Dis. 2021;79(2):268- 288, A Unifying Approach for GFR estimation: Recommendations of the NKF-ASN Task Force on Reassessing the Inclusion of Race in Diagnosing Kidney Disease . Blood Structure of peripheral vein / Unknown Venipuncture / Unknown 02/26/2025 10:05 AM EDT 02/26/2025 10:19 AM EDT Lionel Christianson MD LAB BLOOD ORDERABLES Final Result [facility] [address] [place] [id number], * Hepatitis C Antibody w/Reflex to HCV RNA, Quantitative PCR (11/05/2020 1:59 PM EDT) Hepatitis C Antibody NON-REACT JAYME NON-REACT JAYME 11/06/2020 2:21 AM EDT [facility] Signal To Cut-Off 0.01 <1.00 11/06/2020 2:21 AM EDT [facility] Comment: HCV antibody was non-reactive. There is no laboratory evidence of HCV infection. In most cases, no further action is required. However, if recent HCV exposure is suspected, a test for HCV RNA (test code 07259) is suggested. For additional information please refer to http://education.CBTec.BzzAgent/faq/VQX13i3 (This link is being provided for informational/ educational purposes only.) Blood Structure of peripheral vein / Unknown Venipuncture / Unknown 11/05/2020 1:59 PM EDT 11/05/2020 2:12 PM EDT Narrative [facility] - 11/06/2020 2:21 AM EDT [facility] Received Date:[id number] Gerry Recio MD LAB BLOOD ORDERABLES Final R esult [facility] [address], [place] [address], [place] [phone] [facility] [address], [address] [place] [address], [place] [phone] from Last 3 Months or Most Recently Relevant to Health Maintenance Insurance [employer] PPO/EPO/IND WC [employer] Advance Directives Documents on File Type Date Recorded Patient Reference Investigator Expl anation Health Care Proxy 11/06/2020 3:00 [...] Alternate Health Care A gent Care Teams Dba Developer Relationship Specialty Start Date End Date Ref, Hasnopcp DO NOT EDIT THIS RECORD VIA PROVIDER ON THE FLY PCP - General Press Officer 11/05/20
[2025-07-21 08:55] VITALS: BP 144/88
== END 2025-07-21 09:04 | disposition home or self-care (01) ==
LOC: HO.HMCH 08:27
DX: I10 Essential (primary) hypertension (principal); E66.9 Obesity, unspecified; I25.10 Atherosclerotic heart disease of native coronary artery without angina pectoris; Z68.33 Body mass index [BMI] 33.0-33.9, adult; E78.5 Hyperlipidemia, unspecified; M54.50 Low back pain, unspecified; R42 Dizziness and giddiness; R73.9 Hyperglycemia, unspecified